=== PATIENT | female | born 1935 | race Caucasian/White ===

== ENCOUNTER → 2017-11-29 08:22 | Outpatient (CLI) | payer MEDICARE, SELFPAY ==
--- NOTE | 2017-11-29 | DI.MG.S_ITS ---
UNILATERAL LEFT DIGITAL SCREENING MAMMOGRAM 3D/2D WITH CAD POST MASTECTOMY: 11/29/2017 CLINICAL: Routine screening. Personal history of right breast cancer. Family history of breast cancer. Comparison is made to exams dated: 11/18/2016 mammogram, 07/18/2014 mammogram, and 04/12/2013 mammogram - [facility]. There are scattered fibroglandular elements in the left breast. Current study was also evaluated with a Computer Aided Detection (CAD) system. No significant masses, calcifications, or other findings are seen in the breast. There has been no significant interval change. IMPRESSION: NEGATIVE There is no mammographic evidence of malignancy. A 1 year screening mammogram is recommended. This exam was interpreted at Station ID: [id number]. NOTE: For mammograms, a report in lay terms will be sent to the patient. Approximately 15% of breast malignancies will not be visualized mammographically. In the management of a palpable breast mass, a negative mammogram must not discourage biopsy of a clinically suspicious lesion. Electronically Signed By: Gatito mckeon/eileen:12/01/2017 09:52:21 letter sent: Normal Exam ACR BI-RADS Category 1: Negative [id number]
== END ==
PROVIDERS: Family Provider Family Medicine; PCP Family Medicine; Visit Provider Family Medicine
DX: Z12.31 Encounter for screening mammogram for malignant neoplasm of breast (principal); Z85.3 Personal history of malignant neoplasm of breast; Z80.3 Family history of malignant neoplasm of breast
CPT/HCPCS: 77063; 77065

== ENCOUNTER → 2018-02-18 14:54 | Outpatient (CLI) | payer MEDICARE, SELFPAY | PROVIDERS: Family Provider Family Medicine; PCP Family Medicine; Visit Provider Family Medicine | DX: M85.851 Other specified disorders of bone density and structure, right thigh (principal); Z78.0 Asymptomatic menopausal state; Z85.3 Personal history of malignant neoplasm of breast; Z87.891 Personal history of nicotine dependence | CPT/HCPCS: 77080 ==

== ENCOUNTER 2018-05-27 18:20 | Inpatient (IN) | payer MEDICARE, SELFPAY ==
[2018-05-27 18:27] VITALS: BP 86/45; PULSE 65; RESP 18; TEMP 36.4; O2SAT 98; BMI 21.9
--- NOTE | 2018-05-27 18:31 | DI.CT.S_ITS ---
PROCEDURE: CT ABDOMEN PELVIS W CON INDICATIONS: trauma with lower back pain TECHNIQUE: After the administration of intravenous contrast, 5 mm thick sections acquired from the diaphragm to the symphysis. 5 mm coronal and sagittal reformats were acquired. For radiation dose reduction, the following was used: automated exposure control, adjustment of mA and/or kV according to patient size. COMPARISON: , CR, CHEST 2 VIEW, 06/26/2013, 21:25. , CT, THORAX WITH CONTRAST, 06/23/2013, 10:12. FINDINGS: Image quality: Excellent. ABDOMEN: Lung bases: Lung bases are clear. Heart size is normal. Solid organs: Liver is normal in size and enhancement. A low-density cystic lesion is present within hepatic segment VII which likely represents a simple hepatic cyst but is incompletely characterized. Gallbladder is surgically absent. Biliary system is mildly dilated likely secondary to cholecystectomy and patient age. Pancreas enhances normally. Spleen is normal in size and enhancement. No adrenal nodules. Kidneys demonstrate normal size and enhancement, without hydronephrosis. Peritoneum and bowel: Bowel loops demonstrate normal wall thickness and caliber. No free fluid or air. Nodes and vessels: No retroperitoneal or mesenteric adenopathy by size criteria. Aorta and inferior vena cava are normal in size. There are scattered atheromatous calcifications throughout the aorta and iliac arteries bilaterally. Miscellaneous: No ventral hernias. PELVIS: Genitourinary: Bladder wall thickness is normal. Miscellaneous: No inguinal hernias or adenopathy. Bones: A severe wedge compression deformity is present at L1. This was likely present on the plain film dated 06/26/13. There is an acute appearing minimally displaced comminuted fracture at the superior L2 endplate which involves the anterior column. There is likely a small paraspinous hematoma at this level. fracture of the anterior superior L2 endplate. IMPRESSION: 1. Findings suspicious for acute comminuted minimally displaced superior L2 endplate anterior column compression fracture. 2. No other acute intra-abdominal findings. These findings were discussed with Kristy Powers at 7:48 PM on 05/27/18. Dictated by: Melissa Barrera M.D. on 05/27/2018 at 19:39 Approved by: Melissa Barrera M.D. on 05/27/2018 at 19:49
--- NOTE | 2018-05-27 18:31 | DI.CT.S_ITS ---
PROCEDURE: CT HEAD/BRAIN WO CON INDICATIONS: Fall. TECHNIQUE: Noncontrast 4.5 mm thick angled axial sections acquired from the foramen magnum to the vertex, with coronal and sagittal reformats. For radiation dose reduction, the following was used: automated exposure control, adjustment of mA and/or kV according to patient size. COMPARISON: None. FINDINGS: Image quality: Excellent. CSF spaces: Basal cisterns are patent. No extra-axial fluid collections. The ventricles are symmetric in size and shape. There is an incidentally noted septum pellucidum. Brain: No intracranial masses. A punctate high-density focus is present within the right basal ganglia (series 2, image 12). No other findings suspicious for intracranial hemorrhage. There is cerebral volume loss for age, with resultant ventricular and sulcal prominence. There are periventricular and deep white matter chronic small vessel ischemic changes. There is intracranial internal carotid artery atherosclerosis. Skull and face: Calvarium and visualized facial bones appear intact, without suspicious lesions. Sinuses: Visualized sinuses and mastoids are clear. IMPRESSION: 1. Punctate high-density focus within the right basal ganglia which likely represents calcification. However, no prior studies are available. If there is clinical suspicion for intraparenchymal hemorrhage, a followup [address] could be used to ensure stability of this finding. No other acute intracranial findings. 2. Findings likely associated with chronic microvascular ischemic changes. Dictated by: Melissa Barrera M.D. on 05/27/2018 at 19:37 Approved by: Melissa Barrera M.D. on 05/27/2018 at 19:39
--- NOTE | 2018-05-27 18:31 | DI.CT.S_ITS ---
PROCEDURE: CT CERVICAL SPINE WO CON INDICATIONS: Fall TECHNIQUE: Noncontrast 3 mm thick sections acquired from the skull base to the T4 level. Sagittal and coronal reformats were then constructed. For radiation dose reduction, the following was used: automated exposure control, adjustment of mA and/or kV according to patient size. COMPARISON: [facility], CT, THORAX WITH CONTRAST, 06/23/2013, 10:12. FINDINGS: Image quality: Excellent. Bones: No acute fracture dislocation. There is loss of the expected cervical lordosis and mild kyphosis centered at C6-7. Severe degenerative changes are present throughout the visualized portions of the cervicothoracic spine including intervertebral disc space narrowing, endplate sclerosis, and osteophytosis. Endplate depression is noted at multiple levels. Soft tissues: Prevertebral soft tissues are normal in thickness. No paravertebral hematomas. No apical pneumothoraces. IMPRESSION: 1. Severe degenerative change and multilevel endplate compression deformities. Overall, these have a sclerotic chronic appearance; however no comparison is available to truly determine the acuity of these findings. If there is high clinical suspicion for occult endplate compression deformity, noncontrast MRI of the cervical spine is recommended to evaluate for marrow edema. 2. No other findings to suggest acute cervical spine injury. Dictated by: Melissa Barrera M.D. on 05/27/2018 at 19:32 Approved by: Melissa Barrera M.D. on 05/27/2018 at 19:36
--- NOTE | 2018-05-27 18:34 | ED_ITS ---
HPI - Trauma General Chief Complaint: Trauma Stated Complaint: Fall Time Seen by Provider: 05/27/18 18:23 Source: patient and EMS Mode of arrival: EMS Limitations: no limitations History of Present Illness HPI narrative: Otherwise healthy 83-year-old female not on anticoagulation here after she fell approximately 5 ft off of a stepladder. She was trying to get her CT out of the attic. She states she just lost her balance and fell. She thinks she landed on her right side but is unsure. Was unable to ambulate afterwards secondary to pain. She states she did not hit her head. No loss of consciousness. She arrived in a cervical collar and not on a backboard. Complains of sternum pain and sacrum pain. Related Data Allergies Allergy/AdvReac Type Severity Reaction Status Date / Time No Known Drug Allergies Allergy Verified 05/27/18 19:03 Review of Systems Constitutional Reports body ache(s), Denies fever(s), Denies frequent falls and Denies headache (s) Eyes Denies blurry vision and Denies diplopia ENT Ears, Nose, Mouth, and Throat: Denies dental pain, Denies vertigo, Denies dizziness, Denies headache(s), Denies neck pain, Denies nose pain and Denies disequilibrium Cardiovascular Reports chest pain (Lower sternum), Denies syncope, Denies palpitations and Denies dyspnea Respiratory Denies chest congestion, Denies pain on inspiration and Denies dyspnea Gastrointestinal Gastrointestinal: Denies abdominal pain, Denies constipation, Reports nausea and Denies vomiting Genitourinary Denies flank pain Musculoskeletal Reports back pain (Lower back), Denies myalgias, Denies deformity, Denies arthralgias and Denies neck pain Integumentary/Breasts Denies lesions and Denies rash Neurologic Denies abnormal speech, Denies confusion, Denies vertigo, Denies dizziness, Denies syncope, Denies frequent falls, Denies headache(s) and Denies disequilibrium Psychiatric Denies confusion Endocrine Denies palpitations Hematologic/Lymphatic Denies easy bleeding and Denies easy bruising PFSH Family History Sister Cancer Father Cancer Social History Smoking Status: Never smoker Exam Initial Vital Signs Initial Vital Signs: Vital Signs Temperature 97.6 F 05/27/18 18:27 Pulse Rate 65 05/27/18 18:27 Respiratory Rate 18 05/27/18 18:27 Blood Pressure 86/45 L 05/27/18 18:27 Pulse Oximetry 98 05/27/18 18:27 Const General: cooperative, healthy appearing, comfortable, well developed, well groomed and No acute distress Orientation: alert and oriented x3 Limitations: mental status not altered [facility] Head: normal to inspection, normocephalic, atraumatic, No abrasion, No hematoma and No laceration Ears: hearing grossly normal bilaterally Nose: external nose normal Face and sinus: normal facial exam Mouth: oral mucosae normal Eyes Pupils: PERRL EOM: EOM intact bilaterally Neck Other: In cervical collar no tenderness under the collar Chest Chest: normal inspection of the chest Other: Tenderness to palpation lower sternum without crepitus Resp Effort & Inspection: normal respiratory effort Auscultation: clear to auscultation bilaterally Cardio Rate: regular rate Rhythm: regular rhythm Pulses: radial pulses present GI Inspection: non-distended Palpation: soft, No firm and No tender Back/Spine/Pelvis Cervical Spine: collar present, No cervical spinal tenderness and No step off deformity Thoracic/Lumbar Spine: No paraspinal tenderness, No thoraco-lumbar spasm, No thoracic spinal tenderness and No lumbar spinal tenderness Sacroiliac Joints: nontender Sacrum: tenderness Coccyx: tenderness Skin Lesions: no lesions Rashes: no rashes Neuro General: alert, awake and oriented x3 Cognition: normal cognition Speech: speech normal Motor: muscle tone normal throughout Sensory Exam: no sensory deficits noted Extrem General: normal to inspection, capillary refill normal and normal exam except as noted Psych Appearance: grossly normal and well kempt Scores GCS [place] coma scale eye opening: Spontaneous [place] coma scale verbal response: Orientated [place] coma scale motor response: Obey commands [place] coma scale total score: 15 Course Orders Ordered: ED Orders 05/27/18 18:31 CT abdomen pelvis w con Stat CT cervical spine wo con Stat CT head/brain wo con Stat 05/27/18 18:32 XR chest 1V Stat EKG-12 Lead Stat 05/27/18 20:11 Basic Metabolic Panel Stat Complete Blood Count AUTO DIFF Stat Troponin I Stat 05/27/18 22:11 CT head/brain wo con Stat 05/28/18 01:47 Consult to Physical Therapy Evaluate & Treat 05/28/18 01:48 Consult to Physician Routine Hydromorphone HCl (Dilaudid) 0.5 mg IV Q4HR PRN PRN Reason: Pain, Mild (1-3) Sodium Chloride (Normal Saline 0.9%) 1,000 mls @ 125 mls/hr IV CONT MARIS Last Admin: 05/27/18 18:38 Dose: 125 mls/hr Ondansetron HCl (Zofran) 4 mg IV Q4HR PRN PRN Reason: Nausea And Vomiting Discontinued Medications Hydrocodone Bitart/Acetaminophen ([place] 5/325) 1 tab PO NOW ONE Stop: 05/27/18 20:18 Last Admin: 05/27/18 20:21 Dose: 1 tab Hydromorphone HCl (Dilaudid) 0.5 mg IV NOW ONE Stop: 05/28/18 00:49 Last Admin: 05/28/18 00:55 Dose: 0.5 mg Ketorolac Tromethamine (Toradol) 30 mg IV NOW ONE Stop: 05/27/18 21:45 Last Admin: 05/27/18 21:47 Dose: 30 mg Morphine Sulfate (Morphine) 2 mg IV NOW ONE Stop: 05/27/18 21:33 Last Admin: 05/27/18 21:47 Dose: Ondansetron HCl (Zofran) 4 mg IV NOW ONE Stop: 05/27/18 18:31 Last Admin: 05/27/18 18:38 Dose: 4 mg Vital Signs - 8 hr 05/27/18 18:27 05/27/18 20:05 05/27/18 23:59 Temperature 97.6 F Pulse Rate 65 76 68 Respiratory Rate 18 19 Blood Pressure 86/45 L Blood Pressure [Right Arm] 101/53 L 85/49 L Pulse Oximetry 98 96 05/28/18 00:21 05/28/18 00:40 Temperature Pulse Rate 72 66 Respiratory Rate 18 Blood Pressure Blood Pressure [Right Arm] 116/63 115/69 Pulse Oximetry MDM - Trauma Lab Data Result diagrams: 05/27/18 20:11 05/27/18 20:11 Lab Results 05/27/18 05/27/18 Range/Units 20:11 20:11 WBC 22.1 H (4.5-11.0) X10^3/uL RBC 3.63 L (4.0-5.2) X10^6/uL Hgb 11.4 L (12.0-16.0) g/dL Hct 34.3 L (36-46) % MCV 94.4 (80-100) fL MCH 31.3 (26-34) PG MCHC 33.2 (30-36) % RDW 12.6 (11.6-14.8) % Plt Count 241 (150-400) X10^3/uL Neut % (Auto) 87.6 H (50-75) % Lymph % (Auto) 7.7 L (25-40) % [place] % (Auto) 4.3 (3-14) % Eos % (Auto) 0.2 L (2-4) % Baso % (Auto) 0.2 (0-2) % Neut # (Auto) 94346 H (2154-9173) /uL Sodium 135 L (137-145) mmol/L Potassium 3.8 (3.4-5.1) mmol/L Chloride 100 (98-107) mmol/L Carbon Dioxide 24 (22-32) mmol/L BUN 15 (7-17) mg/dL Creatinine 0.70 (0.52-1.04) mg/dL Estimated GFR > 60.0 (>60) mL/min BUN/Creatinine Ratio 21.4 (6-22) Glucose 99 (80-110) mg/dL Calcium 9.1 (8.4-10.2) mg/dL Troponin I < 0.012 (0.01-0.034) ng/mL Imaging Data Chest x-ray: Radiologist's impression: PROCEDURE: XR CHEST 1V INDICATIONS: Sternum pain after fall TECHNIQUE: One view of the chest was acquired. COMPARISON: [facility], CT, CT CERVICAL SPINE WO CON, 05/27/2018, 18:30. 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 Lungs and pleura: No pleural effusions or pneumothorax. Lungs are clear. Mediastinum: Mediastinal contours appear normal. Heart size is normal. Bones and chest wall: No suspicious bony lesions. Overlying soft tissues appear unremarkable. IMPRESSION: No acute cardiopulmonary findings. Dictated by: Melissa Barrera M.D. on 05/27/2018 at 19:37 Approved by: Melissa Barrera M.D. on 05/27/2018 at 19:37 CT scan - head: Radiologist's impression: PROCEDURE: CT HEAD/BRAIN WO CON INDICATIONS: Fall. TECHNIQUE: Noncontrast 4.5 mm thick angled axial sections acquired from the foramen magnum to the vertex, with coronal and sagittal reformats. For radiation dose reduction, the following was used: automated exposure control, adjustment of mA and/or kV according to patient size. COMPARISON: None. FINDINGS: Image quality: Excellent. CSF spaces: Basal cisterns are patent. No extra-axial fluid collections. The ventricles are symmetric in size and shape. There is an incidentally noted septum pellucidum. Brain: No intracranial masses. A punctate high-density focus is present within the right basal ganglia (series 2, image 12). No other findings suspicious for intracranial hemorrhage. There is cerebral volume loss for age, with resultant ventricular and sulcal prominence. There are periventricular and deep white matter chronic small vessel ischemic changes. There is intracranial internal carotid artery atherosclerosis. Skull and face: Calvarium and visualized facial bones appear intact, without suspicious lesions. Sinuses: Visualized sinuses and mastoids are clear. IMPRESSION: 1. Punctate high-density focus within the right basal ganglia which likely represents calcification. However, no prior studies are available. If there is clinical suspicion for intraparenchymal hemorrhage, a followup [address] could be used to ensure stability of this finding. No other acute intracranial findings. 2. Findings likely associated with chronic microvascular ischemic changes. Dictated by: Melissa Barrera M.D. on 05/27/2018 at 19:37 CT cervical spine: Radiologist's impression: OCEDURE: CT CERVICAL SPINE WO CON INDICATIONS: Fall TECHNIQUE: Noncontrast 3 mm thick sections acquired from the skull base to the T4 level. Sagittal and coronal reformats were then constructed. For radiation dose reduction, the following was used: automated exposure control, adjustment of mA and/or kV according to patient size. COMPARISON: [facility], CT, THORAX WITH CONTRAST, 06/23/2013, 10:12. FINDINGS: Image quality: Excellent. Bones: No acute fracture dislocation. There is loss of the expected cervical lordosis and mild kyphosis centered at C6-7. Severe degenerative changes are present throughout the visualized portions of the cervicothoracic spine including intervertebral disc space narrowing, endplate sclerosis, and osteophytosis. Endplate depression is noted at multiple levels. Soft tissues: Prevertebral soft tissues are normal in thickness. No paravertebral hematomas. No apical pneumothoraces. IMPRESSION: 1. Severe degenerative change and multilevel endplate compression deformities. Overall, these have a sclerotic chronic appearance; however no comparison is available to truly determine the acuity of these findings. If there is high clinical suspicion for occult endplate compression deformity, noncontrast MRI of the cervical spine is recommended to evaluate for marrow edema. 2. No other findings to suggest acute cervical spine injury. Dictated by: Melissa Barrera M.D. on 05/27/2018 at 19:32 CT scan - abdomen: Radiologist's impression: [address] [address] [address] Scan Report Signed Patient: Roro Jacobson MMR#: [id number] : 5Acct:[id number] Age/Sex: 83 / FDate of Service: 05/27/18 Loc: ED Accession Number: [id number] Procedure: CT abdomen pelvis w con Ordering Provider: Max Key D.O. PROCEDURE: CT ABDOMEN PELVIS W CON INDICATIONS: trauma with lower back pain TECHNIQUE: After the administration of intravenous contrast, 5 mm thick sections acquired from the diaphragm to the symphysis. 5 mm coronal and sagittal reformats were acquired. For radiation dose reduction, the following was used: automated exposure control, adjustment of mA and/or kV according to patient size. COMPARISON: [facility], CR, CHEST 2 VIEW, 06/26/2013, 21:25. [facility], CT, THORAX WITH CONTRAST, 06/23/2013, 10:12. FINDINGS: Image quality: Excellent. ABDOMEN: Lung bases: Lung bases are clear. Heart size is normal. Solid organs: Liver is normal in size and enhancement. A low-density cystic lesion is present within hepatic segment VII which likely represents a simple hepatic cyst but is incompletely characterized. Gallbladder is surgically absent. Biliary system is mildly dilated likely secondary to cholecystectomy and patient age. Pancreas enhances normally. Spleen is normal in size and enhancement. No adrenal nodules. Kidneys demonstrate normal size and enhancement, without hydronephrosis. Peritoneum and bowel: Bowel loops demonstrate normal wall thickness and caliber. No free fluid or air. Nodes and vessels: No retroperitoneal or mesenteric adenopathy by size criteria. Aorta and inferior vena cava are normal in size. There are scattered atheromatous calcifications throughout the aorta and iliac arteries bilaterally. Miscellaneous: No ventral hernias. PELVIS: Genitourinary: Bladder wall thickness is normal. Miscellaneous: No inguinal hernias or adenopathy. Bones: A severe wedge compression deformity is present at L1. This was likely present on the plain film dated 06/26/13. There is an acute appearing minimally displaced comminuted fracture at the superior L2 endplate which involves the anterior column. There is likely a small paraspinous hematoma at this level. fracture of the anterior superior L2 endplate. IMPRESSION: 1. Findings suspicious for acute comminuted minimally displaced superior L2 endplate anterior column compression fracture. 2. No other acute intra-abdominal findings. Repeat head CT: Radiologist's impression: Stable appearing punctate increased attenuation in the right basal ganglia without surrounding edema or likely represents a punctate calcification or Silva's a bal. No acute intracranial hemorrhage is identified. ECG Data Attestation: I personally reviewed and interpreted this ECG as follows: Prior ECG tracings: not available for review Interpretation: Sinus rhythm Ventricular rate is 74 Normal axis Normal QRS Normal QTC No ST T wave changes MDM Narrative Medical decision making narrative: Patient's CT scan of the head initially showed a calcification versus bleed. Repeat head CT was unremarkable. This does appear to be a calcification. C-spine was cleared after negative CT scan. Chest x-ray was negative. Troponin was negative. EKG was unremarkable. No signs of sternal fracture. Patient does have an old known L1 compression fracture. The L2 compression fracture does appear to be new. I discussed the case with Dr. Marquez with Orthopedic surgery who states that this is a stable fracture and does not need surgery. The patient would probably benefit from a TLSO brace. Patient was initially hypotensive with systolic in the 80s/90s. She has no signs of bleeding on any of her workup here in the ER. This did improve. We attempted to ambulate the patient however this was unsuccessful secondary to her feeling ?dizzy? and also pain in her back. The oral [place] pill and Toradol was unsuccessful controlling her pain. Patient was given 0.5 mg of Dilaudid which she states did improve her pain somewhat however she was still unable to stand. I discussed the case with Dr. Zavala who is the patient 's primary care doctor. Will admit the patient for further evaluation and treatment. Patient was notified of the admission. She expressed understanding and agreement. Discharge Plan Departure Patient Disposition: Admitted as Observation Clinical Impression: Compression fracture of L2 lumbar vertebra
[2018-05-27] MEDS: ONDANSETRON 4 MG/2 ML INJ IV (18:38)
[2018-05-27] MEDS: SODIUM CHLORIDE 0.9% 1,000 ML 125 ML IV (18:38)
--- NOTE | 2018-05-27 19:24 | RT ---
Patient in DI for several scans before EKG could be performed.
[2018-05-27 20:05] VITALS: BP 101/53; PULSE 76
[2018-05-27 20:18] LABS: Add Manual Diff / Slide Review NO; Basophils Percent Auto 0.2 % (0-2); Eosinophils Percent Auto 0.2 % (2-4); Hematocrit 34.3 % (36-46); Hemoglobin 11.4 g/dL (12.0-16.0); Lymphocytes Percent Auto 7.7 % (25-40); Mean Corpuscular HGB Conc 33.2 % (30-36); Mean Corpuscular Hemoglobin 31.3 PG (26-34); Mean Corpuscular Volume 94.4 fL (80-100); Monocytes Percent Auto 4.3 % (3-14); Neutrophils Absolute Auto 19400 /uL (3000-5900); Neutrophils Percent Auto 87.6 % (50-75); Platelet Count 241 X10^3/uL (150-400); Red Blood Cell Count 3.63 X10^6/uL (4.0-5.2); Red Cell Distribution Width 12.6 % (11.6-14.8); White Blood Cell Count 22.1 X10^3/uL (4.5-11.0)
[2018-05-27] MEDS: HYDROCODONE/ACET 5/325 TABLET 1 TAB PO (20:21)
[2018-05-27 20:30] LABS: BUN Creatinine Ratio 21.4 (6-22); Blood Urea Nitrogen 15 mg/dL (7-17); Calcium 9.1 mg/dL (8.4-10.2); Carbon Dioxide 24 mmol/L (22-32); Chloride 100 mmol/L (98-107); Estimated Glomerular Filt Rate > 60.0 mL/min (>60); Glucose 99 mg/dL (80-110); HEMOLYSIS < 15 (0-50); Potassium 3.8 mmol/L (3.4-5.1); Sodium 135 mmol/L (137-145)
[2018-05-27 20:44] LABS: Troponin I < 0.012 ng/mL (0.01-0.034)
[2018-05-27] MEDS: KETOROLAC 60 MG/2 ML VIAL 30 MG IV (21:47)
--- NOTE | 2018-05-27 22:11 | DI.CT.S_ITS ---
PROCEDURE: CT HEAD/BRAIN WO CON INDICATIONS: Repeat head CT per rads recommendation. Fall. TECHNIQUE: Noncontrast 4.5 mm thick angled axial sections acquired from the foramen magnum to the vertex, with coronal and sagittal reformats. For radiation dose reduction, the following was used: automated exposure control, adjustment of mA and/or kV according to patient size. COMPARISON: [facility], CT, CT HEAD/BRAIN WO CON, 05/27/2018, 18:40. FINDINGS: Image quality: Excellent. CSF spaces: Basal cisterns are patent. No extra-axial fluid collections. The ventricles are symmetric in size and shape. Incidental note made of septum cavum pellucidum et vergae. Brain: No intracranial bleeds or masses. Incidental note made of punctate physiologic calcification in the right globus pallidus. There is cerebral volume loss for age, with resultant ventricular and sulcal prominence. There are periventricular and deep white matter chronic small vessel ischemic changes. There is intracranial internal carotid artery atherosclerosis. Skull and face: Calvarium and visualized facial bones appear intact, without suspicious lesions. Sinuses: Visualized sinuses and mastoids are clear. IMPRESSION: No acute intracranial disease process. No intracranial hemorrhage. Dictated by: Anh Chavez MD, PhD on 05/28/2018 at 7:44 Approved by: Anh Chavez MD, PhD on 05/28/2018 at 7:48
[2018-05-27 23:59] VITALS: BP 85/49; PULSE 68; RESP 19; O2SAT 96
--- NOTE | 2018-05-27 23:59 | PC.NURSE ---
I dangled her at bedside,she became lightgheaded she said.I placed her at a [address]She is alert and joking with staff and taking oral liquids now.
[2018-05-28] VITALS (11 sets, daily range): BP systolic 80–122; BP diastolic 42–69; PULSE 66–109; RESP 14–20; TEMP 36.8–37.6; O2SAT 89–97; BMI 21.9
[2018-05-28] MEDS: HYDROMORPHONE 1 MG INJ 0.5 MG IV ×3 (00:55→22:04)
--- NOTE | 2018-05-28 04:09 | PC.NURSE ---
Admission: Pt up to the floor @0245 by Vangie crane, transferred to floor bed by slider board. IV fluids restarted, PO fluids given to pt, educated pt on room, call light, white board, pain scale, TV channels and bed functions. Pt reporting tolerating pain at this time and requested a snack. Upper [place] yogurt was given as pt denied nausea. Pt resting comfortably at this time.
[2018-05-28 08:33] LABS: Add Manual Diff / Slide Review NO; Basophils Percent Auto 0.5 % (0-2); Eosinophils Percent Auto 0.7 % (2-4); Hematocrit 31.8 % (36-46); Hemoglobin 10.9 g/dL (12.0-16.0); Lymphocytes Percent Auto 11.2 % (25-40); Mean Corpuscular HGB Conc 34.2 % (30-36); Mean Corpuscular Hemoglobin 32.3 PG (26-34); Mean Corpuscular Volume 94.5 fL (80-100); Monocytes Percent Auto 3.4 % (3-14); Neutrophils Absolute Auto 8700 /uL (3000-5900); Neutrophils Percent Auto 84.2 % (50-75); Platelet Count 186 X10^3/uL (150-400); Red Blood Cell Count 3.37 X10^6/uL (4.0-5.2); Red Cell Distribution Width 12.3 % (11.6-14.8); White Blood Cell Count 10.3 X10^3/uL (4.5-11.0)
[2018-05-28 08:41] LABS: BUN Creatinine Ratio 21.4 (6-22); Blood Urea Nitrogen 15 mg/dL (7-17); Calcium 8.3 mg/dL (8.4-10.2); Carbon Dioxide 27 mmol/L (22-32); Chloride 101 mmol/L (98-107); Estimated Glomerular Filt Rate > 60.0 mL/min (>60); Glucose 114 mg/dL (80-110); HEMOLYSIS < 15 (0-50); Potassium 3.8 mmol/L (3.4-5.1); Sodium 133 mmol/L (137-145)
[2018-05-28] MEDS: SODIUM CHLORIDE 0.9% 1,000 ML 125 ML IV (10:28)
[2018-05-28] MEDS: CITALOPRAM 20 MG TABLET PO (10:28)
--- NOTE | 2018-05-28 10:45 | PT.IIE ---
Surgical History (Last Reviewed 03/25/18 @ 14:24 by Jeremie De Leon MD) History of cholecystectomy (Acute) Status post mastectomy (Acute) Medical History (Last Reviewed 03/25/18 @ 14:24 by Jeremie De Leon MD) Breast cancer in female (Acute) Depression (Acute) Physical Therapy Inpatient Evaluation/Re-Eval M1 PT/OT-IP Prior Functional Status Start: 05/28/18 11:16 Freq: NEEDED Status: Active Protocol: Document 05/28/18 10:45 AB (Rec: 05/28/18 11:33 AB [email or web address]) Medical Review Prior Functional Status Medical History Reviewed Yes Communication able to make needs known Mobility and Gait stated that she is independent with all mobilities and ambulation without AD Social History Household Members spouse family Living Arrangements House Number of Floors (Floors) Two Floors Number of Stairs To Enter/Railing? pt stays on main level; pt has no steps to enter Home Environment Standard Height Toilet High Toilet Walk in Shower Home Equipment Front Wheel Walker Straight Cane Raised Toilet Seat w/Armrests Shower Seat with Backrest Hand Held Shower Grab Bars In Shower Employment Status Retired Additional Social History Comment pt lives with spouse and sister; stated that her sister will be able to assist her at home M2 PT-IP Current Condition Start: 05/28/18 11:16 Freq: NEEDED Status: Active Protocol: Document 05/28/18 10:45 AB (Rec: 05/28/18 11:33 AB [email or web address]) Physical Therapy Current Condition Current Condition Evaluation Date 05/28/18 Treatment Diagnosis L2 compression fx; difficulty in walking Onset Date 05/28/18 Precautions Lumbar Precautions Log Roll No Twisting Limit Bending Lifting Restriction of 10 lbs Other Precautions BP M3 PT-IP Subjective Start: 05/28/18 11:16 Freq: NEEDED Status: Active Protocol: Document 05/28/18 10:45 AB (Rec: 05/28/18 11:33 AB [email or web address]) Subjective Physical Therapy Visit Type Type Initial Evaluation Visit Start Time 10:45 Visit Stop Time 11:11 Total Visit Minutes 26 Number of HEALTH AND WELLNESS COORDINATOR Visits 0 Physical Therapy Visit Comments Patient Comments pt agreeable to do PT Therapy Pain Assessment Pain When Pain Assessed At Rest Pain Present Pain Present Pain Reported Location Lower Back Intensity 3 Scale Used increases to 6/10 with mobility Pain Behaviors Guarding Pain Management Techniques Re-positioning Timing of Activity with Medications M4 PT-IP Mobility and Gait Start: 05/28/18 11:16 Freq: NEEDED Status: Active Protocol: Document 05/28/18 10:45 AB (Rec: 05/28/18 11:33 AB [email or web address]) PT-Bed Mobility Assessment Rolling Type of Rolling Log Rolling Level of Assist Standby Assistance Supine to Sit Supine to Sit Standby Assistance Sit to Supine Sit to Supine Standby Assistance Scooting Scooting to Edge of Bed Standby Assistance PT-Transfer Assessment Comments Mobility Comments BP in supine 121/54; pt sat on EOB and c/o lightheadedness and nausea. tolerated ~ 10 sec of sitting and stated that she has to lie back down. unable to obtain BP in sitting due to pt's request to go back in bed. BP in supine after sittin/52. pt wanting to use the toilet and tries to sit up again and completed supine to sit SBA with cues. pt tolerated ~ 10 sec of sitting again and c/o nausea and pain and stated that she needs to lay down. BP in supine after 2nd sitting : 96/49. BP after ~ 2 min of restin/60. Nurse aware of BP. unable to sit pt with TLSO brace due to pt unable to tolerate much activity this morning. will f/u in afternoon. PT-Balance Assessment Sitting Balance and Reactions Static Sitting Balance Ability Good Dynamic Sitting Balance Ability Fair M5 PT-IP Objective Assessments Start: 05/28/18 11:16 Freq: NEEDED Status: Active Protocol: Document 05/28/18 10:45 AB (Rec: 05/28/18 11:33 AB [email or web address]) Orientation Orientation/Cognition Level of Alertness Alert Orientation Name Age Birthday Month Date Year Day of Week Place Situation Safety Awareness Understands Safety Issues Gross Range of Motion Lower Extremity ROM Assessment Within Functional Limits Strength Lower Extremity Strength Assessment Within Functional Limits Sensation Assessment Sensation Gross Sensation WNL M6 PT-IP Treatment Start: 05/28/18 11:16 Freq: NEEDED Status: Active Protocol: Document 05/28/18 10:45 AB (Rec: 05/28/18 11:33 AB [email or web address]) Physical Therapy Treatment Education Education Provided Safety Equipment Issued Equipment Type and Company received order for TLSO brace. attempted to fit pt with brace but not completed due to pt's decrease activity tolerance. will f/u next tx session Other Treatments Other Treatment Performed educated on log roll bed mobility M7 PT-IP Assessment and Plan Start: 05/28/18 11:16 Freq: NEEDED Status: Active Protocol: Document 05/28/18 10:45 AB (Rec: 05/28/18 11:33 AB [email or web address]) PT Summary Assessment and Plan Potential Rehabilitation Potential Fair Status of Condition at Evaluation Evolving Summary Impairments Pain Strength Bed Mobility Transfers Gait Activity Tolerance Assessment Summary pt requiring SBA with bed mobility but unable to assess transfer and ambulation due to pt's decrease in BP and unable to tolerate much activity this morning. needs further assessment to determin d/c plans. will also fit pt with TLSO brace as ordered. Goals Bed Mobility Goal Independent Transfer Goal Standby Assistance Front Wheeled Walker Gait Goal Standby Assistance Front Wheel Walker Gait Distance 100 Other Goals STG: to improve bed mobility, transfers to SBA and ambulation using FWW SBA ~ 75 ft LTG: to improve ambulation using least restrictive device ~ 100 ft SBA Days to Meet Goals 5 Frequency of Treatment Frequency Of Treatment Twice a Day Treatment Plan Physical Therapy Treatment Plan Bed Mobility Training Transfer Training Gait Training Therapeutic Exercise Balance Retraining Post Op Education Discharge Planning Hot or Cold Pack Neuromuscular Re-ed Coordination Retraining Manual Therapy Recommendations To Nursing Amount of Assist Needed PT/OT Assist Only Discharge Recommendations Other Discharge Recommendations needs further assessment
[2018-05-28] MEDS: ONDANSETRON 4 MG/2 ML INJ IV ×2 (11:02→22:17)
--- NOTE | 2018-05-28 12:27 | CM.DANOTE ---
DCP: Case received, EMR reviewed and met with patient. Introduced self and role. DCP template completed with information currently available. Patient is an 83 year old female who admitted to the care of the hospitalist team. PCP: Dr. Zavala. Payer: confirmed: Medicare/[employer]. Patient came to hospital via ambulance secondary to a fall from a step ladder. Patient carries diagnosis of L2 compression fracture. Sister, Daxa came in to visit patient. Patient had been sleeping most of the morning, and was able to assess. Sister Daxa lives with patient. and patient's , Freddy, as well. Patient stated that her is an invalid, stated that he has some memory issues. Patient has been independent at home. At this time, patient quite ill, vomiting. Depending on progression in hospital, and if inpatient, may need jail. This will also depend on when and how she does work with physical therapy. P: DCP to continue to follow closely as plan unfolds. Unclear if patient will be able to return home at this time without short stay at skilled facility. This will also depend on inpatient status.
--- NOTE | 2018-05-28 12:50 | PC.NURSE ---
Patient was unable to get up and get fitted with P.T. this morning related to feeling too sick, weak, dizzy and nauseated when sitting up. Patient medicated with zofran with good effect for awhile, then had episode of nausea with 100cc emesis once she attempted to sit up in bed and eat. Patient also requested pain medications, IV dilaudid, as ordered for pain at 3/10. Now patient resting in bed, sister at her bedside, wants to try and sleep. Will continue to monitor.
--- NOTE | 2018-05-28 13:35 | PT.IIE ---
Surgical History (Last Reviewed 03/25/18 @ 14:24 by Jeremie De Leon MD) History of cholecystectomy (Acute) Status post mastectomy (Acute) Medical History (Last Reviewed 03/25/18 @ 14:24 by Jeremie De Leon MD) Breast cancer in female (Acute) Depression (Acute) Physical Therapy Inpatient Evaluation/Re-Eval M1 PT/OT-IP Prior Functional Status Start: 05/28/18 11:16 Freq: NEEDED Status: Active Protocol: Document 05/28/18 10:45 AB (Rec: 05/28/18 11:33 AB [email or web address]) Medical Review Prior Functional Status Medical History Reviewed Yes Communication able to make needs known Mobility and Gait stated that she is independent with all mobilities and ambulation without AD Social History Household Members spouse family Living Arrangements House Number of Floors (Floors) Two Floors Number of Stairs To Enter/Railing? pt stays on main level; pt has no steps to enter Home Environment Standard Height Toilet High Toilet Walk in Shower Home Equipment Front Wheel Walker Straight Cane Raised Toilet Seat w/Armrests Shower Seat with Backrest Hand Held Shower Grab Bars In Shower Employment Status Retired Additional Social History Comment pt lives with spouse and sister; stated that her sister will be able to assist her at home M2 PT-IP Current Condition Start: 05/28/18 11:16 Freq: NEEDED Status: Active Protocol: Document 05/28/18 15:35 AB (Rec: 05/28/18 16:29 AB [id number]) Physical Therapy Current Condition Current Condition Evaluation Date 05/28/18 Treatment Diagnosis L2 compression fx; difficulty in walking Onset Date 05/28/18 Precautions Lumbar Precautions Log Roll No Twisting Limit Bending Lifting Restriction of 10 lbs Brace TLSO brace: nurse got a verbal order from pt's doctor that TLSO on when out of bed but can be when in bed. Other Precautions BP M3 PT-IP Subjective Start: 05/28/18 11:16 Freq: NEEDED Status: Active Protocol: Document 05/28/18 15:35 AB (Rec: 05/28/18 16:28 AB [id number]) Subjective Physical Therapy Visit Type Type Treatment Note Visit Start Time 15:35 Visit Stop Time 16:10 Total Visit Minutes 35 Number of SOFTBALL COACH Visits 0 Physical Therapy Visit Comments Patient Comments pt agreeable to do PT Therapy Pain Assessment Pain When Pain Assessed At Rest Pain Present Pain Present Pain Reported Location Lower Back Intensity 3 Scale Used Numeric (1 - 10) Chest Intensity 3 Scale Used sternal area; pt stated that she has hurt her sternum during the fall Pain Management Techniques Re-positioning Timing of Activity with Medications M4 PT-IP Mobility and Gait Start: 05/28/18 11:16 Freq: NEEDED Status: Active Protocol: Document 05/28/18 15:35 AB (Rec: 05/28/18 16:28 AB [id number]) PT-Bed Mobility Assessment Supine to Sit Supine to Sit Standby Assistance 1 Person Assistance Sit to Supine Sit to Supine Minimal Assistance 1 Person Assistance Scooting Scooting to Edge of Bed Standby Assistance PT-Transfer Assessment Sit to and From Stand Sit to and from Stand Maximum Assistance 1 Person Assistance Equipment Transfer Assistive Device Gait Belt Front Wheeled Walker Orthotic/Prosthetic Devices or Brace: No Comments Mobility Comments BP in supine: 101/54 pt completed bed mobility supint to sit SBA and cues. pt able to sit on EOB CGA. BP: 102/59 . fitted TLSO brace on pt and pt stated that her back feels better already. pt completed sit to stand max A and max cues and pt tolerated ~ 10 sec of standing and then stated that she has to sit down due to c/o dizziness. pt sat back down but after few seconds stated that she has to lay back down. required min A to elevate LE up in bed during sit to supine. positioned pt in bed. BP in supine: 96/63. pt requested to leave TLSO on her in bed. Gait Assessment Comments Gait Comments unable at this time M5 PT-IP Objective Assessments Start: 05/28/18 11:16 Freq: NEEDED Status: Active Protocol: Document 05/28/18 10:45 AB (Rec: 05/28/18 11:33 AB [email or web address]) Orientation Orientation/Cognition Level of Alertness Alert Orientation Name Age Birthday Month Date Year Day of Week Place Situation Safety Awareness Understands Safety Issues Gross Range of Motion Lower Extremity ROM Assessment Within Functional Limits Strength Lower Extremity Strength Assessment Within Functional Limits Sensation Assessment Sensation Gross Sensation WNL M6 PT-IP Treatment Start: 05/28/18 11:16 Freq: NEEDED Status: Active Protocol: Document 05/28/18 15:35 AB (Rec: 05/28/18 16:28 AB [id number]) Physical Therapy Treatment Education Education Provided Precautions Safety Equipment Issued Equipment Type and Company TLSO brace from [facility] [employer]. M7 PT-IP Assessment and Plan Start: 05/28/18 11:16 Freq: NEEDED Status: Active Protocol: Document 05/28/18 15:35 AB (Rec: 05/28/18 16:28 AB [id number]) PT Summary Assessment and Plan Potential Rehabilitation Potential Fair Summary Impairments Pain ROM Strength Balance Coordination Sensation Tone Cognition Bed Mobility Transfers Gait Activity Tolerance Progress Towards Goals Slow Progress due to Medical Issues Slow Progress due to Activity Tolerance Assessment Summary pt continues not to tolerate much activity this afternoon but able to stand up requiring max A and cues. d/c plan depending on progress and assistance available at home. will continue to assess. Goals Bed Mobility Goal Independent Transfer Goal Standby Assistance Front Wheeled Walker Gait Goal Standby Assistance Front Wheel Walker Gait Distance 100 Other Goals STG: to improve bed mobility, transfers to SBA and ambulation using FWW SBA ~ 75 ft LTG: to improve ambulation using least restrictive device ~ 100 ft SBA Days to Meet Goals 5 Frequency of Treatment Frequency Of Treatment Twice a Day Treatment Plan Physical Therapy Treatment Plan Bed Mobility Training Transfer Training Gait Training Therapeutic Exercise Balance Retraining Post Op Education Discharge Planning Hot or Cold Pack Neuromuscular Re-ed Coordination Retraining Manual Therapy Recommendations To Nursing Amount of Assist Needed PT/OT Assist Only Discharge Recommendations Other Discharge Recommendations needs further assessment
--- NOTE | 2018-05-28 13:40 | PC.NURSE ---
Message left with Dr. Zavala's office for her to call back this RN for update on patient. Patient laying in bed, states she is feeling better after IV pain medications administered, trying to sleep. Bed alarm on for safety, call light within reach.
[2018-05-28] MEDS: SODIUM CHLORIDE 0.9% 1,000 ML 1000 ML IV (14:08)
[2018-05-28 14:47] LABS: Amylase 61 U/L (30-110)
[2018-05-28 14:48] LABS: Alanine Aminotransferase 40 IU/L (9-52); Albumin 3.3 g/dL (3.5-5.0); Albumin Globulin Ratio 1.3 (1.0-2.8); Alkaline Phosphatase 64 U/L (38-126); Aspartate Aminotransferase 60 IU/L (14-36); Bilirubin Total 0.7 mg/dL (0.2-1.3); Bilirubin Unconjugated 0.6 mg/dL (0.0-1.1); Globulin 2.5 g/dL (1.7-4.1); HEMOLYSIS < 15 (0-50); Total Protein 5.8 g/dL (6.3-8.2)
--- NOTE | 2018-05-28 17:20 | P.HP_ITS ---
History of Present Illness Date Patient Seen: 05/28/18 Time Patient Seen: 08:19 Chief complaint: Fall Narrative: This pleasant 83-year-old female well known to me presents to the emergency room via ambulance due to fall with complaints of sternal pain and low back pain and sacral pain. She was monitored in the ER and given Dilaudid for pain but was unable to mobilize due to L1 compression fracture and was admitted to the hospital for further treatment and monitoring. Her workup in the ER consisted of a CT scan of the head which was repeated because there was a concern for possible bleed and repeat CT scan 4 hr later was entirely normal showing only small vessel ischemic changes. She had a CT scan of her cervical spine that did not show acute abnormalities and she had a CT scan of her abdomen and pelvis that showed evidence of an acute mildly displaced L1 compression fracture. This was discussed with the orthopedist on-call doctor Armani. He recommended hospitalization for pain control and recommended she be fitted in an appropriate lumbar brace, MAGI . The patient has continued to have difficulty with getting up due to severe pain as well as feeling lightheaded and weak. She had episode of vomiting. Since this happened at approximately noon she was given Zofran and is currently being given a L of IV fluids because a suspected that she is dehydrated. She is feeling a little bit better. She was able to keep yogurt and 7 up down. She has not had any further vomiting. She has a brace in place and feels that it is comfortable because it is holding her together . Past medical history: 1. Depression 2. Distant history of breast cancer in 1971 3. osteopenia medications: Citalopram 20 mg daily calcium vitamin-D allergies: No known drug allergies past surgical history: 1. 1971 right mastectomy 2. cholecystectomy family history: 1. Sister with hypothyroidism 2. father of bladder cancer, smoker 3. 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 Her sister also lives with her and she has caregiver for her as well. Patient's sons both live in and [facility] and she is involved in her grandchildren's lives. They are supportive. Review of systems: 2 weeks ago patient had episode of vomiting and fever and chills which resolved spontaneously. She has had no further symptoms. She did not have any diarrhea. Last bowel movement was yesterday. No change in bowel movements. No abdominal pain. No nausea or vomiting until she fell. She denies any other pain other than the sternum and the sacrum. She denies any headache or visual changes. She denies any urine symptoms. She denies any worsening depression or anxiety. Patient History Family & Social History Social History: household members spouse,family Prior Living Arrangements House Safety & Behavioral: Feels Safe in Current Yes Environment Been Physically Hurt or No Threatened By a Person Suicidal Ideation Description None Tobacco & Substance use: Smoking Status Never smoker alcohol intake frequency 0-2 drinks per day Substance Use Type does not use Meds Home Medications Medication Instructions Recorded Confirmed Type No Known Home Medications 05/28/18 05/28/18 History Allergies Allergy/AdvReac Type Severity Reaction Status Date / Time No Known Drug Allergies Allergy Verified 05/27/18 19:03 Exam Vital Signs (past 8 hours): - 05/28/18 11:46 05/28/18 16:28 Temperature 98.6 F 99.2 F Pulse Rate 90 88 Respiratory Rate 14 16 Blood Pressure 95/52 L 111/61 Pulse Oximetry 93 89 L Oxygen Delivery Method Room Air Oxygen Flow Rate 0 Narrative Exam Narrative: Alert and oriented x3, able to answer questions and give history but does not really open her eyes except for briefly HEENT: Pupils equal round reactive to light. Oropharynx shows mucous membranes are moist and pink without lesions neck: Supple without adenopathy or thyromegaly chest: Clear to auscultation without wheezes rhonchi or crackles though difficulty auscultating due to brace being in place cor: Regular rate and rhythm with distant S1 and S2 and no murmur rubs or gallops abdomen: Positive bowel sounds, soft, nontender, extremities: No edema, pulses intact neurologic exam limited by pain and in bed but no focal findings. Bilateral upper and lower extremities show no focal findings with normal strength and movement primarily the lower extremities. Skin exam previous infection is hematoma has healed up on a left lower extremity Objective Labs Result Diagrams: 05/28/18 08:17 05/28/18 08:17 Labs: Laboratory Results - last 24 hr 05/27/18 05/27/18 05/28/18 20:11 20:11 08:17 WBC 22.1 H 10.3 D RBC 3.63 L 3.37 L Hgb 11.4 L 10.9 L Hct 34.3 L 31.8 L MCV 94.4 94.5 MCH 31.3 32.3 MCHC 33.2 34.2 RDW 12.6 12.3 Plt Count 241 186 Neut % (Auto) 87.6 H 84.2 H Lymph % (Auto) 7.7 L 11.2 L [place] % (Auto) 4.3 3.4 Eos % (Auto) 0.2 L 0.7 L Baso % (Auto) 0.2 0.5 Neut # (Auto) 47883 H 8700 H Sodium 135 L Potassium 3.8 Chloride 100 Carbon Dioxide 24 BUN 15 Creatinine 0.70 Estimated GFR > 60.0 BUN/Creatinine Ratio 21.4 Glucose 99 Calcium 9.1 Total Bilirubin Conjugated Bilirubin Unconjugated Bilirubin AST ALT Alkaline Phosphatase Troponin I < 0.012 Total Protein Albumin Globulin Albumin/Globulin Ratio Amylase 05/28/18 05/28/18 05/28/18 08:17 08:17 08:17 WBC RBC Hgb Hct MCV MCH MCHC RDW Plt Count Neut % (Auto) Lymph % (Auto) [place] % (Auto) Eos % (Auto) Baso % (Auto) Neut # (Auto) Sodium 133 L Potassium 3.8 Chloride 101 Carbon Dioxide 27 BUN 15 Creatinine 0.70 Estimated GFR > 60.0 BUN/Creatinine Ratio 21.4 Glucose 114 H Calcium 8.3 L Total Bilirubin 0.7 Conjugated Bilirubin 0.0 Unconjugated Bilirubin 0.6 AST 60 H ALT 40 Alkaline Phosphatase 64 Troponin I Total Protein 5.8 L Albumin 3.3 L Globulin 2.5 Albumin/Globulin Ratio 1.3 Amylase 61 Assessment & Plan Plan: Assessment/Plan Narrative: 83-year-old female's status post fall from 5 ft while trying to get her cat out of the attic and she became unbalanced on the latter. She sustained an L1 compression fracture. She is having difficulty with mobility and pain and will likely require to over midnight stays to get her pain under control and increase her mobility. We will continue with Dilaudid for pain control. If her nausea and vomiting persists we may need to change this. Will continue with Brace. Will continue with Physical therapy. Assessment 2. Nausea and vomiting of unclear etiology without evidence of pancreatitis and surgically absent gallbladder. Suspect most likely etiology is secondary to pain but must consider possibility of Dilaudid contributing. Plan: Reviewed CT scan of the abdomen and pelvis. Will place on a PPI. Will recheck labs in a.m.. Will switch pain medications if persists. Will replenish fluids as she is dehydrated. will continue Zofran as needed Assessment 3. Dehydration plan: IV fluids assessment 4. Leukocytosis improved with a.m. labs. Suspect related to stress of fall and injury. Plan: Urine done to rule out infection. Will continue to monitor. Assessment 5. Depression plan: Continue outpatient medications. No acute issues. Assessment 6. GI prophylaxis plan: Protonix IV assessment 7. DVT prophylaxis plan: Continue Lovenox assessment 8. Hyponatremia mild suspect related injury. Plan: Will continue to follow. code status is full code Quality VTE Deep Vein Thrombosis/Pulmonary Embolism Present on Admission: No
[2018-05-28] MEDS: PANTOPRAZOLE 40 MG VIAL IV (18:28)
--- NOTE | 2018-05-28 19:50 | PC.NURSE ---
Addendum entered by Renée Chaves R.N. 05/28/18 21:59: Patient has not voided all shift and reports she does not feel the need to void, even after getting 1L fluid bolus. Bladder scan showed approx. 200 ml in bladder, labs do not show kidney failure per Dr. Eli. Per RT, patient has fine crackles in bases of lungs but is otherwise clear, does not appear to be fluid overloaded. BLE not observed to have edema. Patient still appears sleepy and desats down to 90% on 4L NC when moved in bed. patient states pain is 6/10, is now getting IV pain meds as ordered. Per Dr. Eli, ordered lasix PRN to give if sats drop lower, and ordered PRN bolus of 250 ml NS to give if BP gets lower. Dr Eli states to keep patient on O2 for now and titrate as needed. Patient attempted to void on bedpan; per PT report, patient is PT/OT transfer only for now. Patient has not been successful to void on bedpan. Will attempt again when appropriate. Original Note: Paged out for Dr. Eli business education instructor; patient is overly sleepy and has a difficult time keeping her eyes open and verbally her responses are slow to this RN's questions. ENVIRONMENTAL COMPLIANCE OFFICER reported patient's O2 is high 60's low 70's, so this RN placed patient on 4 L O2 via NC and elevated HOB to a comfortable level and so patient could breathe deeper. Repositioned and took off brace to allow for chest expansion; per orders, patient can have brace off while in bed. Call light in reach, will continue to monitor and report as needed.
[2018-05-28] MEDS: SODIUM CHLORIDE 0.9% 1,000 ML 42 ML IV (20:09)
[2018-05-29] VITALS (15 sets, daily range): BP systolic 96–124; BP diastolic 53–71; PULSE 81–93; RESP 15–20; TEMP 36.4–36.7; O2SAT 92–100
[2018-05-29 01:37] LABS: RBC Urine None Seen (0-5/HPF)
[2018-05-29 01:38] LABS: Appearance Urine UA CLEAR; Bilirubin Urine UA NEGATIVE (NEGATIVE); Glucose Urine UA NEGATIVE (Normal); Ketones Urine UA TRACE (NEGATIVE); Leukocyte Esterase Urine UA 1+ (NEGATIVE); Nitrite Urine UA NEGATIVE (Negative); Occult Blood Urine UA TRACE-INTACT (Negative); Protein Urine UA TRACE (Negative); Urobilinogen Urine UA 0.2 E.U./dL (0.2)
[2018-05-29 01:41] LABS: Color Urine UA Dark Yellow
[2018-05-29 01:45] LABS: Bacteria Urine Few (2-10); Mucus Urine 1+ (Negative); Squamous Epithelial Cell Urine 0-1 /HPF; WBC Urine 10-30/HPF (0-5/HPF)
[2018-05-29 01:46] LABS: Culture Indicated Urine Specimen Cultured; Hyaline Casts Urine 0-1/LPF
[2018-05-29 01:47] LABS: Amorphous Sediment Urine 1+
[2018-05-29] MEDS: HYDROMORPHONE 1 MG INJ 0.5 MG IV ×2 (05:38→11:47)
--- NOTE | 2018-05-29 05:51 | PC.NURSE ---
Shift: Pt was somnolent for carbide die maker but arousable to name and touch and is able to help turn herself in bed. Pt was able to maintain O2 sat greater than 93 on 4L NC. Due to somnolence have not attempted to titrate O2 but will attempt now that patient is more awake. Pt was able to void on bedpan and urine was sent for U/A and culture which is pending. Pt attempting to use bedpan at the time of this note.
[2018-05-29 05:59] LABS: Add Manual Diff / Slide Review NO; Basophils Percent Auto 0.3 % (0-2); Eosinophils Percent Auto 0.2 % (2-4); Mean Corpuscular HGB Conc 34.4 % (30-36); Mean Corpuscular Hemoglobin 32.6 PG (26-34); Mean Corpuscular Volume 94.9 fL (80-100); Monocytes Percent Auto 4.7 % (3-14); Neutrophils Absolute Auto 11400 /uL (3000-5900); Neutrophils Percent Auto 86.8 % (50-75); Platelet Count 140 X10^3/uL (150-400); Red Blood Cell Count 3.06 X10^6/uL (4.0-5.2); Red Cell Distribution Width 12.5 % (11.6-14.8); White Blood Cell Count 13.2 X10^3/uL (4.5-11.0)
[2018-05-29 06:14] LABS: BUN Creatinine Ratio 18.3 (6-22); Blood Urea Nitrogen 11 mg/dL (7-17); Carbon Dioxide 22 mmol/L (22-32); Chloride 102 mmol/L (98-107); Estimated Glomerular Filt Rate > 60.0 mL/min (>60); Glucose 110 mg/dL (80-110); HEMOLYSIS < 15 (0-50); Potassium 3.8 mmol/L (3.4-5.1); Sodium 131 mmol/L (137-145)
--- NOTE | 2018-05-29 08:59 | PM.PN.1 ---
Subjective Date Patient Seen: 05/29/18 Time Patient Seen: 08:59 Interval history: Feels pretty rotten. Complaining of pain in the sternum area as well as low back. Next difficult to move especially to stand. Has had a hard time urinating feeling a bit nauseous, and generally frustrated by the events. 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 Reviewed current status. Exam Vital Signs (past 8 hours): - 05/29/18 01:24 05/29/18 01:37 05/29/18 05:59 Temperature 98.0 F 97.9 F Pulse Rate 81 83 Respiratory Rate 19 18 Blood Pressure 113/62 124/61 Pulse Oximetry 97 100 97 05/29/18 08:15 Temperature 97.7 F Pulse Rate 86 Respiratory Rate 20 Blood Pressure 109/62 Pulse Oximetry 93 Oxygen Delivery Method Nasal Cannula Oxygen Flow Rate 4 Narrative Exam Narrative: Awake and alert appropriate, mild distress. HEENT unremarkable neck is benign chest is clear heart regular without murmur, somewhat tender over the sternum extremities benign neurologically benign Objective Labs Result Diagrams: 05/29/18 05:40 05/29/18 05:40 Labs: Laboratory Results - last 24 hr 05/28/18 05/28/18 05/29/18 08:17 08:17 01:20 WBC RBC Hgb Hct MCV MCH MCHC RDW Plt Count Neut % (Auto) Lymph % (Auto) [place] % (Auto) Eos % (Auto) Baso % (Auto) Neut # (Auto) Sodium Potassium Chloride Carbon Dioxide BUN Creatinine Estimated GFR BUN/Creatinine Ratio Glucose Calcium Total Bilirubin 0.7 Conjugated Bilirubin 0.0 Unconjugated Bilirubin 0.6 AST 60 H ALT 40 Alkaline Phosphatase 64 Total Protein 5.8 L Albumin 3.3 L Globulin 2.5 Albumin/Globulin Ratio 1.3 Amylase 61 Urine Color Dark yellow Urine Appearance Clear Urine pH 6.0 Ur Specific [place] 1.020 Urine Protein Trace H Urine Glucose (UA) Negative Urine Ketones Trace H Urine Occult Blood Trace-intact Urine Nitrate Negative Urine Bilirubin Negative Urine Urobilinogen 0.2 Ur Leukocyte Esterase 1+ H Urine RBC None seen Urine WBC 10-30/hpf H Ur Squamous Epith Cells 0-1 /hpf Amorphous Sediment 1+ Urine Bacteria Few (2-10) H Hyaline Casts 0-1/lpf Urine Mucus 1+ H Ur Culture Indicated? Specimen cultured Micro UA Comment Not Reportable 05/29/18 05/29/18 05:40 05:40 WBC 13.2 H RBC 3.06 L Hgb 10.0 L Hct 29.0 L MCV 94.9 MCH 32.6 MCHC 34.4 RDW 12.5 Plt Count 140 L Neut % (Auto) 86.8 H Lymph % (Auto) 8.0 L [place] % (Auto) 4.7 Eos % (Auto) 0.2 L Baso % (Auto) 0.3 Neut # (Auto) 39725 H Sodium 131 L Potassium 3.8 Chloride 102 Carbon Dioxide 22 BUN 11 Creatinine 0.60 Estimated GFR > 60.0 BUN/Creatinine Ratio 18.3 Glucose 110 Calcium 8.0 L Total Bilirubin Conjugated Bilirubin Unconjugated Bilirubin AST ALT Alkaline Phosphatase Total Protein Albumin Globulin Albumin/Globulin Ratio Amylase Urine Color Urine Appearance Urine pH Ur Specific [place] Urine Protein Urine Glucose (UA) Urine Ketones Urine Occult Blood Urine Nitrate Urine Bilirubin Urine Urobilinogen Ur Leukocyte Esterase Urine RBC Urine WBC Ur Squamous Epith Cells Amorphous Sediment Urine Bacteria Hyaline Casts Urine Mucus Ur Culture Indicated? Micro UA Comment Assessment & Plan (1) Compression fracture of L2 lumbar vertebra: Problem details: still moderate pain and disability. Will start calcitonin to see if that can expedite improvement in pain continue same otherwise. Qualifiers: Encounter type: initial encounter Fracture healing: Fracture type: closed Qualified Code(s): S32.020A - Wedge compression fracture of second lumbar vertebra, initial encounter for closed fracture Current visit: Yes Status: Acute (2) Sternum pain: Problem details: More bruising issue after a fall contributing to disability continue same for now. Current visit: Yes Status: Acute (3) Urinary tract infection: Problem details: Based on initial findings of UA, cultures pending. Will start antibiotics. Current visit: Yes Status: Acute (4) Depression, major, recurrent, moderate: Problem details: Longstanding chronic remains on usual medications. Current visit: Yes Status: Chronic (5) Osteopenia after menopause: Problem details: Based on prior DEXA, certainly contributed to items above. Current visit: Yes Status: Chronic (6) Anemia, chronic disease: Problem details: actually maybe more of acute, perhaps more related to dilution with recent IV hydration. Current visit: Yes Status: Acute (7) Hyponatremia: Problem details: Has been stable no evident or concerning underlying cause is Evident. Current visit: Yes Status: Acute Plan: Assessment/Plan Narrative: Will start oral antibiotics for the UTI, calcitonin to help with the compression fracture pain follow labs. Discussed PT with the patient today she is not quite ready for that so will consider that as possible. Likely to continue to require hospitalization for at least another 1-2 days. Quality VTE Deep Vein Thrombosis/Pulmonary Embolism Present on Admission: No
[2018-05-29] MEDS: CITALOPRAM 20 MG TABLET PO (09:18)
[2018-05-29] MEDS: PANTOPRAZOLE 40 MG VIAL IV (09:22)
[2018-05-29] MEDS: ENOXAPARIN 40 MG/0.4 ML SYRINGE SUBCUT (09:22)
[2018-05-29] MEDS: HYDROMORPHONE 2 MG TABLET PO ×3 (10:20→21:04)
[2018-05-29] MEDS: TRIMETH/SULFA 160/800 (DS) TABLET 1 TAB PO ×2 (10:21→21:04)
--- NOTE | 2018-05-29 14:00 | PT.IPTN ---
Current Diagnoses Anemia in other chronic diseases classified elsewhere (05/28/18) Hypo-osmolality and hyponatremia (05/28/18) Major depressive disorder, recurrent, moderate (05/28/18) Age-related osteoporosis without current pathological fracture (05/28/18) Urinary tract infection, site not specified (05/28/18) Other chest pain (05/28/18) Wedge compression fracture of second lumbar vertebra, initial encounter for closed fracture (05/28/18) Physical Therapy Treatment Note M2 PT-IP Current Condition Start: 05/28/18 11:16 Freq: NEEDED Status: Active Protocol: Document 05/28/18 15:35 AB (Rec: 05/28/18 16:29 AB [id number]) Physical Therapy Current Condition Current Condition Evaluation Date 05/28/18 Treatment Diagnosis L2 compression fx; difficulty in walking Onset Date 05/28/18 Precautions Lumbar Precautions Log Roll No Twisting Limit Bending Lifting Restriction of 10 lbs Brace TLSO brace: nurse got a verbal order from pt's doctor that TLSO on when out of bed but can be when in bed. Other Precautions BP M3 PT-IP Subjective Start: 05/28/18 11:16 Freq: NEEDED Status: Active Protocol: Document 05/29/18 13:59 LJ (Rec: 05/29/18 13:59 LJ [email or web address]) Subjective Physical Therapy Visit Type Type Patient Refusal Notes Pt reports pain is too high and she is too weak to participate in therapy at this time. M4 PT-IP Mobility and Gait Start: 05/28/18 11:16 Freq: NEEDED Status: Active Protocol: Document 05/28/18 15:35 AB (Rec: 05/28/18 16:28 AB [id number]) PT-Bed Mobility Assessment Supine to Sit Supine to Sit Standby Assistance 1 Person Assistance Sit to Supine Sit to Supine Minimal Assistance 1 Person Assistance Scooting Scooting to Edge of Bed Standby Assistance PT-Transfer Assessment Sit to and From Stand Sit to and from Stand Maximum Assistance 1 Person Assistance Equipment Transfer Assistive Device Gait Belt Front Wheeled Walker Orthotic/Prosthetic Devices or Brace: No Comments Mobility Comments BP in supine: 101/54 pt completed bed mobility supint to sit SBA and cues. pt able to sit on EOB CGA. BP: 102/59 . fitted TLSO brace on pt and pt stated that her back feels better already. pt completed sit to stand max A and max cues and pt tolerated ~ 10 sec of standing and then stated that she has to sit down due to c/o dizziness. pt sat back down but after few seconds stated that she has to lay back down. required min A to elevate LE up in bed during sit to supine. positioned pt in bed. BP in supine: 96/63. pt requested to leave TLSO on her in bed. Gait Assessment Comments Gait Comments unable at this time M5 PT-IP Objective Assessments Start: 05/28/18 11:16 Freq: NEEDED Status: Active Protocol: Document 05/28/18 10:45 AB (Rec: 05/28/18 11:33 AB [id number]) Orientation Orientation/Cognition Level of Alertness Alert Orientation Name Age Birthday Month Date Year Day of Week Place Situation Safety Awareness Understands Safety Issues Gross Range of Motion Lower Extremity ROM Assessment Within Functional Limits Strength Lower Extremity Strength Assessment Within Functional Limits Sensation Assessment Sensation Gross Sensation WNL M6 PT-IP Treatment Start: 05/28/18 11:16 Freq: NEEDED Status: Active Protocol: Document 05/28/18 15:35 AB (Rec: 05/28/18 16:28 AB [id number]) Physical Therapy Treatment Education Education Provided Precautions Safety Equipment Issued Equipment Type and Company TLSO brace from [employer]. M7 PT-IP Assessment and Plan Start: 05/28/18 11:16 Freq: NEEDED Status: Active Protocol: Document 05/28/18 15:35 AB (Rec: 05/28/18 16:28 AB [id number]) PT Summary Assessment and Plan Potential Rehabilitation Potential Fair Summary Impairments Pain ROM Strength Balance Coordination Sensation Tone Cognition Bed Mobility Transfers Gait Activity Tolerance Progress Towards Goals Slow Progress due to Medical Issues Slow Progress due to Activity Tolerance Assessment Summary pt continues not to tolerate much activity this afternoon but able to stand up requiring max A and cues. d/c plan depending on progress and assistance available at home. will continue to assess. Goals Bed Mobility Goal Independent Transfer Goal Standby Assistance Front Wheeled Walker Gait Goal Standby Assistance Front Wheel Walker Gait Distance 100 Other Goals STG: to improve bed mobility, transfers to SBA and ambulation using FWW SBA ~ 75 ft LTG: to improve ambulation using least restrictive device ~ 100 ft SBA Days to Meet Goals 5 Frequency of Treatment Frequency Of Treatment Twice a Day Treatment Plan Physical Therapy Treatment Plan Bed Mobility Training Transfer Training Gait Training Therapeutic Exercise Balance Retraining Post Op Education Discharge Planning Hot or Cold Pack Neuromuscular Re-ed Coordination Retraining Manual Therapy Recommendations To Nursing Amount of Assist Needed PT/OT Assist Only Discharge Recommendations PT Discharge Recommendations Home with 24/ Assist Home Health SNF Rehab Other Discharge Recommendations needs further assessment but may require SNF
--- NOTE | 2018-05-29 15:11 | OT.IP.TRT ---
Current Diagnoses Anemia in other chronic diseases classified elsewhere (05/28/18) Hypo-osmolality and hyponatremia (05/28/18) Major depressive disorder, recurrent, moderate (05/28/18) Age-related osteoporosis without current pathological fracture (05/28/18) Urinary tract infection, site not specified (05/28/18) Other chest pain (05/28/18) Wedge compression fracture of second lumbar vertebra, initial encounter for closed fracture (05/28/18) Occupational Therapy Treatment Note M3 OT- IP Subjective and Pain Start: 05/29/18 15:09 Freq: Status: Active Protocol: Document 05/29/18 15:09 [facility] (Rec: 05/29/18 15:11 [facility] [email or web address]) OT- Subjective Occupational Therapy Visit Type Type Patient Refusal Notes Pt not feeling well, still having pain in her back, and not wanting to get up for OT eval at this time. Therefore, to attempt OT eval again tomorrow.
--- NOTE | 2018-05-29 15:30 | PC.NURSE ---
Day Shift- Pt A&OX4, arousable with verbal stimulation. Weaned from 4L NC to 2L NC this AM, see flowsheet. AE clear and diminished to bases this AM. with coarseness to RLL. In afternoon, pt O2 sat 84% on 2L NC, deep breathing and coughing encouraged. O2 increased to 3L NC, Sat increased to 87%. Humidifier placed on O2. Also increased to 4L NC and after instructing pt to use incentive spirometer, O2 sat increased to 93% on 4L. Pt repositioned in bed frequently from side to side using Ruth bed and supported with pillows. Pt OOB with PT/OT only. Pt voided 550mls this AM on bedpan. Upon reassessment at 1430, pt denied urge to void.
--- NOTE | 2018-05-29 17:09 | PT.IPTN ---
Current Diagnoses Anemia in other chronic diseases classified elsewhere (05/29/18) Hypo-osmolality and hyponatremia (05/29/18) Major depressive disorder, recurrent, moderate (05/29/18) Age-related osteoporosis without current pathological fracture (05/29/18) Urinary tract infection, site not specified (05/29/18) Other chest pain (05/29/18) Wedge compression fracture of second lumbar vertebra, initial encounter for closed fracture (05/29/18) Physical Therapy Treatment Note M2 PT-IP Current Condition Start: 05/28/18 11:16 Freq: NEEDED Status: Active Protocol: Document 05/28/18 15:35 AB (Rec: 05/28/18 16:29 AB [id number]) Physical Therapy Current Condition Current Condition Evaluation Date 05/28/18 Treatment Diagnosis L2 compression fx; difficulty in walking Onset Date 05/28/18 Precautions Lumbar Precautions Log Roll No Twisting Limit Bending Lifting Restriction of 10 lbs Brace TLSO brace: nurse got a verbal order from pt's doctor that TLSO on when out of bed but can be when in bed. Other Precautions BP M3 PT-IP Subjective Start: 05/28/18 11:16 Freq: NEEDED Status: Active Protocol: Document 05/29/18 16:02 LJ (Rec: 05/29/18 16:58 LJ [email or web address]) Subjective Physical Therapy Visit Type Type Treatment Note Visit Start Time 16:02 Visit Stop Time 16:25 Total Visit Minutes 23 Physical Therapy Visit Comments Patient Comments Pt agrees to attempt therapy. States pain has decreased since the morning Patient Goals go home with assist x 1/day from outside caregiving source and occasional housekeeping. Therapy Pain Assessment Pain When Pain Assessed At Rest Pain Present Pain Present Pain Reported M4 PT-IP Mobility and Gait Start: 05/28/18 11:16 Freq: NEEDED Status: Active Protocol: Document 05/29/18 16:58 LJ (Rec: 05/29/18 17:08 LJ [email or web address]) PT-Bed Mobility Assessment Rolling Type of Rolling Log Rolling Level of Assist Minimal Assistance Moderate Assistance 1 Person Assistance Supine to Sit Supine to Sit Minimal Assistance Moderate Assistance 1 Person Assistance Bedrails Sit to Supine Sit to Supine Minimal Assistance Moderate Assistance 1 Person Assistance Bedrails Scooting Scooting to Edge of Bed Minimal Assistance PT-Transfer Assessment Comments Mobility Comments Pt requires min-mod assist using bedrails and therapist assist for bed mobility d/t fatigue, weakness, and pain. Mobility causes O2 sat to decrease to 85 with several minutes required to return to over 90. Pt woozy at edge of bed after sitting less than 2 min with therapist CGA. Gait Assessment Comments Gait Comments unable M5 PT-IP Objective Assessments Start: 05/28/18 11:16 Freq: NEEDED Status: Active Protocol: Document 05/28/18 10:45 AB (Rec: 05/28/18 11:33 AB [id number]) Orientation Orientation/Cognition Level of Alertness Alert Orientation Name Age Birthday Month Date Year Day of Week Place Situation Safety Awareness Understands Safety Issues Gross Range of Motion Lower Extremity ROM Assessment Within Functional Limits Strength Lower Extremity Strength Assessment Within Functional Limits Sensation Assessment Sensation Gross Sensation WNL M6 PT-IP Treatment Start: 05/28/18 11:16 Freq: NEEDED Status: Active Protocol: Document 05/29/18 16:02 TAPAN (Rec: 05/29/18 16:58 LJ [email or web address]) Physical Therapy Treatment Exercises Exercises Ankle Pumps Gluteal Sets Heel Slides Education Education Provided Safety Other Treatments Other Treatment Performed Log roll and supine<>sit on side of bed. Scooting to head of bed. All mobility required Mod assist using bed rails and therapist assist. M7 PT-IP Assessment and Plan Start: 05/28/18 11:16 Freq: NEEDED Status: Active Protocol: Document 05/29/18 16:02 TAPAN (Rec: 05/29/18 16:58 LJ [email or web address]) PT Summary Assessment and Plan Summary Impairments Pain ROM Strength Balance Coordination Sensation Tone Bed Mobility Transfers Gait Activity Tolerance Progress Towards Goals Slow Progress due to Medical Issues Slow Progress due to Activity Tolerance Assessment Summary Pt requires Mod assist of bed rails, cueing, and therapist assist to logroll and supine<> sit on side of bed. O2 sat drops to 84 with slight activity sitting on side of bed for less than 2 min. O2 sat anayeli to 94 after 2 min of diaphragmatic breathing in reclined position. Pt reports feeling woozy and dizzy and unable to maintain balance at side of bed. Goals Bed Mobility Goal Independent Transfer Goal Standby Assistance Front Wheeled Walker Gait Goal Standby Assistance Front Wheel Walker Gait Distance 100 Other Goals STG: to improve bed mobility, transfers to SBA and ambulation using FWW SBA ~ 75 ft LTG: to improve ambulation using least restrictive device ~ 100 ft SBA Days to Meet Goals 5 Frequency of Treatment Frequency Of Treatment Twice a Day Treatment Plan Physical Therapy Treatment Plan Bed Mobility Training Transfer Training Gait Training Therapeutic Exercise Balance Retraining Post Op Education Discharge Planning Hot or Cold Pack Neuromuscular Re-ed Coordination Retraining Manual Therapy Discharge Recommendations Other Discharge Recommendations Pt would benefit from SNF or / home health care
[2018-05-29] MEDS: SODIUM CHLORIDE 0.9% 1,000 ML 42 ML IV (21:04)
[2018-05-30] VITALS (21 sets, daily range): BP systolic 77–130; BP diastolic 44–66; PULSE 65–87; RESP 16–24; TEMP 36.3–36.9; O2SAT 85–98
--- NOTE | 2018-05-30 02:52 | PC.NURSE ---
Addendum entered by Miranda Elder R.N. 05/30/18 05:54: Had pain medication at 0434 for complaint of 4/10 back pain and states pain is much better now at 1/10. Xray here to do portable chest xray. O2 sat on 3L remains at 93%. BP 116/60 Original Note: Patient has been asleep but now awakened for assessment. Is oriented except to day of month. Breath sounds with inspiratory crackles bilateral lower lobes. O2 at 4L/min per NC with sat of 95% while asleep so titrated down to 3L and will continue to monitor with continuous pulse oximeter. Is noted to mouth breathe. HRR. Denies nausea. BT present and abdomen is soft. Noted abrasion on right side of abdomen; patient states from injection she received yesterday. Has not yet voided this shift but denies any dysuria and has been using bedpan to void previously. Needing assistance to reposition as has generalized weakness and seems to be fatigued. Denies any current pain stating just uncomfortable which was relieved with repositioning. Fall risk score is high and bed alarm is activated.
[2018-05-30] MEDS: HYDROMORPHONE 2 MG TABLET PO ×4 (04:34→23:26)
--- NOTE | 2018-05-30 05:00 | DI.RAD.S_ITS ---
PROCEDURE: XR CHEST 1V INDICATIONS: oxygen saturation down to 89% , crackles heard in lungs TECHNIQUE: One view of the chest was acquired. COMPARISON: [facility], CT, CT ABDOMEN PELVIS W CON, 05/27/2018, 18:40. [facility], CR, CHEST 1 VIEW, 06/21/2013, 9:04. [facility], CR, CHEST 1 VIEW, 07/26/2014, 0:23. [facility], CR, XR CHEST 1V, 05/27/2018, 18:39. FINDINGS: Surgical changes and devices: Surgical clips in the right axilla . Right mastectomy. Lungs and pleura: Bilateral interstitial infiltrates. Suspect trace bilateral effusions. No pneumothorax. Mediastinum: Mediastinal contours appear normal. Heart size is normal. Bones and chest wall: No suspicious bony lesions. Overlying soft tissues appear unremarkable. IMPRESSION: Bilateral interstitial infiltrates may be secondary to pulmonary edema or bilateral pneumonia. Dictated by: Obed Greer M.D. on 05/30/2018 at 7:57 Approved by: Obed Greer M.D. on 05/30/2018 at 8:03
[2018-05-30 06:21] LABS: Add Manual Diff / Slide Review NO; Basophils Percent Auto 0.8 % (0-2); Eosinophils Percent Auto 0.9 % (2-4); Hematocrit 26.9 % (36-46); Hemoglobin 9.3 g/dL (12.0-16.0); Lymphocytes Percent Auto 8.3 % (25-40); Mean Corpuscular HGB Conc 34.6 % (30-36); Mean Corpuscular Hemoglobin 32.5 PG (26-34); Monocytes Percent Auto 7.4 % (3-14); Neutrophils Absolute Auto 8000 /uL (3000-5900); Neutrophils Percent Auto 82.6 % (50-75); Platelet Count 116 X10^3/uL (150-400); Red Blood Cell Count 2.86 X10^6/uL (4.0-5.2); Red Cell Distribution Width 12.4 % (11.6-14.8); White Blood Cell Count 9.7 X10^3/uL (4.5-11.0)
[2018-05-30 06:34] LABS: Blood Urea Nitrogen 7 mg/dL (7-17); Calcium 7.8 mg/dL (8.4-10.2); Carbon Dioxide 24 mmol/L (22-32); Chloride 99 mmol/L (98-107); Estimated Glomerular Filt Rate > 60.0 mL/min (>60); Glucose 107 mg/dL (80-110); HEMOLYSIS < 15 (0-50); Potassium 3.7 mmol/L (3.4-5.1); Sodium 128 mmol/L (137-145)
[2018-05-30] MEDS: CALCITONIN,SALMON, NASAL SPRAY 1 SPRAYS NASAL (09:06)
[2018-05-30] MEDS: PANTOPRAZOLE 40 MG VIAL IV (09:06)
[2018-05-30] MEDS: CITALOPRAM 20 MG TABLET PO (09:07)
[2018-05-30] MEDS: TRIMETH/SULFA 160/800 (DS) TABLET 1 TAB PO (09:07)
[2018-05-30] MEDS: ENOXAPARIN 40 MG/0.4 ML SYRINGE SUBCUT (09:09)
--- NOTE | 2018-05-30 10:08 | P.PN_ITS ---
Subjective Date Patient Seen: 05/30/18 Time Patient Seen: 10:02 Interval history: Still in fair pain, hurts to move.. Did not feel like she got much rest last night. Has had an urge to void without much out. Upon review it we notice some persistent hypoxia since admission without clear cause , as chest x-ray was negative on admission. And no clear evidence of CHF. But there has been some hydration/diuresis along the way. Exam Vital Signs (past 8 hours): - 05/30/18 05:50 05/30/18 06:10 05/30/18 07:20 Temperature 98.3 F 97.9 F Pulse Rate 80 87 Respiratory Rate 18 16 Blood Pressure 116/60 96/50 L Pulse Oximetry 93 93 92 05/30/18 07:40 05/30/18 07:49 05/30/18 09:03 Temperature Pulse Rate Respiratory Rate Blood Pressure Pulse Oximetry 93 85 L 95 Oxygen Delivery Method Nasal Cannula Oxygen Flow Rate 3 Narrative Exam Narrative: Sitting up in bed, somewhat ill-appearing in mild distress. HEENT unremarkable neck benign without JVD, chest may have a few crackles at the bases heart regular without murmur abdomen extremities benign still some sternal tenderness and mid back tenderness. Objective Labs Result Diagrams: 05/30/18 06:12 05/30/18 06:12 Labs: Laboratory Results - last 24 hr 05/30/18 05/30/18 05/30/18 06:12 06:12 06:21 WBC 9.7 RBC 2.86 L Hgb 9.3 L Hct 26.9 L MCV 94.0 MCH 32.5 MCHC 34.6 RDW 12.4 Plt Count 116 L Neut % (Auto) 82.6 H Lymph % (Auto) 8.3 L [place] % (Auto) 7.4 Eos % (Auto) 0.9 L Baso % (Auto) 0.8 Neut # (Auto) 8000 H Sodium 128 L Potassium 3.7 Chloride 99 Carbon Dioxide 24 BUN 7 Creatinine 0.50 L Estimated GFR > 60.0 BUN/Creatinine Ratio 14.0 Glucose 107 Calcium 7.8 L B-Natriuretic Peptide 333.0 H Assessment & Plan (1) Compression fracture of L2 lumbar vertebra: Problem details: still moderate pain and disability. Have started calcitonin, no clear benefit of. Still some benefit from narcotic. Qualifiers: Encounter type: initial encounter Fracture healing: Fracture type: closed Qualified Code(s): S32.020A - Wedge compression fracture of second lumbar vertebra, initial encounter for closed fracture Current visit: Yes Status: Acute (2) Sternum pain: Problem details: More bruising issue after a fall contributing to disability continue same for now. Current visit: Yes Status: Acute (3) Urinary tract infection: Problem details: Culture suggests mixed ramandeep. Will stop antibiotic. Current visit: Yes Status: Acute (4) Pneumonia, community acquired: Problem details: New finding but likely present at admission as white blood count was elevated, although chest x-ray was negative she was also clearly volume depleted which could give us a false negative. Has remained hypoxic, and no clear evidence of other causes. Will start to antibiotics IV and follow Current visit: Yes Status: Acute (5) Acute respiratory failure: Problem details: Likely due to last item, however there could also be a component of splinting or caution due to fracture pain, continues to require O2 supplementation. Current visit: Yes Status: Acute (6) Pathological fracture due to age-related osteoporosis: Problem details: I believe she has a previously diagnosed osteoporosis which would contribute to the 1st item. Current visit: Yes Status: Acute (7) Hyponatremia: Problem details: Persists, may be a component of SIADH from the pneumonia. Will continue to follow. Current visit: Yes Status: Acute (8) Anemia, chronic disease: Problem details: Somewhat worse with time presumably due to dilution, no evidence of blood loss or other underlying cause. Current visit: Yes Status: Acute Plan: Assessment/Plan Narrative: Will add to a IV antibiotics, stop the oral antibiotic, continue to follow labs and other medications. Quality VTE Deep Vein Thrombosis/Pulmonary Embolism Present on Admission: No
[2018-05-30] MEDS: CEFTRIAXONE 1 GM/50 ML FROZ.PIGGY IV ×2 (10:27→21:30)
[2018-05-30] MEDS: AZITHROMYCIN 500 MG in DEXTROSE 5% IN WATER 250 ML IV (11:13)
--- NOTE | 2018-05-30 11:20 | PT.IPTN ---
Current Diagnoses Anemia in other chronic diseases classified elsewhere (05/29/18) Hypo-osmolality and hyponatremia (05/29/18) Major depressive disorder, recurrent, moderate (05/29/18) Pneumonia, unspecified organism (05/29/18) Acute respiratory failure, unspecified whether with hypoxia or hypercapnia (05/29/18) Age-related osteoporosis with current pathological fracture, unspecified site, initial encounter for fracture (05/29/18) Age-related osteoporosis without current pathological fracture (05/29/18) Urinary tract infection, site not specified (05/29/18) Other chest pain (05/29/18) Wedge compression fracture of second lumbar vertebra, initial encounter for closed fracture (05/29/18) Physical Therapy Treatment Note M2 PT-IP Current Condition Start: 05/28/18 11:16 Freq: NEEDED Status: Active Protocol: Document 05/28/18 15:35 AB (Rec: 05/28/18 16:29 AB [id number]) Physical Therapy Current Condition Current Condition Evaluation Date 05/28/18 Treatment Diagnosis L2 compression fx; difficulty in walking Onset Date 05/28/18 Precautions Lumbar Precautions Log Roll No Twisting Limit Bending Lifting Restriction of 10 lbs Brace TLSO brace: nurse got a verbal order from pt's doctor that TLSO on when out of bed but can be when in bed. Other Precautions BP M3 PT-IP Subjective Start: 05/28/18 11:16 Freq: NEEDED Status: Active Protocol: Document 05/30/18 11:20 GGD (Rec: 05/30/18 12:32 GGD [id number]) Subjective Physical Therapy Visit Type Type Treatment Note Visit Start Time 10:55 Visit Stop Time 11:20 Total Visit Minutes 25 Number of CAMPAIGN ASSISTANT Visits 2 Physical Therapy Visit Comments Patient Comments Pt states she willing to work with therapy. Therapy Pain Assessment Pain When Pain Assessed At Rest Pain Present Pain Present Pain Reported M4 PT-IP Mobility and Gait Start: 05/28/18 11:16 Freq: NEEDED Status: Active Protocol: Document 05/30/18 11:20 GGD (Rec: 05/30/18 12:32 GGD [id number]) PT-Bed Mobility Assessment Rolling Type of Rolling Log Rolling Level of Assist Minimal Assistance Moderate Assistance 1 Person Assistance Supine to Sit Supine to Sit Moderate Assistance 1 Person Assistance Bedrails Scooting Scooting to Edge of Bed Minimal Assistance PT-Transfer Assessment Sit to and From Stand Sit to and from Stand Minimal Assistance 1 Person Assistance Use of Upper Extremities Equipment Transfer Assistive Device Gait Belt Front Wheeled Walker Orthotic/Prosthetic Devices or Brace: Yes Transfers Transfer Destination Chair Transfer Technique Stand Step Pivot Transfer Ability Level of Assist Minimal Assistance 1 Person Assistance Use of Upper Extremities Comments Mobility Comments Pt had decrease in BP to 85/47 after activity. O2 93-99 at 3 L. M5 PT-IP Objective Assessments Start: 05/28/18 11:16 Freq: NEEDED Status: Active Protocol: Document 05/28/18 10:45 AB (Rec: 05/28/18 11:33 AB [id number]) Orientation Orientation/Cognition Level of Alertness Alert Orientation Name Age Birthday Month Date Year Day of Week Place Situation Safety Awareness Understands Safety Issues Gross Range of Motion Lower Extremity ROM Assessment Within Functional Limits Strength Lower Extremity Strength Assessment Within Functional Limits Sensation Assessment Sensation Gross Sensation WNL M6 PT-IP Treatment Start: 05/28/18 11:16 Freq: NEEDED Status: Active Protocol: Document 05/30/18 11:20 GGD (Rec: 05/30/18 12:32 GGD [id number]) Physical Therapy Treatment Education Education Provided Precautions Safety M7 PT-IP Assessment and Plan Start: 05/28/18 11:16 Freq: NEEDED Status: Active Protocol: Document 05/30/18 11:20 GGD (Rec: 05/30/18 12:32 GGD [id number]) PT Summary Assessment and Plan Summary Assessment Summary Pt progressing slowly. She needs assist with all mobility . She was able to transfer with FWW. She would benefit from SNF due to level assist for mobility. Frequency of Treatment Frequency Of Treatment Twice a Day Treatment Plan Physical Therapy Treatment Plan Bed Mobility Training Transfer Training Gait Training Therapeutic Exercise Balance Retraining Post Op Education Discharge Planning Hot or Cold Pack Neuromuscular Re-ed Coordination Retraining Manual Therapy Recommendations To Nursing Amount of Assist Needed 2 Person Assist Discharge Recommendations PT Discharge Recommendations Home with Assistance SNF Rehab Other Discharge Recommendations Pt woult like to D/C home to son's house.
[2018-05-30] MEDS: SODIUM CHLORIDE 0.9% 250 ML 1000 ML IV (12:27)
--- NOTE | 2018-05-30 12:44 | OT.IP.EVAL ---
Current Diagnoses Anemia in other chronic diseases classified elsewhere (05/29/18) Hypo-osmolality and hyponatremia (05/29/18) Major depressive disorder, recurrent, moderate (05/29/18) Pneumonia, unspecified organism (05/29/18) Acute respiratory failure, unspecified whether with hypoxia or hypercapnia (05/29/18) Age-related osteoporosis with current pathological fracture, unspecified site, initial encounter for fracture (05/29/18) Age-related osteoporosis without current pathological fracture (05/29/18) Urinary tract infection, site not specified (05/29/18) Other chest pain (05/29/18) Wedge compression fracture of second lumbar vertebra, initial encounter for closed fracture (05/29/18) Past Medical History (Last Reviewed 03/25/18 @ 14:24 by Jeremie De Leon MD) Breast cancer in female (Acute) Depression (Acute) Surgical History (Last Reviewed 03/25/18 @ 14:24 by Jeremie De Leon MD) History of cholecystectomy (Acute) Status post mastectomy (Acute) Occupational Therapy Inpatient Evaluation/Re-Eval M1 PT/OT-IP Prior Functional Status Start: 05/28/18 11:16 Freq: NEEDED Status: Active Protocol: Document 05/28/18 10:45 AB (Rec: 05/28/18 11:33 AB [email or web address]) Medical Review Prior Functional Status Medical History Reviewed Yes Communication able to make needs known Mobility and Gait stated that she is independent with all mobilities and ambulation without AD Social History Household Members spouse family Living Arrangements House Number of Floors (Floors) Two Floors Number of Stairs To Enter/Railing? pt stays on main level; pt has no steps to enter Home Environment Standard Height Toilet High Toilet Walk in Shower Home Equipment Front Wheel Walker Straight Cane Raised Toilet Seat w/Armrests Shower Seat with Backrest Hand Held Shower Grab Bars In Shower Employment Status Retired Additional Social History Comment pt lives with spouse and sister; stated that her sister will be able to assist her at home M1 PT/OT-IP Prior Functional Status Start: 05/29/18 15:09 Freq: NEEDED Status: Active Protocol: Document 05/30/18 12:19 CCC (Rec: 05/30/18 12:41 CCC [id number]) Medical Review Prior Functional Status Medical History Reviewed Yes Diet/Fluid Consistency Regular Thin Liquids Communication able to make needs known Mobility and Gait stated that she is independent with all mobilities and ambulation without AD Activities of Daily Living and IADL's Completely independent. Social History Household Members spouse family Living Arrangements House Number of Floors (Floors) Two Floors Number of Stairs To Enter/Railing? pt stays on main level; pt has no steps to enter Home Environment Standard Height Toilet High Toilet Walk in Shower Home Equipment Front Wheel Walker Straight Cane Raised Toilet Seat w/Armrests Shower Seat with Backrest Hand Held Shower Grab Bars In Shower Employment Status Retired Additional Social History Comment pt lives with spouse and sister; stated that her sister will be able to assist her at home M2 OT-IP Current Condition Start: 05/29/18 15:09 Freq: Status: Active Protocol: Document 05/30/18 12:19 [facility] (Rec: 05/30/18 12:41 [facility] [email or web address]) Occupational Therapy Current Condition Current Condition Evaluation Date 05/30/18 Treatment Diagnosis L2 compression fx Diagnosis Onset Date 05/28/18 Post Operative Precautions Lumbar Precautions Log Roll No Twisting Limit Bending Lifting Restriction of 10 lbs Other Precautions BP, to wear TLSO when out of bed M3 OT- IP Subjective and Pain Start: 05/29/18 15:09 Freq: Status: Active Protocol: Document 05/30/18 12:19 [facility] (Rec: 05/30/18 12:41 [facility] [email or web address]) OT- Subjective Occupational Therapy Visit Type Type Initial Evaluation Visit Start Time 11:42 Visit Stop Time 11:52 Total Visit Minutes 10 Notes Pt just finished with PNEUMATIC PRESS HAND and able to sit up for 25 minutes and wanting to get back to bed . Occupational Therapy Visit Comments Patient Comments Pt wanting to get back to bed. OT Pain Assessment Pain When Pain Assessed At Rest Pain Present Pain Present Pain Reported M6 OT- IP Functional Cognition Start: 05/29/18 15:09 Freq: Status: Active Protocol: Document 05/30/18 12:19 [facility] (Rec: 05/30/18 12:41 [facility] [email or web address]) Cognitive Factors Limiting Selfcare Function Cognitive Ability Level of Alertness Alert Patient Orientation Name Place Situation Attention Span Ability Capable of Focused Attention Capable of Sustained Attention Ability to Follow Commands Able to Follow Multi-Step Commands Memory Description No Deficits Noted Cognitive Comments Cognitive Assessment Comments Pt able to follow commands and cooperative. OT- Vision and Hearing OT- Hearing Assessment OT- Hearing Assessment WFL M7 OT- IP Mobility and Balance Start: 05/29/18 15:09 Freq: Status: Active Protocol: Document 05/30/18 12:19 [facility] (Rec: 05/30/18 12:41 [facility] [email or web address]) OT- Bed Mobility Assessment Sit to Supine Sit to Supine Assist Maximum Assistance OT-Transfer Assessment Sit to and From Stand Sit to and from Stand Maximum Assistance 1 Person Assistance Transfers Transfer Ability Moderate Assistance 1 Person Assistance Technique Transfer Destination Bed Transfer Technique Stand Step Pivot Devices Transfer Assistive Devices Gait Belt Front Wheeled Walker Comments Mobility Comments Pt MAX A to stand and MODA for transfer with FWW to guide FWW and assist for balance. MAX A to help get trunk and BLE back into the bed, 2nd person for safety and to help manage IV pole. Pt wanting to keep TLSO on in bed due to comfort. Pt's BP 91/41. OT- Balance Assessment Sitting Balance and Reactions Static Sitting Balance Ability Good Dynamic Sitting Balance Ability Fair Standing Balance and Reactions Static Standing Balance Ability Poor Dynamic Standing Balance Ability Poor M9 OT- IP Assessment and Plan Start: 05/29/18 15:09 Freq: Status: Active Protocol: Document 05/30/18 12:19 [facility] (Rec: 05/30/18 12:41 [facility] [email or web address]) OT Summary Assessment and Plan Potential Rehabilitation Potential Good Analytic Complexity at Evaluation Moderate Summary OT Impairments Pain Balance Functional Mobility Grooming Dressing Toileting Bathing Toilet Transfers Shower Transfers Progress Towards Goals Slow Progress due to Pain Slow Progress due to Medical Issues Slow Progress due to Activity Tolerance Assessment Summary Pt MOD complexity and main barrier is pain, only able to tolerate transfer and sitting up to recliner for 25 minutes today, and needing extensive assist for all Adl and functional mobility needs. Pt would benefit from skilled rehab prior to going home as prior pt was independent with all needs. Goals Grooming Goal Standby Assistance Dressing Goal Minimal Assistance Toileting Goal Standby Assistance Bathing Goal Minimal Assistance Toilet Transfer Goal Standby Assistance Shower Transfer Goal Contact Guard Assistance Patient/Caregiver Education Goal Caregiver Independent Assisting Patient Days to Meet Goals 7 Frequency of Treatment Frequency Of Treatment Once a Day Treatment Plan OT Treatment Plan ADL Training Functional Mobility Patient/Family Education Discharge Planning Other Treatment Recommendations and Next Standing at the sink for Treatment Focus grooming and dressing with AED . Discharge Recommendations OT Discharge Recommendations SNF Rehab
[2018-05-30] MEDS: ONDANSETRON 4 MG/2 ML INJ IV (13:23)
--- NOTE | 2018-05-30 13:25 | PC.NURSE ---
Addendum entered by Daria Mcpherson R.N. 05/30/18 13:45: Update given to Dr. Palacios at 1340 regarding pt's movement OOB and decrease in BP with prn bolus given. New order to change IVF to 80mls/hr. Original Note: Day Shift-Pt OOB at 1115 with PT to recliner chair at bedside. TLSO brace on at that time. Pt had increased pain 6/10 from 3/10 to lower back area. Pt stated feeling weak and nauseated around 1135. OT requested to get pt back to bed, using gait belt and walker. Once back to bed at 1145, real estate underwriter monitoring BP and HR. See flowsheet for vital signs. At 1222, BP 77/49 and pulse 74. NS 250ml bolus prn given per SEP . BP at 1250 post bolus infusion was 96/53 pulse 75. Enc po fluids throughout shift. Pt is drinking water and tea. For lunch pt had a few spoonfuls of soup and 2 bites of hard boiled egg, became nauseated. Zofran IV prn given at 1325.
--- NOTE | 2018-05-30 13:50 | PT.IPTN ---
Current Diagnoses Anemia in other chronic diseases classified elsewhere (05/29/18) Hypo-osmolality and hyponatremia (05/29/18) Major depressive disorder, recurrent, moderate (05/29/18) Pneumonia, unspecified organism (05/29/18) Acute respiratory failure, unspecified whether with hypoxia or hypercapnia (05/29/18) Age-related osteoporosis with current pathological fracture, unspecified site, initial encounter for fracture (05/29/18) Age-related osteoporosis without current pathological fracture (05/29/18) Urinary tract infection, site not specified (05/29/18) Other chest pain (05/29/18) Wedge compression fracture of second lumbar vertebra, initial encounter for closed fracture (05/29/18) Physical Therapy Treatment Note M2 PT-IP Current Condition Start: 05/28/18 11:16 Freq: NEEDED Status: Active Protocol: Document 05/28/18 15:35 AB (Rec: 05/28/18 16:29 AB [id number]) Physical Therapy Current Condition Current Condition Evaluation Date 05/28/18 Treatment Diagnosis L2 compression fx; difficulty in walking Onset Date 05/28/18 Precautions Lumbar Precautions Log Roll No Twisting Limit Bending Lifting Restriction of 10 lbs Brace TLSO brace: nurse got a verbal order from pt's doctor that TLSO on when out of bed but can be when in bed. Other Precautions BP M3 PT-IP Subjective Start: 05/28/18 11:16 Freq: NEEDED Status: Active Protocol: Document 05/30/18 13:45 GGD (Rec: 05/30/18 15:35 GGD [id number]) Subjective Physical Therapy Visit Type Notes Hold per RN due to low BP. will see in AM. Frequency Of Treatment Twice a Day Treatment Plan Physical Therapy Treatment Plan Bed Mobility Training Transfer Training Gait Training Therapeutic Exercise Balance Retraining Post Op Education Discharge Planning Hot or Cold Pack Neuromuscular Re-ed Coordination Retraining Manual Therapy Recommendations To Nursing Amount of Assist Needed 2 Person Assist Discharge Recommendations PT Discharge Recommendations Home with Assistance SNF Rehab Other Discharge Recommendations Pt would like to D/C home to son's house.
--- NOTE | 2018-05-30 16:00 | CM.DPC ---
Addendum entered by Alida Hirsch LPN 05/31/18 16:18: Clinical is now faxed to [facility]'s office fax as planned. Note that the full dx and tx plan are still in process. Dr. Palacios's note of today is included in this fax. Original Note: DCP: continued: Case received, EMR reviewed. Plan for home with and sister's care noted. Discussed case this afternoon with OT Lesia. She is recommending snf stay for rehab/recovery before returning home to care and said that pt was open to same. Pt has been fitted with TLSO. Met now with pt in followup to this. She is found lying in bed, eyes closed but able to carry on conversation. She looks very uncomfortable and admits to same. Adequate pain management is clearly a plan in process. Nursing is aware. Pt says she does agree with a short snf stay, has never done this herself but when presented with the SNF choice list she identified [facility] as where she wished to go. (she and her live in [place].). Agreed to put referral in and then to followup with her tomorrow..(done: [facility] accepts and can accept pt 06/01 or >, whenever pt is stable for transition to snf level of care.) Will fax clinical to her tomorrow.. Of Note: Pt admitted under OBS status on 05/28. Admission status was changed to INPT on 05/29/confirmed with UR team.
[2018-05-30] MEDS: SODIUM CHLORIDE 0.9% 1,000 ML 80 ML IV (18:58)
--- NOTE | 2018-05-30 23:57 | PC.NURSE ---
Addendum entered by Miranda Elder R.N. 05/31/18 05:08: Noted patient to be restless and making sighing sounds. When questions admitted pain in sternum/back is 3/10 so medicated with po Dilaudid. Patient had already repositioned self onto right side. O2 sat also noted to be down to 88% so titrated up to 4L/min with sat flucuating 90-92%. Original Note: Addendum entered by Miranda Elder R.N. 05/31/18 02:53: Patient complaining of 5/10 sternal/back pain but too early to repeat po Dilaudid so medicated with IV Dilaudid and assisted to reposition. Original Note: Patient is alert and oriented but with generalized weakness/fatigue. Complains of 3/10 sternal and back pain and was medicated with Dilaudid and repositioned onto left side. Breath sounds more diminished and with scattered inspiratory crackles. On oxygen at 2L/min with sat of 93%. Desats with activity but denies feeling SOB. HRR. Denies nausea. BT present and abdomen is soft. Voiding per bedpan and denies any dysuria. Assisted to reposition q2h as generally not turning herself due to weakness/pain. Fall risk score is high and bed alarm is activated.
[2018-05-31] VITALS (13 sets, daily range): BP systolic 79–131; BP diastolic 50–72; PULSE 75–84; RESP 16–28; TEMP 36.3–36.7; O2SAT 85–99
[2018-05-31] MEDS: HYDROMORPHONE 1 MG INJ 0.5 MG IV ×2 (02:49→21:32)
[2018-05-31] MEDS: HYDROMORPHONE 2 MG TABLET PO ×4 (05:01→19:45)
[2018-05-31 06:35] LABS: Add Manual Diff / Slide Review NO; Eosinophils Percent Auto 1.9 % (2-4); Hematocrit 26.5 % (36-46); Hemoglobin 9.1 g/dL (12.0-16.0); Lymphocytes Percent Auto 12.1 % (25-40); Mean Corpuscular HGB Conc 34.5 % (30-36); Mean Corpuscular Hemoglobin 32.3 PG (26-34); Mean Corpuscular Volume 93.5 fL (80-100); Monocytes Percent Auto 10.5 % (3-14); Neutrophils Absolute Auto 6100 /uL (3000-5900); Neutrophils Percent Auto 74.5 % (50-75); Platelet Count 139 X10^3/uL (150-400); Red Blood Cell Count 2.83 X10^6/uL (4.0-5.2); Red Cell Distribution Width 12.2 % (11.6-14.8); White Blood Cell Count 8.2 X10^3/uL (4.5-11.0)
[2018-05-31 06:39] LABS: BUN Creatinine Ratio 8.3 (6-22); Blood Urea Nitrogen 5 mg/dL (7-17); Calcium 7.8 mg/dL (8.4-10.2); Carbon Dioxide 26 mmol/L (22-32); Chloride 100 mmol/L (98-107); Estimated Glomerular Filt Rate > 60.0 mL/min (>60); Glucose 106 mg/dL (80-110); HEMOLYSIS < 15 (0-50); Potassium 3.7 mmol/L (3.4-5.1); Sodium 133 mmol/L (137-145)
[2018-05-31] MEDS: SODIUM CHLORIDE 0.9% 1,000 ML 80 ML IV ×2 (07:01→21:20)
[2018-05-31] MEDS: CITALOPRAM 20 MG TABLET PO (09:18)
[2018-05-31] MEDS: PANTOPRAZOLE 40 MG VIAL IV (09:18)
[2018-05-31] MEDS: ENOXAPARIN 40 MG/0.4 ML SYRINGE SUBCUT (09:18)
[2018-05-31] MEDS: CALCITONIN,SALMON, NASAL SPRAY 1 SPRAYS NASAL (09:21)
[2018-05-31] MEDS: CEFTRIAXONE 1 GM/50 ML FROZ.PIGGY IV ×2 (09:24→21:21)
[2018-05-31] MEDS: AZITHROMYCIN 500 MG in DEXTROSE 5% IN WATER 250 ML IV (11:21)
[2018-05-31] MEDS: ONDANSETRON 4 MG/2 ML INJ IV (12:06)
--- NOTE | 2018-05-31 12:41 | PT.IPTN ---
Current Diagnoses Anemia in other chronic diseases classified elsewhere (05/29/18) Hypo-osmolality and hyponatremia (05/29/18) Major depressive disorder, recurrent, moderate (05/29/18) Pneumonia, unspecified organism (05/29/18) Acute respiratory failure, unspecified whether with hypoxia or hypercapnia (05/29/18) Age-related osteoporosis with current pathological fracture, unspecified site, initial encounter for fracture (05/29/18) Age-related osteoporosis without current pathological fracture (05/29/18) Urinary tract infection, site not specified (05/29/18) Other chest pain (05/29/18) Wedge compression fracture of second lumbar vertebra, initial encounter for closed fracture (05/29/18) Physical Therapy Treatment Note M2 PT-IP Current Condition Start: 05/28/18 11:16 Freq: NEEDED Status: Active Protocol: Document 05/28/18 15:35 AB (Rec: 05/28/18 16:29 AB [id number]) Physical Therapy Current Condition Current Condition Evaluation Date 05/28/18 Treatment Diagnosis L2 compression fx; difficulty in walking Onset Date 05/28/18 Precautions Lumbar Precautions Log Roll No Twisting Limit Bending Lifting Restriction of 10 lbs Brace TLSO brace: nurse got a verbal order from pt's doctor that TLSO on when out of bed but can be when in bed. Other Precautions BP M3 PT-IP Subjective Start: 05/28/18 11:16 Freq: NEEDED Status: Active Protocol: Document 05/31/18 10:45 [facility] (Rec: 05/31/18 12:40 [facility] [id number]) Subjective Physical Therapy Visit Type Type Treatment Note Visit Start Time 10:45 Visit Stop Time 11:17 Total Visit Minutes 32 Number of SYSTEMS DEVELOPMENT MANAGER Visits 3 Physical Therapy Visit Comments Patient Comments Pt willing to get OOB. Therapy Pain Assessment Pain When Pain Assessed At Rest Pain Present Pain Present Pain Reported Location Lower Back Intensity 2 Scale Used Numeric (1 - 10) Pain Management Techniques Modification of Treatment Re-positioning Timing of Activity with Medications M4 PT-IP Mobility and Gait Start: 05/28/18 11:16 Freq: NEEDED Status: Active Protocol: Document 05/31/18 10:45 [facility] (Rec: 05/31/18 12:40 [facility] [id number]) PT-Bed Mobility Assessment Rolling Type of Rolling Log Rolling Level of Assist Minimal Assistance Moderate Assistance 1 Person Assistance Supine to Sit Supine to Sit Moderate Assistance 1 Person Assistance Bedrails Scooting Scooting to Edge of Bed Minimal Assistance PT-Transfer Assessment Sit to and From Stand Sit to and from Stand Minimal Assistance 1 Person Assistance Use of Upper Extremities Equipment Transfer Assistive Device Gait Belt Front Wheeled Walker Orthotic/Prosthetic Devices or Brace: Yes Transfers Transfer Destination Chair Bedside Commode Transfer Ability Level of Assist Minimal Assistance 1 Person Assistance Use of Upper Extremities Comments Mobility Comments Pt supine BP 123/69, O2 decreased to 87% on 3L with quick recovery with PLB. BP sitting EOB 123/57. BP after transfer to BSC 79/52 and 98/ 66 after transfer to chair. O2 ranged from 100% to 72% with quick recovery with PLB. Gait Assessment Comments Gait Comments unable M5 PT-IP Objective Assessments Start: 05/28/18 11:16 Freq: NEEDED Status: Active Protocol: Document 05/28/18 10:45 AB (Rec: 05/28/18 11:33 AB [id number]) Orientation Orientation/Cognition Level of Alertness Alert Orientation Name Age Birthday Month Date Year Day of Week Place Situation Safety Awareness Understands Safety Issues Gross Range of Motion Lower Extremity ROM Assessment Within Functional Limits Strength Lower Extremity Strength Assessment Within Functional Limits Sensation Assessment Sensation Gross Sensation WNL M6 PT-IP Treatment Start: 05/28/18 11:16 Freq: NEEDED Status: Active Protocol: Document 05/31/18 10:45 [facility] (Rec: 05/31/18 12:40 [facility] [id number]) Physical Therapy Treatment Education Education Provided Precautions Safety M7 PT-IP Assessment and Plan Start: 05/28/18 11:16 Freq: NEEDED Status: Active Protocol: Document 05/31/18 10:45 [facility] (Rec: 05/31/18 12:40 [facility] [id number]) PT Summary Assessment and Plan Summary Assessment Summary Pt progressing slowly. Pt needs Min-Mod A with all mobility with decrease in O2 sats with exertion (see mobility comments). She would benefit from SNF due to level assist for mobility. Goals Bed Mobility Goal Independent Transfer Goal Standby Assistance Front Wheeled Walker Gait Goal Standby Assistance Front Wheel Walker Gait Distance 100 Other Goals STG: to improve bed mobility, transfers to SBA and ambulation using FWW SBA ~ 75 ft LTG: to improve ambulation using least restrictive device ~ 100 ft SBA Days to Meet Goals 5 Frequency of Treatment Frequency Of Treatment Twice a Day Treatment Plan Physical Therapy Treatment Plan Bed Mobility Training Transfer Training Gait Training Therapeutic Exercise Balance Retraining Post Op Education Discharge Planning Hot or Cold Pack Neuromuscular Re-ed Coordination Retraining Manual Therapy Recommendations To Nursing Amount of Assist Needed 1 Person Assist Discharge Recommendations PT Discharge Recommendations Home with Assistance SNF Rehab Other Discharge Recommendations SNF rehab vs home with assist
--- NOTE | 2018-05-31 12:48 | P.PN_ITS ---
Subjective Date Patient Seen: 05/31/18 Time Patient Seen: 12:38 Interval history: Some better some not so good. The back pain seems to be maybe a bit better as his the sternal pain but only a bed any movement causes more pain breathing deeply causes pain in the sternum. Some short of breath. It discussing status she mentions that she has felt a bit fatigued over the last few months but no particular changes otherwise. Asking specifically has she noted any changes with stool as far as black or blood, denies and keeps up with a diet though low in meat has good range of vegetables other foods. Exam Vital Signs (past 8 hours): - 05/31/18 05:00 05/31/18 07:30 05/31/18 07:35 Temperature 98.1 F 97.8 F Pulse Rate 84 81 Respiratory Rate 28 H 16 Blood Pressure 108/56 L 126/64 Blood Pressure [Orthostatic Lying] Blood Pressure [Orthostatic Sitting] Pulse Oximetry 92 96 85 L 05/31/18 07:36 05/31/18 11:15 05/31/18 11:20 Temperature Pulse Rate Respiratory Rate Blood Pressure Blood Pressure [Orthostatic Lying] 123/69 Blood Pressure [Orthostatic Sitting] 123/57 L 79/52 L Pulse Oximetry 93 05/31/18 11:25 Temperature Pulse Rate Respiratory Rate Blood Pressure Blood Pressure [Orthostatic Lying] Blood Pressure [Orthostatic Sitting] 98/66 Pulse Oximetry Oxygen Delivery Method Nasal Cannula Oxygen Flow Rate 4 Narrative Exam Narrative: Lying quietly in bed in some evident distress. Provides a cooling calm interaction. HEENT unremarkable neck benign without jugular venous distention or bruit chest shows crackles in the bases heart regular without murmur moderate sternal tenderness abdomen soft nontender nondistended normoactive bowel tones extremities benign neurologically benign Objective Labs Result Diagrams: 05/31/18 06:07 05/31/18 06:07 Labs: Laboratory Results - last 24 hr 05/31/18 05/31/18 06:07 06:07 WBC 8.2 RBC 2.83 L Hgb 9.1 L Hct 26.5 L MCV 93.5 MCH 32.3 MCHC 34.5 RDW 12.2 Plt Count 139 L Neut % (Auto) 74.5 Lymph % (Auto) 12.1 L [place] % (Auto) 10.5 Eos % (Auto) 1.9 L Baso % (Auto) 1.0 Neut # (Auto) 6100 H Sodium 133 L Potassium 3.7 Chloride 100 Carbon Dioxide 26 BUN 5 L Creatinine 0.60 Estimated GFR > 60.0 BUN/Creatinine Ratio 8.3 Glucose 106 Calcium 7.8 L B-Natriuretic Peptide 314.0 H Assessment & Plan (1) Pathological fracture due to age-related osteoporosis: Problem details: Of the vertebra. Continued pain over have somewhat better now on calcitonin spray. Current visit: Yes Status: Acute (2) Sternum pain: Problem details: More bruising issue after a fall contributing to disability continue same for now. Current visit: Yes Status: Acute (3) Pneumonia, community acquired: Problem details: On antibiotics still with fair O2 demand. Will recheck chest x-ray in the morning also request RT evaluate. Current visit: Yes Status: Acute (4) Acute respiratory failure: Problem details: Likely due to last item, still suspect a component of splinting or caution due to fracture pain, continues to require O2 supplementation of fair quantity. Current visit: Yes Status: Acute (5) Anemia, chronic disease: Problem details: Continues to drop slowly without clear cause but with her history of fatigue I wonder if she has had a worsening problem here for a while. Urine done on admission showed no blood will check guaiac and nutritional studies. No transfusion required at this point. Continue to monitor. Current visit: Yes Status: Acute (6) Urinary tract infection: Problem details: With a positive UA but negative culture not currently on definitive antibiotics. Current visit: Yes Status: Acute (7) Hypotension: Problem details: This is variable and no clear cause. Response to IV fluids but afraid of over hydrating. Wonder if perhaps sepsis though other factors remain stable. Continue to monitor Current visit: Yes Status: Acute Plan: Assessment/Plan Narrative: RT consult, follow labs and x-ray, PT OT as tolerated Quality VTE Deep Vein Thrombosis/Pulmonary Embolism Present on Admission: No
--- NOTE | 2018-05-31 14:38 | PC.NURSE ---
Pain/decreased activity tolerance: Patient having pain this shift relieved with rest and dilaudid. Patient unable to tolerate much activity this shift. Tolerated 15 minutes in chair. Patient becoming orthostatic this shift while getting up to bed side commode. Dr. Palacios at bedside to assess this shift. Patient refusing PT this afternoon stating that she is to tired. No acute distress at this time. Will continue to monitor.
--- NOTE | 2018-05-31 15:55 | PT.IPTN ---
Current Diagnoses Anemia in other chronic diseases classified elsewhere (05/29/18) Hypo-osmolality and hyponatremia (05/29/18) Major depressive disorder, recurrent, moderate (05/29/18) Hypotension, unspecified (05/29/18) Pneumonia, unspecified organism (05/29/18) Acute respiratory failure, unspecified whether with hypoxia or hypercapnia (05/29/18) Age-related osteoporosis with current pathological fracture, unspecified site, initial encounter for fracture (05/29/18) Age-related osteoporosis without current pathological fracture (05/29/18) Urinary tract infection, site not specified (05/29/18) Other chest pain (05/29/18) Wedge compression fracture of second lumbar vertebra, initial encounter for closed fracture (05/29/18) Physical Therapy Treatment Note M2 PT-IP Current Condition Start: 05/28/18 11:16 Freq: NEEDED Status: Active Protocol: Document 05/28/18 15:35 AB (Rec: 05/28/18 16:29 AB [id number]) Physical Therapy Current Condition Current Condition Evaluation Date 05/28/18 Treatment Diagnosis L2 compression fx; difficulty in walking Onset Date 05/28/18 Precautions Lumbar Precautions Log Roll No Twisting Limit Bending Lifting Restriction of 10 lbs Brace TLSO brace: nurse got a verbal order from pt's doctor that TLSO on when out of bed but can be when in bed. Other Precautions BP M3 PT-IP Subjective Start: 05/28/18 11:16 Freq: NEEDED Status: Active Protocol: Document 05/31/18 15:54 CLB (Rec: 05/31/18 15:55 CLB [id number]) Subjective Physical Therapy Visit Type Type Patient Refusal Notes Pt refused stating she was too tired.
[2018-05-31] MEDS: BISACODYL 10 MG SUPP PR (21:39)
[2018-06-01] VITALS (7 sets, daily range): BP systolic 126–135; BP diastolic 56–85; PULSE 76–82; RESP 16–20; TEMP 36.1–36.9; O2SAT 86–98
[2018-06-01] MEDS: ONDANSETRON 4 MG/2 ML INJ IV ×2 (01:04→05:44)
[2018-06-01] MEDS: HYDROMORPHONE 2 MG TABLET PO ×3 (05:43→20:03)
--- NOTE | 2018-06-01 05:46 | PC.NURSE ---
Shift: Pt initially on 4L humidified O2 at start of shift, attempted to titrate down but was unable to maintain sats above 88% on 3L. Pt breathes through mouth at times. Pt also c/o nausea on shift that this RN medicated with Zofran twice per SEP. Pt c/o severe headache that she rated a 4/10 on the pain scale and requested pain medication for. Pt found to be intermittently moaning in bed with hand on face.
[2018-06-01 06:21] LABS: Add Manual Diff / Slide Review NO; Basophils Percent Auto 0.8 % (0-2); Eosinophils Percent Auto 2.6 % (2-4); Hematocrit 27.4 % (36-46); Hemoglobin 9.2 g/dL (12.0-16.0); Lymphocytes Percent Auto 16.3 % (25-40); Mean Corpuscular HGB Conc 33.5 % (30-36); Mean Corpuscular Hemoglobin 31.8 PG (26-34); Mean Corpuscular Volume 94.8 fL (80-100); Monocytes Percent Auto 12.7 % (3-14); Neutrophils Absolute Auto 5400 /uL (3000-5900); Neutrophils Percent Auto 67.6 % (50-75); Platelet Count 173 X10^3/uL (150-400); Red Blood Cell Count 2.89 X10^6/uL (4.0-5.2); Red Cell Distribution Width 12.1 % (11.6-14.8); White Blood Cell Count 7.9 X10^3/uL (4.5-11.0)
[2018-06-01 06:26] LABS: Blood Urea Nitrogen 4 mg/dL (7-17); Calcium 8.1 mg/dL (8.4-10.2); Carbon Dioxide 29 mmol/L (22-32); Estimated Glomerular Filt Rate > 60.0 mL/min (>60); Glucose 112 mg/dL (80-110); HEMOLYSIS < 15 (0-50)
[2018-06-01 06:34] LABS: Chloride 98 mmol/L (98-107); Potassium 3.9 mmol/L (3.4-5.1); Sodium 133 mmol/L (137-145)
[2018-06-01 06:38] LABS: HEMOLYSIS < 15 (0-50); Iron 27 ug/dL (37-170)
[2018-06-01 06:50] LABS: Percent Iron Saturation 13 % (15-50); Total Iron Binding Capacity 205 ug/dL (265-497); Transferrin 148 mg/dL (206-381)
--- NOTE | 2018-06-01 07:00 | DI.RAD.S_ITS ---
PROCEDURE: XR CHEST 1V INDICATIONS: Follow-up pneumonia TECHNIQUE: One view of the chest was acquired. COMPARISON: [facility], , CHEST 2 VIEW, 06/26/2013, 21:25. [facility], CR, XR CHEST 1V, 05/27/2018, 18:39. [facility], CR, XR CHEST 1V, 05/30/2018, 5:34. FINDINGS: Surgical changes and devices: Right axillary surgical clips. Lungs and pleura: Interval increase in diffuse, widespread bilateral interstitial and airspace opacities, most notably involving the mid right lung and right lung base. Bilateral pleural effusions, right greater than left, increased on the right. No pneumothorax. Mediastinum: Mediastinal contours appear normal. Heart size is enlarged. Bones and chest wall: No suspicious bony lesions. Overlying soft tissues appear unremarkable. IMPRESSION: 1. Increasing pulmonary edema and/or diffuse bilateral pneumonia. 2. Bibasilar pleural effusions, right side greater than left. Dictated by: Alec Gallardo [facility] Interpreted: Collin Lomeli MD on 06/01/2018 at 7:59 Approved by: Collin Lomeli M.D. on 06/01/2018 at 9:52
[2018-06-01 07:31] LABS: Folate 15.4 ng/mL (2.76-20.0); Vitamin B12 928 pg/mL (239-931)
--- NOTE | 2018-06-01 08:23 | PT.IPTN ---
Current Diagnoses Anemia in other chronic diseases classified elsewhere (05/29/18) Hypo-osmolality and hyponatremia (05/29/18) Major depressive disorder, recurrent, moderate (05/29/18) Hypotension, unspecified (05/29/18) Pneumonia, unspecified organism (05/29/18) Acute respiratory failure, unspecified whether with hypoxia or hypercapnia (05/29/18) Age-related osteoporosis with current pathological fracture, unspecified site, initial encounter for fracture (05/29/18) Age-related osteoporosis without current pathological fracture (05/29/18) Urinary tract infection, site not specified (05/29/18) Other chest pain (05/29/18) Wedge compression fracture of second lumbar vertebra, initial encounter for closed fracture (05/29/18) Physical Therapy Treatment Note Patient Comments Pt reports she didn't sleep well at all last night and is not feeling well enough to participate in therapy this morning.
[2018-06-01] MEDS: CITALOPRAM 20 MG TABLET PO (09:23)
[2018-06-01] MEDS: ENOXAPARIN 40 MG/0.4 ML SYRINGE SUBCUT (09:23)
[2018-06-01] MEDS: PANTOPRAZOLE 40 MG VIAL IV (09:24)
[2018-06-01] MEDS: CALCITONIN,SALMON, NASAL SPRAY 1 SPRAYS NASAL (09:25)
[2018-06-01] MEDS: CEFTRIAXONE 1 GM/50 ML FROZ.PIGGY IV ×2 (09:35→21:04)
[2018-06-01] MEDS: SODIUM CHLORIDE 0.9% 1,000 ML 80 ML IV (09:37)
[2018-06-01] MEDS: AZITHROMYCIN 500 MG in DEXTROSE 5% IN WATER 250 ML 175 ML IV (10:36)
[2018-06-01] MEDS: FUROSEMIDE 20 MG/2 ML VIAL IV (11:07)
--- NOTE | 2018-06-01 14:10 | OT.IP.TRT ---
Current Diagnoses Anemia in other chronic diseases classified elsewhere (05/29/18) Hypo-osmolality and hyponatremia (05/29/18) Major depressive disorder, recurrent, moderate (05/29/18) Hypotension, unspecified (05/29/18) Pneumonia, unspecified organism (05/29/18) Acute respiratory failure, unspecified whether with hypoxia or hypercapnia (05/29/18) Age-related osteoporosis with current pathological fracture, unspecified site, initial encounter for fracture (05/29/18) Age-related osteoporosis without current pathological fracture (05/29/18) Urinary tract infection, site not specified (05/29/18) Other chest pain (05/29/18) Wedge compression fracture of second lumbar vertebra, initial encounter for closed fracture (05/29/18) Occupational Therapy Treatment Note M2 OT-IP Current Condition Start: 05/29/18 15:09 Freq: Status: Active Protocol: Document 05/30/18 12:19 [facility] (Rec: 05/30/18 12:41 [facility] [id number]) Occupational Therapy Current Condition Current Condition Evaluation Date 05/30/18 Treatment Diagnosis L2 compression fx Diagnosis Onset Date 05/28/18 Post Operative Precautions Lumbar Precautions Log Roll No Twisting Limit Bending Lifting Restriction of 10 lbs Other Precautions BP, to wear TLSO when out of bed M3 OT- IP Subjective and Pain Start: 05/29/18 15:09 Freq: Status: Active Protocol: Document 06/01/18 14:08 [facility] (Rec: 06/01/18 14:10 [facility] [id number]) OT- Subjective Occupational Therapy Visit Type Type Patient Refusal Notes Pt states just finished using the bed duron and not wanting to get up for therapy for OT today, but promised to get up tomorrow.
--- NOTE | 2018-06-01 14:54 | CM.DPC ---
DCP Cont: Patient is still having increased cervical/back pain. Confirmed with Nai at [facility] that they still have a bed available for her. Patient lives at home with who has dementia, and sister lives with her also. Patient understands that penitentiary would be temporary, in order for her to received the physical therapy that she needs. P: DCP to continue to follow closely. Should go to [facility] for rehab, when she is medically stable. Becky Valencia RN/Renderer
--- NOTE | 2018-06-01 15:53 | PT.IPTN ---
Current Diagnoses Anemia in other chronic diseases classified elsewhere (05/29/18) Hypo-osmolality and hyponatremia (05/29/18) Major depressive disorder, recurrent, moderate (05/29/18) Hypotension, unspecified (05/29/18) Pneumonia, unspecified organism (05/29/18) Acute respiratory failure, unspecified whether with hypoxia or hypercapnia (05/29/18) Age-related osteoporosis with current pathological fracture, unspecified site, initial encounter for fracture (05/29/18) Age-related osteoporosis without current pathological fracture (05/29/18) Urinary tract infection, site not specified (05/29/18) Other chest pain (05/29/18) Wedge compression fracture of second lumbar vertebra, initial encounter for closed fracture (05/29/18) Physical Therapy Treatment Note M2 PT-IP Current Condition Start: 05/28/18 11:16 Freq: NEEDED Status: Active Protocol: Document 05/28/18 15:35 AB (Rec: 05/28/18 16:29 AB [id number]) Physical Therapy Current Condition Current Condition Evaluation Date 05/28/18 Treatment Diagnosis L2 compression fx; difficulty in walking Onset Date 05/28/18 Precautions Lumbar Precautions Log Roll No Twisting Limit Bending Lifting Restriction of 10 lbs Brace TLSO brace: nurse got a verbal order from pt's doctor that TLSO on when out of bed but can be when in bed. Other Precautions BP M3 PT-IP Subjective Start: 05/28/18 11:16 Freq: NEEDED Status: Active Protocol: Document 06/01/18 15:52 LJ (Rec: 06/01/18 15:53 LJ [id number]) Subjective Physical Therapy Visit Type Type Patient Refusal Physical Therapy Visit Comments Patient Comments Pt too tired and too painful for therapy. States she can't even sit up d/t feeling like she's going to pass out M4 PT-IP Mobility and Gait Start: 05/28/18 11:16 Freq: NEEDED Status: Active Protocol: Document 05/31/18 10:45 CLB (Rec: 05/31/18 12:40 CLB [id number]) PT-Bed Mobility Assessment Rolling Type of Rolling Log Rolling Level of Assist Minimal Assistance Moderate Assistance 1 Person Assistance Supine to Sit Supine to Sit Moderate Assistance 1 Person Assistance Bedrails Scooting Scooting to Edge of Bed Minimal Assistance PT-Transfer Assessment Sit to and From Stand Sit to and from Stand Minimal Assistance 1 Person Assistance Use of Upper Extremities Equipment Transfer Assistive Device Gait Belt Front Wheeled Walker Orthotic/Prosthetic Devices or Brace: Yes Transfers Transfer Destination Chair Bedside Commode Transfer Ability Level of Assist Minimal Assistance 1 Person Assistance Use of Upper Extremities Comments Mobility Comments Pt supine BP 123/69, O2 decreased to 87% on 3L with quick recoverery with PLB. BP sitting EOB 123/57. BP after transfer to BSC 79/52 and 98/ 66 after transfer to chair. O2 ranged from 100% to 72% with quick recovery with PLB. Gait Assessment Comments Gait Comments unable M5 PT-IP Objective Assessments Start: 05/28/18 11:16 Freq: NEEDED Status: Active Protocol: Document 05/28/18 10:45 AB (Rec: 05/28/18 11:33 AB [id number]) Orientation Orientation/Cognition Level of Alertness Alert Orientation Name Age Birthday Month Date Year Day of Week Place Situation Safety Awareness Understands Safety Issues Gross Range of Motion Lower Extremity ROM Assessment Within Functional Limits Strength Lower Extremity Strength Assessment Within Functional Limits Sensation Assessment Sensation Gross Sensation WNL M6 PT-IP Treatment Start: 05/28/18 11:16 Freq: NEEDED Status: Active Protocol: Document 05/31/18 10:45 CLB (Rec: 05/31/18 12:40 CLB [id number]) Physical Therapy Treatment Education Education Provided Precautions Safety M7 PT-IP Assessment and Plan Start: 05/28/18 11:16 Freq: NEEDED Status: Active Protocol: Document 05/31/18 10:45 CLB (Rec: 05/31/18 12:40 CLB [id number]) PT Summary Assessment and Plan Summary Assessment Summary Pt progressing slowly. Pt needs Min-Mod A with all mobility with decrease in O2 sats with exersion (see mobility comments). She would benefit from SNF due to level assist for mobility. Goals Bed Mobility Goal Independent Transfer Goal Standby Assistance Front Wheeled Walker Gait Goal Standby Assistance Front Wheel Walker Gait Distance 100 Other Goals STG: to improve bed mobility, transfers to SBA and ambulation using FWW SBA ~ 75 ft LTG: to improve ambulation using least restrictive device ~ 100 ft SBA Days to Meet Goals 5 Frequency of Treatment Frequency Of Treatment Twice a Day Treatment Plan Physical Therapy Treatment Plan Bed Mobility Training Transfer Training Gait Training Therapeutic Exercise Balance Retraining Post Op Education Discharge Planning Hot or Cold Pack Neuromuscular Re-ed Coordination Retraining Manual Therapy Recommendations To Nursing Amount of Assist Needed 1 Person Assist Discharge Recommendations PT Discharge Recommendations Home with Assistance SNF Rehab Other Discharge Recommendations SNF rehab vs home with assist
--- NOTE | 2018-06-01 16:18 | PC.NURSE ---
Addendum entered by Kristy Kong R.N. 06/01/18 21:27: Med at 1999 for discomfort w/good relief. Relatively uneventful evening. Condition remains essentially unchanged. Call light w/in reach, bed alarm on for pt safety. Continue w/plan of care. Original Note: Pt awake,requesting med for discomfort. Med w/ Dilaudid at this time. Lungs clear/diminished at bases. SpO2 97% on 3L. IS to 1000 HLRFA intact/patent. Call light w/in reach, bed alarm on for pt safety.
--- NOTE | 2018-06-01 18:16 | P.PN_ITS ---
Subjective Date Patient Seen: 06/01/18 Time Patient Seen: 07:45 Interval history: Patient seems a little foggy and feels tired her this morning. Still some discomfort and has some loss of appetite with pain meds. Vital signs look stable oxygen saturations still requiring some oxygen supplementation. Patient's IV fluids have been running and her chest x-ray from this morning suggests that if she has a little fluid overloaded. All a remigio IV and give her low dose of Lasix and see if that helps her improve her energy levels. Will continue current antibiotics and Miacalcin nasal spray. If not seeming to get more approve mint tomorrow or if things worsen in any way with respect to her back or neuro function would get Ortho consult question about kyphoplasty. This point hopefully we will need that Social history patient got family involved which went to take her home when she is ready to go home with them so she will have good support. They have good healthcare insight and asked very appropriate questions which I enter an answer. Past medical history patient patient has history of recurrent urinary tract infections Patient has history of osteopenia and now has several fractures Patient has history of depression stable on meds Patient has history of anemia of chronic disease aggravated by her acute injury and counts are stable. Exam Vital Signs (past 8 hours): - 06/01/18 11:00 06/01/18 15:30 Temperature 97 F L 97.5 F L Pulse Rate 76 78 Respiratory Rate 18 19 Blood Pressure 126/56 L 135/70 Pulse Oximetry 98 95 Oxygen Delivery Method Nasal Cannula Oxygen Flow Rate 3 Narrative Exam Narrative: Patient alert and more oriented and more energetic this evening. This morning was a little sleepy and groggy I think from breast from pain meds overnight PERRLA EOMs intact Swallows clear speech is clear Neck without mass Lungs with decreased breath sounds some slight crackling CV is shows regular rate and rhythm no murmur Abdomen nontender Patient lying quite immobile with the respect to her low back pain. Sensory and motor are intact and symmetrical Objective Labs Result Diagrams: 06/01/18 05:50 06/01/18 05:50 Labs: Laboratory Results - last 24 hr 06/01/18 06/01/18 06/01/18 05:50 05:50 05:50 WBC 7.9 RBC 2.89 L Hgb 9.2 L Hct 27.4 L MCV 94.8 MCH 31.8 MCHC 33.5 RDW 12.1 Plt Count 173 Neut % (Auto) 67.6 Lymph % (Auto) 16.3 L [place] % (Auto) 12.7 Eos % (Auto) 2.6 Baso % (Auto) 0.8 Neut # (Auto) 5400 Sodium 133 L Potassium 3.9 Chloride 98 Carbon Dioxide 29 BUN 4 L Creatinine 0.50 L Estimated GFR > 60.0 BUN/Creatinine Ratio 8.0 Glucose 112 H Calcium 8.1 L Iron 27 L TIBC 205 L % Saturation 13 L Transferrin 148 L Vitamin B12 928 Folate 15.4 Assessment & Plan Plan: Assessment/Plan Narrative: Assessment 1. L2 compression fracture. Patient continues to have significant pain. Only on her 2nd day of my calcitonin nasal spray. If not improved by tomorrow will get consult with Ortho question possible kyphoplasty Assessment 2. Pneumonia think patient has mild component of pneumonia superimposed over her weakness and sedation from her fall and pain meds. Will continue with her IV antibiotics. Assessment 3. Think patient was a little bit fluid overloaded. I have cut back on her IV fluids and given her some diuretic and she is requiring less oxygen today. Assessment 4. Anemia says the anemia chronic disease but probably also some from her recent fall and trauma. Assessment 5. Osteopenia with now has recurrence of some fractures probably needs to be re-evaluated when patient is stable Quality VTE Deep Vein Thrombosis/Pulmonary Embolism Present on Admission: No
[2018-06-02] VITALS (12 sets, daily range): BP systolic 116–134; BP diastolic 53–74; PULSE 70–82; RESP 16–22; TEMP 36.4–36.7; O2SAT 86–98; BMI 23.1
[2018-06-02] MEDS: HYDROMORPHONE 2 MG TABLET PO ×4 (03:45→23:38)
[2018-06-02 07:24] LABS: Add Manual Diff / Slide Review NO; Eosinophils Percent Auto 2.8 % (2-4); Hematocrit 28.7 % (36-46); Hemoglobin 9.7 g/dL (12.0-16.0); Lymphocytes Percent Auto 15.1 % (25-40); Mean Corpuscular HGB Conc 33.8 % (30-36); Mean Corpuscular Hemoglobin 31.9 PG (26-34); Mean Corpuscular Volume 94.4 fL (80-100); Monocytes Percent Auto 12.9 % (3-14); Neutrophils Absolute Auto 5400 /uL (3000-5900); Neutrophils Percent Auto 68.2 % (50-75); Platelet Count 204 X10^3/uL (150-400); Red Blood Cell Count 3.04 X10^6/uL (4.0-5.2); Red Cell Distribution Width 12.2 % (11.6-14.8); White Blood Cell Count 7.9 X10^3/uL (4.5-11.0)
[2018-06-02 07:41] LABS: Alanine Aminotransferase 54 IU/L (9-52); Alkaline Phosphatase 144 U/L (38-126); Aspartate Aminotransferase 42 IU/L (14-36); Bilirubin Total 0.6 mg/dL (0.2-1.3); Blood Urea Nitrogen 5 mg/dL (7-17); Calcium 8.1 mg/dL (8.4-10.2); Carbon Dioxide 33 mmol/L (22-32); Chloride 96 mmol/L (98-107); Estimated Glomerular Filt Rate > 60.0 mL/min (>60); Globulin 2.9 g/dL (1.7-4.1); Glucose 98 mg/dL (80-110); HEMOLYSIS < 15 (0-50); Potassium 3.6 mmol/L (3.4-5.1); Sodium 137 mmol/L (137-145); Total Protein 5.9 g/dL (6.3-8.2)
--- NOTE | 2018-06-02 08:45 | PM.PN.1 ---
Subjective Date Patient Seen: 06/02/18 Time Patient Seen: 08:46 Interval history: Found with an emesis basin under chin. Not very well appearing. Says the pain is still maybe 3-4 but perhaps time has felt a little nauseous today does not feel so short of breath but there is still pain with the breathing. Sounds like she was not really willing to get up and move yesterday very much but feels more and courage to do so today. Exam Vital Signs (past 8 hours): - 06/02/18 00:50 06/02/18 03:45 06/02/18 06:05 Temperature 97.7 F Pulse Rate 72 Respiratory Rate 19 Blood Pressure 134/74 Pulse Oximetry 96 94 94 06/02/18 08:11 06/02/18 08:12 Temperature Pulse Rate Respiratory Rate Blood Pressure Pulse Oximetry 94 94 Oxygen Delivery Method Room Air Oxygen Flow Rate 3 Narrative Exam Narrative: Ill appearing but awake and alert appropriate. HEENT benign neck without jugular venous distention chest shows crackles bilaterally heart regular without murmur abdomen soft nontender extremities without edema pulses intact. Neurologically nonfocal. Objective Labs Result Diagrams: 06/02/18 06:48 06/02/18 06:48 Labs: Laboratory Results - last 24 hr 06/02/18 06/02/18 06:48 06:48 WBC 7.9 RBC 3.04 L Hgb 9.7 L Hct 28.7 L MCV 94.4 MCH 31.9 MCHC 33.8 RDW 12.2 Plt Count 204 Neut % (Auto) 68.2 Lymph % (Auto) 15.1 L [place] % (Auto) 12.9 Eos % (Auto) 2.8 Baso % (Auto) 1.0 Neut # (Auto) 5400 Sodium 137 Potassium 3.6 Chloride 96 L Carbon Dioxide 33 H BUN 5 L Creatinine 0.50 L Estimated GFR > 60.0 BUN/Creatinine Ratio 10.0 Glucose 98 Calcium 8.1 L Total Bilirubin 0.6 AST 42 H ALT 54 H Alkaline Phosphatase 144 H D B-Natriuretic Peptide 314.0 H Total Protein 5.9 L Albumin 3.0 L Globulin 2.9 Albumin/Globulin Ratio 1.0 Assessment & Plan (1) Compression fracture of L2 lumbar vertebra: Problem details: still moderate pain and disability. Continuing calcitonin and Dilaudid with still fair impact. Will try lidocaine patch. Qualifiers: Encounter type: initial encounter Fracture healing: Fracture type: closed Qualified Code(s): S32.020A - Wedge compression fracture of second lumbar vertebra, initial encounter for closed fracture Current visit: Yes Status: Acute (2) Sternum pain: Problem details: Continues to impact breathing Current visit: Yes Status: Acute (3) Pneumonia, community acquired: Problem details: On antibiotics still with fair O2 demand. Chest x-ray suggest somewhat worsening findings perhaps more related to CHF and now with evidence of bilateral pleural effusion. Not clear if infection or failure related. Current visit: Yes Status: Acute (4) Acute respiratory failure: Problem details: Likely due to last item and now some evidence of congestive heart failure, along with ongoing splinting related to pain. Current visit: Yes Status: Acute (5) Hypotension: Problem details: This is variable and no clear cause. Response to IV fluids but afraid of over hydrating. Wonder if perhaps sepsis though other factors remain stable. Continue to monitor Current visit: Yes Status: Acute (6) Congestive heart failure of unknown etiology: Problem details: New evidence based on recent chest x-ray and the suspected. No history of heart disease. Did respond to diuresis somewhat yesterday Current visit: Yes Status: Acute (7) Pleural effusion associated with pulmonary infection: Problem details: New finding not clear if failure or pneumonia related. Current visit: Yes Status: Acute Plan: Assessment/Plan Narrative: Will try lidocaine patch for pain switched to oral antibiotics continue light diuresis, follow labs. Encourage activities today will also ask respiratory therapy to be involved. Quality VTE Deep Vein Thrombosis/Pulmonary Embolism Present on Admission: No
[2018-06-02] MEDS: ONDANSETRON 4 MG/2 ML INJ IV (09:01)
[2018-06-02] MEDS: CALCITONIN,SALMON, NASAL SPRAY 1 SPRAYS NASAL (09:25)
[2018-06-02] MEDS: cefUROXime 250 MG TABLET 500 MG PO ×2 (09:25→20:34)
[2018-06-02] MEDS: ENOXAPARIN 40 MG/0.4 ML SYRINGE SUBCUT (09:26)
[2018-06-02] MEDS: CITALOPRAM 20 MG TABLET PO (09:26)
[2018-06-02] MEDS: LIDOCAINE PATCH 1 EACH ADH..PATCH TOP (09:27)
[2018-06-02] MEDS: FUROSEMIDE 20 MG TABLET PO (09:27)
[2018-06-02] MEDS: POLYETHYLENE GLYCOL 3350 17 GM POWD.PACK PO (09:28)
--- NOTE | 2018-06-02 10:40 | CM.DPC ---
DCP Cont: Patient continues to be nauseas today, pain approximately 3-4. Dr. Palacios had seen patient today. He is ordering respiratory therapy to see patient. Plan is for patient to go to [facility] when stable. [facility] is aware, and have a bed available. P: DCP to follow closely. Plan is for [facility] when medically stable. Becky Valencia RN/Barrel Dedenting Machine Operator
--- NOTE | 2018-06-02 10:52 | PC.NURSE ---
Roro initially stated she did not want to turn or move. She wanted bedpan to void. With encouragement, and pre-medication with oral Dilaudid, Roro was then assisted up to BSC and to chair. She has MAGI brace on while up OOB. Lungs have bibasilar crackles 2/3 up. RT was able to assess and she is using IS to 500 mL. O2 sat 92-95%. VSS. Afebrile. Lido patch applied to sternum. Though she has little to no appetite, as well as occasional waves of nausea, she did take in a protein shake after Zofran administered. Started on new Lasix dose per Dr. Palacios.
--- NOTE | 2018-06-02 10:59 | PC.NURSE ---
Agree with student nurse assessment charting.
--- NOTE | 2018-06-02 12:04 | OT.IP.TRT ---
Current Diagnoses Anemia in other chronic diseases classified elsewhere (05/29/18) Hypo-osmolality and hyponatremia (05/29/18) Major depressive disorder, recurrent, moderate (05/29/18) Heart failure, unspecified (05/29/18) Hypotension, unspecified (05/29/18) Pneumonia, unspecified organism (05/29/18) Pleural effusion in other conditions classified elsewhere (05/29/18) Acute respiratory failure, unspecified whether with hypoxia or hypercapnia (05/29/18) Age-related osteoporosis with current pathological fracture, unspecified site, initial encounter for fracture (05/29/18) Age-related osteoporosis without current pathological fracture (05/29/18) Urinary tract infection, site not specified (05/29/18) Other chest pain (05/29/18) Wedge compression fracture of second lumbar vertebra, initial encounter for closed fracture (05/29/18) Occupational Therapy Treatment Note M2 OT-IP Current Condition Start: 05/29/18 15:09 Freq: Status: Active Protocol: Document 05/30/18 12:19 [facility] (Rec: 05/30/18 12:41 [facility] [id number]) Occupational Therapy Current Condition Current Condition Evaluation Date 05/30/18 Treatment Diagnosis L2 compression fx Diagnosis Onset Date 05/28/18 Post Operative Precautions Lumbar Precautions Log Roll No Twisting Limit Bending Lifting Restriction of 10 lbs Other Precautions BP, to wear TLSO when out of bed M3 OT- IP Subjective and Pain Start: 05/29/18 15:09 Freq: Status: Active Protocol: Document 06/02/18 11:53 [facility] (Rec: 06/02/18 12:03 [facility] [id number]) OT- Subjective Occupational Therapy Visit Type Type Treatment Note Visit Start Time 11:20 Visit Stop Time 11:50 Total Visit Minutes 30 Occupational Therapy Visit Comments Patient Comments Pt after encouragement agreeable to get up to the sink to do grooming needs. OT Pain Assessment Pain When Pain Assessed At Rest Pain Present Pain Present Denied Pain M4 OT- IP ADL's Start: 05/29/18 15:09 Freq: Status: Active Protocol: Document 06/02/18 11:53 [facility] (Rec: 06/02/18 12:03 [facility] [id number]) OT ADL-Grooming General Evaluation Grooming Ability Standby Assistance Minimal Assistance Areas Needing Assistance Retrieving/Set-up of Grooming Items Comments OT Grooming Comments Pt able to stand by sink with FWW to do grooming needs. Pt needing assist to wash right hand due to O2 monitor on left hand. OT ADL-Oral Care General Eval Oral Care Ability Independent OT ADL-Toileting General Evaluation Toileting Ability Standby Assistance Devices Toileting Assistive Devices Commode Comments OT Toileting Comments Pt able to do own pericare needs with set-up. M6 OT- IP Functional Cognition Start: 05/29/18 15:09 Freq: Status: Active Protocol: Document 06/02/18 11:53 [facility] (Rec: 06/02/18 12:03 [facility] [id number]) Cognitive Factors Limiting Selfcare Function Cognitive Ability Level of Alertness Alert Patient Orientation Name Place Situation Attention Span Ability Capable of Focused Attention Capable of Sustained Attention Ability to Follow Commands Able to Follow Multi-Step Commands Safety Awareness Decreased Recall of Precautions Underestimates Need for Assistance Problem Solving Ability Needs Assist to Identify Solutions Cognitive Comments Cognitive Assessment Comments VC to keep FWW in front of her at all times. VC to be sure to back up all the way to the BSC before sitting. VC to pull gown away from her before sitting to the commode. M7 OT- IP Mobility and Balance Start: 05/29/18 15:09 Freq: Status: Active Protocol: Document 06/02/18 11:53 [facility] (Rec: 06/02/18 12:03 [facility] [id number]) OT-Transfer Assessment Sit to and From Stand Sit to and from Stand Minimal Assistance Moderate Assistance Transfers Transfer Ability Standby Assistance Contact Guard Assistance Technique Transfer Destination Bedside Commode Chair Transfer Technique Stand Step Pivot Devices Transfer Assistive Devices Gait Belt Front Wheeled Walker Comments Mobility Comments Pt needing more assist to stand MODA from recliner to FWW, INA from BSC. Pt had lose of balance while trying to back up to the recliner. Pt complaining of sternal pain when use of BUE on armrest to push up to stand. OT- Balance Assessment Sitting Balance and Reactions Static Sitting Balance Ability Normal Dynamic Sitting Balance Ability Normal Standing Balance and Reactions Static Standing Balance Ability Fair Dynamic Standing Balance Ability Poor M9 OT- IP Assessment and Plan Start: 05/29/18 15:09 Freq: Status: Active Protocol: Document 06/02/18 11:53 [facility] (Rec: 06/02/18 12:03 [facility] [id number]) OT Summary Assessment and Plan Potential Rehabilitation Potential Good Analytic Complexity at Evaluation Moderate Summary OT Impairments Pain Balance Functional Mobility Grooming Dressing Toileting Bathing Toilet Transfers Shower Transfers Goals Grooming Goal Standby Assistance Dressing Goal Minimal Assistance Toileting Goal Standby Assistance Bathing Goal Minimal Assistance Toilet Transfer Goal Standby Assistance Shower Transfer Goal Contact Guard Assistance Patient/Caregiver Education Goal Caregiver Independent Assisting Patient Days to Meet Goals 5 Frequency of Treatment Frequency Of Treatment Once a Day Treatment Plan OT Treatment Plan ADL Training Functional Mobility Patient/Family Education Discharge Planning Other Treatment Recommendations and Next Practice AED for LB dressing. Treatment Focus Discharge Recommendations OT Discharge Recommendations SNF Rehab
--- NOTE | 2018-06-02 12:10 | PT.IPTN ---
Current Diagnoses Anemia in other chronic diseases classified elsewhere (05/29/18) Hypo-osmolality and hyponatremia (05/29/18) Major depressive disorder, recurrent, moderate (05/29/18) Heart failure, unspecified (05/29/18) Hypotension, unspecified (05/29/18) Pneumonia, unspecified organism (05/29/18) Pleural effusion in other conditions classified elsewhere (05/29/18) Acute respiratory failure, unspecified whether with hypoxia or hypercapnia (05/29/18) Age-related osteoporosis with current pathological fracture, unspecified site, initial encounter for fracture (05/29/18) Age-related osteoporosis without current pathological fracture (05/29/18) Urinary tract infection, site not specified (05/29/18) Other chest pain (05/29/18) Wedge compression fracture of second lumbar vertebra, initial encounter for closed fracture (05/29/18) Physical Therapy Treatment Note M2 PT-IP Current Condition Start: 05/28/18 11:16 Freq: NEEDED Status: Active Protocol: Document 05/28/18 15:35 AB (Rec: 05/28/18 16:29 AB [id number]) Physical Therapy Current Condition Current Condition Evaluation Date 05/28/18 Treatment Diagnosis L2 compression fx; difficulty in walking Onset Date 05/28/18 Precautions Lumbar Precautions Log Roll No Twisting Limit Bending Lifting Restriction of 10 lbs Brace TLSO brace: nurse got a verbal order from pt's doctor that TLSO on when out of bed but can be when in bed. Other Precautions BP M3 PT-IP Subjective Start: 05/28/18 11:16 Freq: NEEDED Status: Active Protocol: Document 06/02/18 10:00 [facility] (Rec: 06/02/18 12:10 [facility] [id number]) Subjective Physical Therapy Visit Type Type Treatment Note Visit Start Time 10:00 Visit Stop Time 10:15 Total Visit Minutes 15 Number of COMMERCIAL PHOTOGRAPHER Visits 4 Physical Therapy Visit Comments Patient Comments Pt up in chair and willing to ambulate this morning. Therapy Pain Assessment Pain When Pain Assessed During Mobility Pain Present Pain Present Pain Reported Location Lower Back Intensity 2 Scale Used Numeric (1 - 10) M4 PT-IP Mobility and Gait Start: 05/28/18 11:16 Freq: NEEDED Status: Active Protocol: Document 06/02/18 10:00 [facility] (Rec: 06/02/18 12:10 [facility] [id number]) PT-Transfer Assessment Sit to and From Stand Sit to and from Stand Minimal Assistance 1 Person Assistance Equipment Transfer Assistive Device Bed Rail Front Wheeled Walker Orthotic/Prosthetic Devices or Brace: Yes Transfers Transfer Destination Chair Transfer Technique Stand Step Pivot Transfer Ability Level of Assist Minimal Assistance 1 Person Assistance Comments Mobility Comments Pt with increased pain in sternum if she uses UE to stand. Gait Assessment Gait Gait Assistance Required: Contact Guard Assist 1 Person Assist Distance (Feet) 40 Able to Maintain Weight Bearing Status Yes During Gait Assistive Devices Assistive Device Gait Belt Front Wheeled Walker Orthotic/Prosthetic Devices or Brace: Yes Gait Deviations General Gait Pattern Decreased Stride Length Decreased Feet Clearance Flexed Trunk Narrow Based Gait Factors Limiting Gait Function Factors Limiting Gait Function Decreased Activity Tolerance Decreased Strength Pain Poor Balance Poor Safety Awareness Respiratory Distress Comments Gait Comments Pt able to ambulate in room needing CGA. M5 PT-IP Objective Assessments Start: 05/28/18 11:16 Freq: NEEDED Status: Active Protocol: Document 05/28/18 10:45 AB (Rec: 05/28/18 11:33 AB [id number]) Orientation Orientation/Cognition Level of Alertness Alert Orientation Name Age Birthday Month Date Year Day of Week Place Situation Safety Awareness Understands Safety Issues Gross Range of Motion Lower Extremity ROM Assessment Within Functional Limits Strength Lower Extremity Strength Assessment Within Functional Limits Sensation Assessment Sensation Gross Sensation WNL M6 PT-IP Treatment Start: 05/28/18 11:16 Freq: NEEDED Status: Active Protocol: Document 05/31/18 10:45 CLB (Rec: 05/31/18 12:40 CLB [id number]) Physical Therapy Treatment Education Education Provided Precautions Safety M7 PT-IP Assessment and Plan Start: 05/28/18 11:16 Freq: NEEDED Status: Active Protocol: Document 06/02/18 10:00 CLB (Rec: 06/02/18 12:10 CLB [id number]) PT Summary Assessment and Plan Summary Assessment Summary Pt able to ambulate in room ~ 40ft requiring CGA. Pt required Min A for sit-stand due to increased pain in sternum. Pt stated that pain in sternum was a 3/10 and 2/10 in back during ambulation. Pt would benefit from skilled rehab before returning home for strengthening and increased endurance. Goals Bed Mobility Goal Independent Transfer Goal Standby Assistance Front Wheeled Walker Gait Goal Standby Assistance Front Wheel Walker Gait Distance 100 Other Goals STG: to improve bed mobility, transfers to SBA and ambulation using FWW SBA ~ 75 ft LTG: to improve ambulation using least restrictive device ~ 100 ft SBA Days to Meet Goals 5 Frequency of Treatment Frequency Of Treatment Twice a Day Treatment Plan Physical Therapy Treatment Plan Bed Mobility Training Transfer Training Gait Training Therapeutic Exercise Balance Retraining Post Op Education Discharge Planning Hot or Cold Pack Neuromuscular Re-ed Coordination Retraining Manual Therapy Other Recommendations and Next Treatment advance gait and bed mobility Focus as able. Recommendations To Nursing Amount of Assist Needed 1 Person Assist Discharge Recommendations PT Discharge Recommendations SNF Rehab Other Discharge Recommendations SNF rehab vs home with assist
[2018-06-02] MEDS: AZITHROMYCIN 250 MG TABLET 500 MG PO (14:11)
--- NOTE | 2018-06-02 16:18 | PT.IPTN ---
Current Diagnoses Anemia in other chronic diseases classified elsewhere (05/29/18) Hypo-osmolality and hyponatremia (05/29/18) Major depressive disorder, recurrent, moderate (05/29/18) Heart failure, unspecified (05/29/18) Hypotension, unspecified (05/29/18) Pneumonia, unspecified organism (05/29/18) Pleural effusion in other conditions classified elsewhere (05/29/18) Acute respiratory failure, unspecified whether with hypoxia or hypercapnia (05/29/18) Age-related osteoporosis with current pathological fracture, unspecified site, initial encounter for fracture (05/29/18) Age-related osteoporosis without current pathological fracture (05/29/18) Urinary tract infection, site not specified (05/29/18) Other chest pain (05/29/18) Wedge compression fracture of second lumbar vertebra, initial encounter for closed fracture (05/29/18) Physical Therapy Treatment Note M2 PT-IP Current Condition Start: 05/28/18 11:16 Freq: NEEDED Status: Active Protocol: Document 05/28/18 15:35 AB (Rec: 05/28/18 16:29 AB [id number]) Physical Therapy Current Condition Current Condition Evaluation Date 05/28/18 Treatment Diagnosis L2 compression fx; difficulty in walking Onset Date 05/28/18 Precautions Lumbar Precautions Log Roll No Twisting Limit Bending Lifting Restriction of 10 lbs Brace TLSO brace: nurse got a verbal order from pt's doctor that TLSO on when out of bed but can be when in bed. Other Precautions BP M3 PT-IP Subjective Start: 05/28/18 11:16 Freq: NEEDED Status: Active Protocol: Document 06/02/18 14:40 CL[facility] (Rec: 06/02/18 16:18 CLB [id number]) Subjective Physical Therapy Visit Type Type Treatment Note Visit Start Time 14:40 Visit Stop Time 15:05 Total Visit Minutes 25 Number of LICENSED PESTICIDE APPLICATOR Visits 5 Physical Therapy Visit Comments Patient Comments Pt willing to get OOB to ambulate and use BR. Therapy Pain Assessment Pain When Pain Assessed During Mobility Pain Present Pain Present Pain Reported Location Medial Chest Intensity 3 Scale Used Numeric (1 - 10) Lower Back Intensity 2 Scale Used Numeric (1 - 10) M4 PT-IP Mobility and Gait Start: 05/28/18 11:16 Freq: NEEDED Status: Active Protocol: Document 06/02/18 14:40 CLB (Rec: 06/02/18 16:18 CLB [id number]) PT-Bed Mobility Assessment Rolling Type of Rolling Roll to Left Level of Assist Contact Guard Assistance 1 Person Assistance Supine to Sit Supine to Sit Contact Guard Assistance 1 Person Assistance Bedrails Sit to Supine Sit to Supine Minimal Assistance 1 Person Assistance Scooting Scooting to Edge of Bed Standby Assistance Scooting Up and Down in Bed Standby Assistance PT-Transfer Assessment Sit to and From Stand Sit to and from Stand Contact Guard Assistance 1 Person Assistance Equipment Transfer Assistive Device Gait Belt Front Wheeled Walker Orthotic/Prosthetic Devices or Brace: Yes Transfers Transfer Destination Chair Toilet Transfer Technique Stand Step Pivot Transfer Ability Level of Assist Minimal Assistance 1 Person Assistance Comments Mobility Comments Pt needs cues to use LE strength during sit-stand due to increased pain in sternum with use of UEs. Gait Assessment Gait Gait Assistance Required: Contact Guard Assist 1 Person Assist Distance (Feet) 40 Assistive Devices Assistive Device Gait Belt Front Wheeled Walker Orthotic/Prosthetic Devices or Brace: Yes Gait Deviations General Gait Pattern Decreased Stride Length Decreased Feet Clearance Flexed Trunk Narrow Based Gait Factors Limiting Gait Function Factors Limiting Gait Function Decreased Activity Tolerance Decreased Strength Pain Poor Balance Poor Safety Awareness Respiratory Distress Comments Gait Comments Pt able to ambulate in room needing CGA assist with lines and monitoring O2 through out session. M5 PT-IP Objective Assessments Start: 05/28/18 11:16 Freq: NEEDED Status: Active Protocol: Document 05/28/18 10:45 AB (Rec: 05/28/18 11:33 AB [id number]) Orientation Orientation/Cognition Level of Alertness Alert Orientation Name Age Birthday Month Date Year Day of Week Place Situation Safety Awareness Understands Safety Issues Gross Range of Motion Lower Extremity ROM Assessment Within Functional Limits Strength Lower Extremity Strength Assessment Within Functional Limits Sensation Assessment Sensation Gross Sensation WNL M6 PT-IP Treatment Start: 05/28/18 11:16 Freq: NEEDED Status: Active Protocol: Document 05/31/18 10:45 CLB (Rec: 05/31/18 12:40 CLB [id number]) Physical Therapy Treatment Education Education Provided Precautions Safety M7 PT-IP Assessment and Plan Start: 05/28/18 11:16 Freq: NEEDED Status: Active Protocol: Document 06/02/18 14:40 CLB (Rec: 06/02/18 16:18 CLB [id number]) PT Summary Assessment and Plan Summary Assessment Summary Pt is in good spirits today and was eager to get up and ambulate. Pt's O2 decreased with ambulation ranging from 84%-88% needing to perform PLB during ambulation and getting OOB. Pt stated she prefers to wear brace as it decreases pain even in bed. Goals Bed Mobility Goal Independent Transfer Goal Standby Assistance Front Wheeled Walker Gait Goal Standby Assistance Front Wheel Walker Gait Distance 100 Other Goals STG: to improve bed mobility, transfers to SBA and ambulation using FWW SBA ~ 75 ft LTG: to improve ambulation using least restrictive device ~ 100 ft SBA Days to Meet Goals 5 Frequency of Treatment Frequency Of Treatment Twice a Day Treatment Plan Physical Therapy Treatment Plan Bed Mobility Training Transfer Training Gait Training Therapeutic Exercise Balance Retraining Post Op Education Discharge Planning Hot or Cold Pack Neuromuscular Re-ed Coordination Retraining Manual Therapy Recommendations To Nursing Amount of Assist Needed 1 Person Assist Discharge Recommendations PT Discharge Recommendations SNF Rehab
[2018-06-02] MEDS: PANTOPRAZOLE 40 MG TABLET PO (20:34)
[2018-06-03] VITALS (7 sets, daily range): BP systolic 121–137; BP diastolic 57–78; PULSE 72–80; RESP 16–18; TEMP 36.5–37.1; O2SAT 94–100
--- NOTE | 2018-06-03 | DI.ECHO.S_ITS ---
[place] [facility]---------+ [facility] +---------+ : : [address] : : : : [id number] : : : : Phone: [phone]+ Echocardiogram Report + + :Name: FERNANDO EUCEDA Study Date: 06/03/2018 Height: 66 in : :[facility] Weight: 142 lb: : Gender: Female BSA: 1.7 m2 : :: 1935 Age: 83 yrs : :Reason For Study: PLEURAL EFFUSION : : Performed By: Rylee Howell : :Referring: LAUREN GANN : + + Interpretation Summary The left ventricle is normal in size, wall thickness, and systolic function without any focal wall motion abnormalities with the ejection fraction visually estimated to be 60-65%. Diastolic parameters suggest probable normal left ventricular diastolic function and normal filling pressures. The right ventricle is normal in size and function. There is moderate pulmonary hypertension with the right ventricular systolic pressure estimated to be at least 51 mmHg based on an estimated right atrial pressure of 15 mm Hg. The left atrium is mildly dilated while right atrial size is normal. There is mild mitral regurgitation and mild to moderate tricuspid regurgitation but no other significant valvular heart disease. There are probable moderate-sized bilateral pleural effusions noted. Procedure: A two-dimensional transthoracic echocardiogram with color flow and Doppler was performed. The study quality was technically adequate. Comparison is made with the echocardiogram of 06/23/2013. The heart rate ranged between 70-89 bpm during the study. Left Ventricle: The left ventricle is normal in size, wall thickness, and systolic function without any focal wall motion abnormalities. The ejection fraction is estimated to be 60-65%. Diastolic parameters suggest probable normal left ventricular diastolic function and normal filling pressures. Right Ventricle: The right ventricle is normal in size and function. Atria: The left atrium is mildly dilated. Right atrial size is normal. There is no Doppler evidence for an interatrial shunt. Mitral Valve: There is mild mitral annular calcification. The mitral valve leaflets appear borderline thickened, but open well. The mitral valve leaflets are slightly calcified. There is mild mitral regurgitation. Aortic Valve: The aortic valve is trileaflet. The aortic valve opens well. There is no aortic valve stenosis. No aortic regurgitation is present. Tricuspid Valve: The tricuspid valve is normal in structure and function. There is mild to moderate tricuspid regurgitation. There is moderate pulmonary hypertension. The right ventricular systolic pressure is estimated to be at least 51 mmHg based on an estimated right atrial pressure of 15 mm Hg. Pulmonic Valve: The pulmonic valve is normal in structure and function. There is a trace or physiologic amount of pulmonic regurgitation. There is no other significant valvular heart disease. Great Vessels: The aortic root is normal size. The ascending aorta is normal in size. The aortic arch is normal in size. The pulmonary artery is not well visualized, but is probably normal size. The IVC is dilated (diameter is greater than 2.1 cm) and it collapses less than 50% with a sniff. This suggests a high right atrial pressure of 15 mm Hg. Pericardium/ Pleura There is no pericardial effusion. There are moderate- sized bilateral pleural effusions noted. MMode/2D Measurements & Calculations LVIDd: 4.4 cm LVOT diam: 1.9 cm LVIDs: 2.3 cm Ao root diam: 3.0 cm FS: 46.9 % asc Aorta Diam: 2.9 cm IVSd: 0.85 cm Ao Arch Diam (Prox Trans): 2.0 cm LVPWd: 0.93 cm LV mora. diameter/BSA (cm/m^2): 2.5 LV sys. diameter/BSA (cm/m^2): 1.3 LA A2 area: 21.3 cm2 RA long axis: 5.0 cm LA A4 area: 19.7 cm2 RA area: 13.8 cm2 LA length (vol): 5.0 cm RA vol: 32.6 ml LA vol: 70.9 ml RA : 18.9 ml/m2 LA vol index: 41.0 ml/m2 IVC diam: 2.3 cm RVD1 (basal): 3.7 cm TAPSE: 2.0 cm Doppler Measurements & Calculations Ao V2 max: 158.3 cm/sec LVOT Max Maurice: 99.4 cm/sec Ao V2 mean: 105.5 cm/sec LV V1 max P.0 mmHg Ao max P.0 mmHg LV V1 VTI: 22.0 cm Ao mean P.0 mmHg DANNA(I,D): 2.0 cm2 Ao V2 VTI: 31.0 cm DANNA(V,D): 1.8 cm2 sev ratio: 0.71 DANNA indexed to BSA (cm^2/m^2): 1.1 MV E max maurice: 84.2 cm/sec TR max maurice: 298.2 cm/sec MV A max maurice: 67.3 cm/sec TR max P.6 mmHg MV E/A: 1.3 Med Peak E' Maurice: 10.2 cm/sec E/E' med: 8.2 Lat Peak E' Mauirce: 9.9 cm/sec E/E' lat: 8.5 E/e' average: 8.4 MV dec time: 0.21 sec Reading Physician:MARIA FERNANDA
--- NOTE | 2018-06-03 | DI.RAD.S_ITS ---
PROCEDURE: XR CHEST 2V INDICATIONS: hypoxemia TECHNIQUE: 2 views of the chest were acquired. COMPARISON: [facility], CR, XR CHEST 1V, 06/01/2018, 6:24. FINDINGS: Surgical changes and devices: Right axillary clips. Lungs and pleura: There is mild increasing appearance of retrocardiac and left basilar opacity. There is blunting of the right costophrenic angle and to a much lesser degree the right costophrenic angle. Right basilar opacity remains present although improved compared to prior exam. There's overall appearance of increased pulmonary vascularity. Mediastinum: Mediastinal contours are normal. Heart size is normal. Bones and chest wall: No suspicious bony abnormalities. Soft tissues appear unremarkable. IMPRESSION: Interval worsening of left basilar opacity with interval improvement on the right. Overall appearance remains most suggestive of edema with likely superimposed focal edema, pneumonia and/or atelectasis within the left base. Recommend continued interval followup to document resolution. Dictated by: Nai Echevarria M.D. on 06/03/2018 at 10:52 Approved by: Nai Echevarria M.D. on 06/03/2018 at 10:53
--- NOTE | 2018-06-03 06:01 | PC.NURSE ---
Pt is AxOx3, on 2L NC at 97% but when on room air she desats to 86%. Dilaudid 2mg PO given for back pain. Able to ambulate to bathroom well with one person assist and walker. Lungs have crackles throughout.
[2018-06-03 07:03] LABS: Add Manual Diff / Slide Review NO; Basophils Percent Auto 1.4 % (0-2); Eosinophils Percent Auto 3.9 % (2-4); Hematocrit 30.7 % (36-46); Hemoglobin 10.3 g/dL (12.0-16.0); Lymphocytes Percent Auto 27.2 % (25-40); Mean Corpuscular HGB Conc 33.4 % (30-36); Mean Corpuscular Hemoglobin 31.5 PG (26-34); Mean Corpuscular Volume 94.3 fL (80-100); Monocytes Percent Auto 14.7 % (3-14); Neutrophils Absolute Auto 4100 /uL (3000-5900); Neutrophils Percent Auto 52.8 % (50-75); Platelet Count 254 X10^3/uL (150-400); Red Blood Cell Count 3.26 X10^6/uL (4.0-5.2); Red Cell Distribution Width 12.5 % (11.6-14.8); White Blood Cell Count 7.7 X10^3/uL (4.5-11.0)
[2018-06-03 07:10] LABS: Alanine Aminotransferase 55 IU/L (9-52); Albumin 3.2 g/dL (3.5-5.0); Albumin Globulin Ratio 1.1 (1.0-2.8); Alkaline Phosphatase 155 U/L (38-126); Aspartate Aminotransferase 43 IU/L (14-36); Bilirubin Total 0.5 mg/dL (0.2-1.3); Blood Urea Nitrogen 9 mg/dL (7-17); Calcium 8.5 mg/dL (8.4-10.2); Carbon Dioxide 33 mmol/L (22-32); Chloride 99 mmol/L (98-107); Estimated Glomerular Filt Rate > 60.0 mL/min (>60); Globulin 2.9 g/dL (1.7-4.1); Glucose 95 mg/dL (80-110); HEMOLYSIS < 15 (0-50); Potassium 4.1 mmol/L (3.4-5.1); Sodium 139 mmol/L (137-145); Total Protein 6.1 g/dL (6.3-8.2)
[2018-06-03] MEDS: HYDROMORPHONE 2 MG TABLET PO ×4 (08:29→22:07)
--- NOTE | 2018-06-03 10:18 | OT.IP.TRT ---
Current Diagnoses Anemia in other chronic diseases classified elsewhere (05/29/18) Hypo-osmolality and hyponatremia (05/29/18) Major depressive disorder, recurrent, moderate (05/29/18) Heart failure, unspecified (05/29/18) Hypotension, unspecified (05/29/18) Pneumonia, unspecified organism (05/29/18) Pleural effusion in other conditions classified elsewhere (05/29/18) Acute respiratory failure, unspecified whether with hypoxia or hypercapnia (05/29/18) Age-related osteoporosis with current pathological fracture, unspecified site, initial encounter for fracture (05/29/18) Age-related osteoporosis without current pathological fracture (05/29/18) Urinary tract infection, site not specified (05/29/18) Other chest pain (05/29/18) Wedge compression fracture of second lumbar vertebra, initial encounter for closed fracture (05/29/18) Occupational Therapy Treatment Note M2 OT-IP Current Condition Start: 05/29/18 15:09 Freq: Status: Active Protocol: Document 05/30/18 12:19 [facility] (Rec: 05/30/18 12:41 [facility] [id number]) Occupational Therapy Current Condition Current Condition Evaluation Date 05/30/18 Treatment Diagnosis L2 compression fx Diagnosis Onset Date 05/28/18 Post Operative Precautions Lumbar Precautions Log Roll No Twisting Limit Bending Lifting Restriction of 10 lbs Other Precautions BP, to wear TLSO when out of bed M3 OT- IP Subjective and Pain Start: 05/29/18 15:09 Freq: Status: Active Protocol: Document 06/03/18 10:18 [facility] (Rec: 06/03/18 14:51 [facility] [id number]) OT- Subjective Occupational Therapy Visit Type Type Administrative Note Visit Start Time 10:18 Notes Attempted to see pt , but she was too fatigued and in too much pain to participate after trip down to [employer] this AM. Attempted later and pt was having echo. No charge.
[2018-06-03] MEDS: FUROSEMIDE 20 MG TABLET PO (10:53)
[2018-06-03] MEDS: LIDOCAINE PATCH 1 EACH ADH..PATCH TOP (10:53)
--- NOTE | 2018-06-03 11:04 | PC.NURSE ---
Addendum entered by Michelle Tabares R.N. 06/03/18 12:56: Pt continues with intermintent pain from DUKE and back. Down to DI for CT of chest, requests pain control when back to floor. Original Note: AM shift Pt is A/ox3, reports pain, medicated with PO dilaudid. Back improved somewhat, DUKE persistent. Will reassess after echo completed. Lungs remain with coarse crackles. [facility] into see Pt, echo and CXR to compare previous. Pt denies SOB but noted with desat while on RA and getting up from bed.
--- NOTE | 2018-06-03 11:29 | PT.IPTN ---
Current Diagnoses Anemia in other chronic diseases classified elsewhere (05/29/18) Hypo-osmolality and hyponatremia (05/29/18) Major depressive disorder, recurrent, moderate (05/29/18) Heart failure, unspecified (05/29/18) Hypotension, unspecified (05/29/18) Pneumonia, unspecified organism (05/29/18) Pleural effusion in other conditions classified elsewhere (05/29/18) Acute respiratory failure, unspecified whether with hypoxia or hypercapnia (05/29/18) Age-related osteoporosis with current pathological fracture, unspecified site, initial encounter for fracture (05/29/18) Age-related osteoporosis without current pathological fracture (05/29/18) Urinary tract infection, site not specified (05/29/18) Other chest pain (05/29/18) Wedge compression fracture of second lumbar vertebra, initial encounter for closed fracture (05/29/18) Physical Therapy Treatment Note M2 PT-IP Current Condition Start: 05/28/18 11:16 Freq: NEEDED Status: Active Protocol: Document 05/28/18 15:35 [facility] (Rec: 05/28/18 16:29 AB [id number]) Physical Therapy Current Condition Current Condition Evaluation Date 05/28/18 Treatment Diagnosis L2 compression fx; difficulty in walking Onset Date 05/28/18 Precautions Lumbar Precautions Log Roll No Twisting Limit Bending Lifting Restriction of 10 lbs Brace TLSO brace: nurse got a verbal order from pt's doctor that TLSO on when out of bed but can be when in bed. Other Precautions BP M3 PT-IP Subjective Start: 05/28/18 11:16 Freq: NEEDED Status: Active Protocol: Document 06/03/18 11:28 [facility] (Rec: 06/03/18 11:28 [facility] [id number]) Subjective Physical Therapy Visit Type Notes Pt having a echo and per RN having increase in pain. Will see in PM. Recommendations To Nursing Amount of Assist Needed 1 Person Assist Discharge Recommendations PT Discharge Recommendations SNF Rehab
--- NOTE | 2018-06-03 11:43 | DI.CT.S_ITS ---
PROCEDURE: CT CHEST W CON INDICATIONS: Hypoxia, unresolved, cause cardiac vs pulmonary TECHNIQUE: After the administration of intravenous contrast, 5 mm thick sections acquired from the pulmonary apices to the posterior costophrenic angles. 7 mm thick coronal and sagittal MIP reformats were acquired. For radiation dose reduction, the following was used: automated exposure control, adjustment of mA and/or kV according to patient size. COMPARISON: [facility], CT, CT ABDOMEN PELVIS W CON, 05/27/2018, 18:40. FINDINGS: Image quality: Excellent. Lungs and pleura: There are moderate sized low-density bilateral pleural effusions. These are new when compared with the prior study dated 05/27/18. Compressive atelectasis or consolidation is present in the dependent lung bases bilaterally. Interlobular septal thickening and groundglass opacities are present at the apices suggesting pulmonary edema. Mediastinum: Heart size is normal. No pericardial effusion. No mediastinal or hilar adenopathy by size criteria. Thoracic aorta and central pulmonary arteries are normal in size. No intraluminal filling defects are visualized within the central pulmonary arteries. Scattered atheromatous calcifications are present within the aortic arch. Esophagus is normal in caliber. No hiatal hernia. 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 No suspicious bony lesions. No vertebral body compression fractures. No axillary or supraclavicular adenopathy by size criteria. Thyroid gland is unremarkable. Abdomen: A low density cystic lesion is redemonstrated within the posterior aspect of hepatic segment VII. Visualized upper abdominal solid organs appear normal. Upper abdominal bowel loops are normal in caliber. IMPRESSION: 1. New moderate size bilateral low density pleural effusions. 2. New consolidation or compressive atelectasis at the bilateral lung bases. 3. Mild pulmonary edema. Dictated by: Melissa Barrera M.D. on 06/03/2018 at 13:24 Approved by: Melissa Barrera M.D. on 06/03/2018 at 13:29
[2018-06-03] MEDS: AZITHROMYCIN 250 MG TABLET 500 MG PO (13:16)
[2018-06-03] MEDS: CITALOPRAM 20 MG TABLET PO (13:17)
[2018-06-03] MEDS: cefUROXime 250 MG TABLET 500 MG PO ×2 (13:17→20:27)
[2018-06-03] MEDS: CALCITONIN,SALMON, NASAL SPRAY 1 SPRAYS NASAL (13:18)
[2018-06-03] MEDS: ENOXAPARIN 40 MG/0.4 ML SYRINGE SUBCUT (13:18)
--- NOTE | 2018-06-03 15:00 | PT.IPTN ---
Current Diagnoses Anemia in other chronic diseases classified elsewhere (05/29/18) Hypo-osmolality and hyponatremia (05/29/18) Major depressive disorder, recurrent, moderate (05/29/18) Heart failure, unspecified (05/29/18) Hypotension, unspecified (05/29/18) Pneumonia, unspecified organism (05/29/18) Pleural effusion in other conditions classified elsewhere (05/29/18) Acute respiratory failure, unspecified whether with hypoxia or hypercapnia (05/29/18) Age-related osteoporosis with current pathological fracture, unspecified site, initial encounter for fracture (05/29/18) Age-related osteoporosis without current pathological fracture (05/29/18) Urinary tract infection, site not specified (05/29/18) Other chest pain (05/29/18) Wedge compression fracture of second lumbar vertebra, initial encounter for closed fracture (05/29/18) Physical Therapy Treatment Note M2 PT-IP Current Condition Start: 05/28/18 11:16 Freq: NEEDED Status: Active Protocol: Document 05/28/18 15:35 AB (Rec: 05/28/18 16:29 AB [id number]) Physical Therapy Current Condition Current Condition Evaluation Date 05/28/18 Treatment Diagnosis L2 compression fx; difficulty in walking Onset Date 05/28/18 Precautions Lumbar Precautions Log Roll No Twisting Limit Bending Lifting Restriction of 10 lbs Brace TLSO brace: nurse got a verbal order from pt's doctor that TLSO on when out of bed but can be when in bed. Other Precautions BP M3 PT-IP Subjective Start: 05/28/18 11:16 Freq: NEEDED Status: Active Protocol: Document 06/03/18 15:00 [facility]GD (Rec: 06/03/18 15:45 GGD [id number]) Subjective Physical Therapy Visit Type Type Treatment Note Visit Start Time 14:35 Visit Stop Time 15:00 Total Visit Minutes 25 Number of PLATE GRAINER Visits 6 Physical Therapy Visit Comments Patient Comments Pt willing to get up. M4 PT-IP Mobility and Gait Start: 05/28/18 11:16 Freq: NEEDED Status: Active Protocol: Document 06/03/18 15:00 GGD (Rec: 06/03/18 15:45 [facility]GD [id number]) PT-Bed Mobility Assessment Rolling Type of Rolling Roll to Left Level of Assist Standby Assistance 1 Person Assistance Supine to Sit Supine to Sit Contact Guard Assistance 1 Person Assistance Bedrails Sit to Supine Sit to Supine Contact Guard Assistance 1 Person Assistance Scooting Scooting to Edge of Bed Standby Assistance Scooting Up and Down in Bed Standby Assistance PT-Transfer Assessment Sit to and From Stand Sit to and from Stand Contact Guard Assistance 1 Person Assistance Equipment Transfer Assistive Device Gait Belt Front Wheeled Walker Orthotic/Prosthetic Devices or Brace: Yes Transfers Transfer Destination Bed Transfer Ability Level of Assist Contact Guard Assistance 1 Person Assistance Gait Assessment Gait Gait Assistance Required: Contact Guard Assist 1 Person Assist Distance (Feet) 60 Assistive Devices Assistive Device Gait Belt Front Wheeled Walker Orthotic/Prosthetic Devices or Brace: Yes Gait Deviations General Gait Pattern Decreased Stride Length Decreased Feet Clearance Flexed Trunk Narrow Based Gait Factors Limiting Gait Function Factors Limiting Gait Function Decreased Activity Tolerance Decreased Strength Pain Poor Balance Poor Safety Awareness Respiratory Distress Comments Gait Comments O2 at rest on 2 L 95% with activity 88% M5 PT-IP Objective Assessments Start: 05/28/18 11:16 Freq: NEEDED Status: Active Protocol: Document 05/28/18 10:45 AB (Rec: 05/28/18 11:33 AB [id number]) Orientation Orientation/Cognition Level of Alertness Alert Orientation Name Age Birthday Month Date Year Day of Week Place Situation Safety Awareness Understands Safety Issues Gross Range of Motion Lower Extremity ROM Assessment Within Functional Limits Strength Lower Extremity Strength Assessment Within Functional Limits Sensation Assessment Sensation Gross Sensation WNL M6 PT-IP Treatment Start: 05/28/18 11:16 Freq: NEEDED Status: Active Protocol: Document 05/31/18 10:45 [facility] (Rec: 05/31/18 12:40 [facility] [id number]) Physical Therapy Treatment Education Education Provided Precautions Safety M7 PT-IP Assessment and Plan Start: 05/28/18 11:16 Freq: NEEDED Status: Active Protocol: Document 06/03/18 15:00 GGD (Rec: 06/03/18 15:45 [facility] [id number]) PT Summary Assessment and Plan Summary Assessment Summary Pt able to progress gait. She did have increase in pain with mobility. She did have decrease in O2 sats with mobility. She would benefit from SNF to improved mobility and strength. Frequency of Treatment Frequency Of Treatment Twice a Day Treatment Plan Physical Therapy Treatment Plan Bed Mobility Training Transfer Training Gait Training Therapeutic Exercise Balance Retraining Post Op Education Discharge Planning Hot or Cold Pack Neuromuscular Re-ed Coordination Retraining Manual Therapy Recommendations To Nursing Amount of Assist Needed 1 Person Assist Discharge Recommendations PT Discharge Recommendations SNF Rehab
[2018-06-03] MEDS: FUROSEMIDE 20 MG/2 ML VIAL IV (15:15)
--- NOTE | 2018-06-03 18:51 | PM.PN.1 ---
Subjective Date Patient Seen: 06/03/18 Time Patient Seen: 08:24 Interval history: Met with patient twice today a both in the a.m. and currently. She had a busy day with having chest x-rays and echos and she did get up and walk with physical therapy and did well. She was given 20 mg of oral Lasix and then 20 mg of IV Lasix after results of her CT scan of her chest. She has had excellent diuresis. She has been getting up to go the bathroom and able to do this better. She just feels very weak. She is not complaining of a lot of back pain but more of sternal pain. She is having difficulty using the incentive spirometer because she either falls asleep or it is painful. She feels that her breathing is getting better and she overall feels that she improved. Twelve point review of systems is negative other than the above HPI, subjective. Patient did have a headache for which she received ibuprofen Patient has not had a bowel movement for a week but she has not been eating a lot she is working to eat more No nausea or vomiting Exam Vital Signs (past 8 hours): - 06/03/18 11:27 06/03/18 15:30 Temperature 98.4 F Pulse Rate 74 80 Respiratory Rate 16 17 Blood Pressure 125/57 L 137/78 Pulse Oximetry 94 100 Oxygen Delivery Method Nasal Cannula Oxygen Flow Rate 2 Narrative Exam Narrative: Alert and oriented in no apparent distress. Appears thin HEENT: Mucous membranes moist and pink Neck: Supple without adenopathy Chest: Decreased breath sounds left base otherwise clear Cor: Regular rate and rhythm without murmur Abdomen: Positive bowel sounds, soft, nontender, nondistended Extremities: No edema pulses intact Neurologic exam nonfocal Skin no rashes Objective Labs Result Diagrams: 06/03/18 05:00 06/03/18 05:00 Labs: Laboratory Results - last 24 hr 06/03/18 06/03/18 05:00 05:00 WBC 7.7 RBC 3.26 L Hgb 10.3 L Hct 30.7 L MCV 94.3 MCH 31.5 MCHC 33.4 RDW 12.5 Plt Count 254 Neut % (Auto) 52.8 Lymph % (Auto) 27.2 [place] % (Auto) 14.7 H Eos % (Auto) 3.9 Baso % (Auto) 1.4 Neut # (Auto) 4100 Sodium 139 Potassium 4.1 Chloride 99 Carbon Dioxide 33 H BUN 9 Creatinine 0.50 L Estimated GFR > 60.0 BUN/Creatinine Ratio 18.0 Glucose 95 Calcium 8.5 Total Bilirubin 0.5 AST 43 H ALT 55 H Alkaline Phosphatase 155 H Total Protein 6.1 L Albumin 3.2 L Globulin 2.9 Albumin/Globulin Ratio 1.1 Assessment & Plan Plan: Assessment/Plan Narrative: 83-year-old female Assessment 1. Lumbar compression fracture with improved pain but still very weak and needing help with activities of daily living and mobility Plan: Continue Miacalcin nasal spray Continuing Dilaudid as needed Continue with physical therapy Continue with brace Anticipate hospitalization for another 48 hr and then probable transfer to a skilled care facility Assessment 2. Hypoxemia suspect multifactorial related to pulmonary edema and possible underlying pneumonia versus atelectasis secondary to pleuritic chest pain Plan: Reviewed chest x-ray and CT scan ordered today. He show worsening left pleural effusion improved right pleural effusion and pulmonary edema with possible secondary imposed infiltrates. Clinically patient seems to be improving. Echo to rule out congestive heart failure is pending. Plan: A[place] report of [facility] [place] [facility] Will continue with Lasix With now I will continue with supplemental oxygen and RT and wean oxygen as tolerated Will continue with oral antibiotics patient was changed from IV yesterday. Assessment 3. Anemia suspect situational related to fluid and illness Plan: Continue to monitor Assessment 4. GI prophylaxis Plan: Continue on pantoprazole Assessment 5. DVT prophylaxis Plan: Continue on Lovenox Assessment 6. Episode of hypotension question related to nausea vomiting and pain he medications improved and tolerating Lasix Plan: Continue to monitor. Echo pending. Quality VTE Deep Vein Thrombosis/Pulmonary Embolism Present on Admission: No
[2018-06-03] MEDS: PANTOPRAZOLE 40 MG TABLET PO (20:27)
[2018-06-04] VITALS (8 sets, daily range): BP systolic 120–138; BP diastolic 55–78; PULSE 70–84; RESP 17–20; TEMP 36.6–37.1; O2SAT 90–100
[2018-06-04 06:24] LABS: Add Manual Diff / Slide Review NO; Basophils Percent Auto 1.2 % (0-2); Eosinophils Percent Auto 3.4 % (2-4); Hematocrit 32.6 % (36-46); Hemoglobin 10.9 g/dL (12.0-16.0); Lymphocytes Percent Auto 20.8 % (25-40); Mean Corpuscular HGB Conc 33.3 % (30-36); Mean Corpuscular Hemoglobin 31.7 PG (26-34); Mean Corpuscular Volume 94.9 fL (80-100); Monocytes Percent Auto 11.6 % (3-14); Neutrophils Absolute Auto 5300 /uL (3000-5900); Platelet Count 304 X10^3/uL (150-400); Red Blood Cell Count 3.43 X10^6/uL (4.0-5.2); Red Cell Distribution Width 12.5 % (11.6-14.8); White Blood Cell Count 8.5 X10^3/uL (4.5-11.0)
[2018-06-04 06:37] LABS: Alanine Aminotransferase 55 IU/L (9-52); Albumin 3.4 g/dL (3.5-5.0); Albumin Globulin Ratio 1.1 (1.0-2.8); Alkaline Phosphatase 153 U/L (38-126); Aspartate Aminotransferase 40 IU/L (14-36); Bilirubin Total 0.5 mg/dL (0.2-1.3); Blood Urea Nitrogen 8 mg/dL (7-17); Calcium 8.8 mg/dL (8.4-10.2); Carbon Dioxide 33 mmol/L (22-32); Chloride 95 mmol/L (98-107); Estimated Glomerular Filt Rate > 60.0 mL/min (>60); Globulin 3.1 g/dL (1.7-4.1); Glucose 99 mg/dL (80-110); HEMOLYSIS < 15 (0-50); Sodium 137 mmol/L (137-145); Total Protein 6.5 g/dL (6.3-8.2)
--- NOTE | 2018-06-04 10:20 | PT.IPTN ---
Current Diagnoses Anemia in other chronic diseases classified elsewhere (05/29/18) Hypo-osmolality and hyponatremia (05/29/18) Major depressive disorder, recurrent, moderate (05/29/18) Heart failure, unspecified (05/29/18) Hypotension, unspecified (05/29/18) Pneumonia, unspecified organism (05/29/18) Pleural effusion in other conditions classified elsewhere (05/29/18) Acute respiratory failure, unspecified whether with hypoxia or hypercapnia (05/29/18) Age-related osteoporosis with current pathological fracture, unspecified site, initial encounter for fracture (05/29/18) Age-related osteoporosis without current pathological fracture (05/29/18) Urinary tract infection, site not specified (05/29/18) Other chest pain (05/29/18) Wedge compression fracture of second lumbar vertebra, initial encounter for closed fracture (05/29/18) Physical Therapy Treatment Note M2 PT-IP Current Condition Start: 05/28/18 11:16 Freq: NEEDED Status: Active Protocol: Document 05/28/18 15:35 AB (Rec: 05/28/18 16:29 AB [id number]) Physical Therapy Current Condition Current Condition Evaluation Date 05/28/18 Treatment Diagnosis L2 compression fx; difficulty in walking Onset Date 05/28/18 Precautions Lumbar Precautions Log Roll No Twisting Limit Bending Lifting Restriction of 10 lbs Brace TLSO brace: nurse got a verbal order from pt's doctor that TLSO on when out of bed but can be when in bed. Other Precautions BP M3 PT-IP Subjective Start: 05/28/18 11:16 Freq: NEEDED Status: Active Protocol: Document 06/04/18 10:20 [facility]GD (Rec: 06/04/18 11:38 [facility] [email or web address]) Subjective Physical Therapy Visit Type Type Treatment Note Visit Start Time 09:55 Visit Stop Time 10:20 Total Visit Minutes 25 Number of PHOTO OFFSET PRINTER Visits 7 Physical Therapy Visit Comments Patient Comments Pt states she willing to work with PT. Therapy Pain Assessment Pain When Pain Assessed At Rest Pain Present Pain Present Pain Reported Location Medial Chest Intensity 5 Scale Used Numeric (1 - 10) M4 PT-IP Mobility and Gait Start: 05/28/18 11:16 Freq: NEEDED Status: Active Protocol: Document 06/04/18 10:20 [facility] (Rec: 06/04/18 11:38 [facility] [email or web address]) PT-Bed Mobility Assessment Rolling Type of Rolling Roll to Left Level of Assist Standby Assistance 1 Person Assistance Supine to Sit Supine to Sit Contact Guard Assistance 1 Person Assistance Bedrails Sit to Supine Sit to Supine Minimal Assistance 1 Person Assistance Scooting Scooting to Edge of Bed Standby Assistance Scooting Up and Down in Bed Standby Assistance PT-Transfer Assessment Sit to and From Stand Sit to and from Stand Contact Guard Assistance 1 Person Assistance Equipment Transfer Assistive Device Gait Belt Front Wheeled Walker Orthotic/Prosthetic Devices or Brace: Yes Transfers Transfer Destination Bed Transfer Ability Level of Assist Contact Guard Assistance 1 Person Assistance Gait Assessment Gait Gait Assistance Required: Contact Guard Assist 1 Person Assist Distance (Feet) 60 Assistive Devices Assistive Device Gait Belt Front Wheeled Walker Orthotic/Prosthetic Devices or Brace: Yes Gait Deviations General Gait Pattern Decreased Stride Length Decreased Feet Clearance Flexed Trunk Narrow Based Gait Factors Limiting Gait Function Factors Limiting Gait Function Decreased Activity Tolerance Decreased Strength Pain Poor Balance Poor Safety Awareness Respiratory Distress Comments Gait Comments O2 at rest on 2 L 95% with activity 88-93% M5 PT-IP Objective Assessments Start: 05/28/18 11:16 Freq: NEEDED Status: Active Protocol: Document 05/28/18 10:45 AB (Rec: 05/28/18 11:33 AB [id number]) Orientation Orientation/Cognition Level of Alertness Alert Orientation Name Age Birthday Month Date Year Day of Week Place Situation Safety Awareness Understands Safety Issues Gross Range of Motion Lower Extremity ROM Assessment Within Functional Limits Strength Lower Extremity Strength Assessment Within Functional Limits Sensation Assessment Sensation Gross Sensation WNL M6 PT-IP Treatment Start: 05/28/18 11:16 Freq: NEEDED Status: Active Protocol: Document 05/31/18 10:45 [facility] (Rec: 05/31/18 12:40 [facility] [id number]) Physical Therapy Treatment Education Education Provided Precautions Safety M7 PT-IP Assessment and Plan Start: 05/28/18 11:16 Freq: NEEDED Status: Active Protocol: Document 06/04/18 10:20 GGD (Rec: 06/04/18 11:38 GGD [email or web address]) PT Summary Assessment and Plan Summary Assessment Summary Pt had increase in pain with mobility. She did need min a with LE into the bed. She did decrease in O2 with bed mobility, but not gait. Frequency of Treatment Frequency Of Treatment Twice a Day Treatment Plan Physical Therapy Treatment Plan Bed Mobility Training Transfer Training Gait Training Therapeutic Exercise Balance Retraining Post Op Education Discharge Planning Hot or Cold Pack Neuromuscular Re-ed Coordination Retraining Manual Therapy Recommendations To Nursing Amount of Assist Needed 1 Person Assist Discharge Recommendations PT Discharge Recommendations SNF Rehab
[2018-06-04] MEDS: LIDOCAINE PATCH 1 EACH ADH..PATCH TOP (10:51)
[2018-06-04] MEDS: ENOXAPARIN 40 MG/0.4 ML SYRINGE SUBCUT (10:52)
[2018-06-04] MEDS: CALCITONIN,SALMON, NASAL SPRAY 1 SPRAYS NASAL (10:55)
[2018-06-04] MEDS: CITALOPRAM 20 MG TABLET PO (10:55)
[2018-06-04] MEDS: POLYETHYLENE GLYCOL 3350 17 GM POWD.PACK PO (10:57)
[2018-06-04] MEDS: FUROSEMIDE 20 MG TABLET PO (10:57)
[2018-06-04] MEDS: cefUROXime 250 MG TABLET 500 MG PO ×2 (13:14→21:10)
--- NOTE | 2018-06-04 13:34 | P.PN_ITS ---
Subjective Date Patient Seen: 06/04/18 Time Patient Seen: 13:29 Interval history: Patient is feeling good today. She has not had any pain medications since last night. She was able to get up with physical therapy and did not have pain. She has not had a bowel movement since admission she has had some MiraLax today. She is eating more today. She is working on taking deep breaths and is able to do so better because she is not having as much trouble pain. She denies any shortness of breath. She denies any chest pain. She denies any abdominal pain. She denies any urinary symptoms. Her back pain is tolerable. Twelve point review of systems is negative other than above Exam Vital Signs (past 8 hours): - 06/04/18 07:15 06/04/18 07:36 06/04/18 10:40 Temperature 97.9 F Pulse Rate 73 Respiratory Rate 20 Blood Pressure 122/61 Pulse Oximetry 95 96 95 06/04/18 11:20 Temperature 97.9 F Pulse Rate 70 Respiratory Rate 18 Blood Pressure 138/69 Pulse Oximetry 100 Oxygen Delivery Method Nasal Cannula Oxygen Flow Rate 2 Narrative Exam Narrative: Alert and oriented x3 Neck is supple without adenopathy Chest: Clear to auscultation with improved air exchange in the bilateral bases left greater than right Cor: Regular rate and rhythm without murmur Abdomen: Positive bowel sounds, soft, nontender, nondistended Extremities: No edema pulses intact Skin: No rashes Objective Labs Result Diagrams: 06/04/18 06:15 06/04/18 06:15 Labs: Laboratory Results - last 24 hr 06/04/18 06/04/18 06:15 06:15 WBC 8.5 RBC 3.43 L Hgb 10.9 L Hct 32.6 L MCV 94.9 MCH 31.7 MCHC 33.3 RDW 12.5 Plt Count 304 Neut % (Auto) 63.0 Lymph % (Auto) 20.8 L [place] % (Auto) 11.6 Eos % (Auto) 3.4 Baso % (Auto) 1.2 Neut # (Auto) 5300 Sodium 137 Potassium 4.0 Chloride 95 L Carbon Dioxide 33 H BUN 8 Creatinine 0.50 L Estimated GFR > 60.0 BUN/Creatinine Ratio 16.0 Glucose 99 Calcium 8.8 Total Bilirubin 0.5 AST 40 H ALT 55 H Alkaline Phosphatase 153 H B-Natriuretic Peptide 133.0 H Total Protein 6.5 Albumin 3.4 L Globulin 3.1 Albumin/Globulin Ratio 1.1 Assessment & Plan Plan: Assessment/Plan Narrative: 83-year-old female status post fall Assessment 1. Vertebral compression fracture and exacerbation of previous sternal fracture pain improved Plan: Continue with PT. Continue with Dilaudid as needed. Continue with brace. Will likely be discharged to skilled care facility tomorrow or on Friday. Continue calcitonin nasal spray Assessment 2. Constipation Plan: MiraLax as needed, prune juice as needed Assessment 3. Hypoxemia suspect multifactorial related to fluid overload with excellent response to diuresis with IV Lasix and empiric antibiotic treatment for suspected secondary bacterial pneumonia. Plan: Will give an additional 20 mg of IV Lasix today. Will continue oral antibiotics. Will continue with RT and supplemental oxygen and wean oxygen as able. Reviewed echo which did not show evidence of heart failure. Shared this with patient Assessment 4. GI prophylaxis Plan: Continue pantoprazole Assessment 5. DVT prophylaxis Plan: Continue Lovenox Assessment 6. Depression stable Plan: Continue citalopram Quality VTE Deep Vein Thrombosis/Pulmonary Embolism Present on Admission: No
--- NOTE | 2018-06-04 13:40 | PT.IPTN ---
Current Diagnoses Anemia in other chronic diseases classified elsewhere (05/29/18) Hypo-osmolality and hyponatremia (05/29/18) Major depressive disorder, recurrent, moderate (05/29/18) Heart failure, unspecified (05/29/18) Hypotension, unspecified (05/29/18) Pneumonia, unspecified organism (05/29/18) Pleural effusion in other conditions classified elsewhere (05/29/18) Acute respiratory failure, unspecified whether with hypoxia or hypercapnia (05/29/18) Age-related osteoporosis with current pathological fracture, unspecified site, initial encounter for fracture (05/29/18) Age-related osteoporosis without current pathological fracture (05/29/18) Urinary tract infection, site not specified (05/29/18) Other chest pain (05/29/18) Wedge compression fracture of second lumbar vertebra, initial encounter for closed fracture (05/29/18) Physical Therapy Treatment Note M2 PT-IP Current Condition Start: 05/28/18 11:16 Freq: NEEDED Status: Active Protocol: Document 05/28/18 15:35 AB (Rec: 05/28/18 16:29 AB [id number]) Physical Therapy Current Condition Current Condition Evaluation Date 05/28/18 Treatment Diagnosis L2 compression fx; difficulty in walking Onset Date 05/28/18 Precautions Lumbar Precautions Log Roll No Twisting Limit Bending Lifting Restriction of 10 lbs Brace TLSO brace: nurse got a verbal order from pt's doctor that TLSO on when out of bed but can be when in bed. 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 Therapy Pain Assessment Pain When Pain Assessed At Rest Pain Present Pain Present Pain Reported Location Lower Back Intensity 2 Scale Used Numeric (1 - 10) Pain Management Techniques Re-positioning M4 PT-IP Mobility and Gait Start: 05/28/18 11:16 Freq: NEEDED Status: Active Protocol: Document 06/04/18 13:40 GGD (Rec: 06/04/18 14:35 GGD [id number]) PT-Bed Mobility Assessment Rolling Type of Rolling Roll to Left Level of Assist Standby Assistance 1 Person Assistance Supine to Sit Supine to Sit Contact Guard Assistance 1 Person Assistance Bedrails Sit to Supine Sit to Supine Contact Guard Assistance 1 Person Assistance Scooting Scooting to Edge of Bed Standby Assistance Scooting Up and Down in Bed Standby Assistance PT-Transfer Assessment Sit to and From Stand Sit to and from Stand Contact Guard Assistance 1 Person Assistance Equipment Transfer Assistive Device Gait Belt Front Wheeled Walker Orthotic/Prosthetic Devices or Brace: Yes Transfers Transfer Destination Bed Transfer Ability Level of Assist Contact Guard Assistance 1 Person Assistance Gait Assessment Gait Gait Assistance Required: Contact Guard Assist 1 Person Assist Distance (Feet) 75 Assistive Devices Assistive Device Gait Belt Front Wheeled Walker Orthotic/Prosthetic Devices or Brace: Yes Gait Deviations General Gait Pattern Decreased Stride Length Decreased Feet Clearance Flexed Trunk Narrow Based Gait Factors Limiting Gait Function Factors Limiting Gait Function Decreased Activity Tolerance Decreased Strength Pain Poor Balance Poor Safety Awareness Respiratory Distress Comments Gait Comments O2 at rest on 2 L 98% with activity 88-93% M5 PT-IP Objective Assessments Start: 05/28/18 11:16 Freq: NEEDED Status: Active Protocol: Document 05/28/18 10:45 AB (Rec: 05/28/18 11:33 AB [id number]) Orientation Orientation/Cognition Level of Alertness Alert Orientation Name Age Birthday Month Date Year Day of Week Place Situation Safety Awareness Understands Safety Issues Gross Range of Motion Lower Extremity ROM Assessment Within Functional Limits Strength Lower Extremity Strength Assessment Within Functional Limits Sensation Assessment Sensation Gross Sensation WNL M6 PT-IP Treatment Start: 05/28/18 11:16 Freq: NEEDED Status: Active Protocol: Document 05/31/18 10:45 CLB (Rec: 05/31/18 12:40 CLB [id number]) Physical Therapy Treatment Education Education Provided Precautions Safety M7 PT-IP Assessment and Plan Start: 05/28/18 11:16 Freq: NEEDED Status: Active Protocol: Document 06/04/18 13:40 GGD (Rec: 06/04/18 14:35 GGD [id number]) PT Summary Assessment and Plan Summary Assessment Summary Pt improving with mobility. She had better pain control with mobility. She has decrease in O2 to 88%, but quickly recovers. She would benefit from SNF to improve mobility, gait and balance. Frequency of Treatment Frequency Of Treatment Twice a Day Treatment Plan Physical Therapy Treatment Plan Bed Mobility Training Transfer Training Gait Training Therapeutic Exercise Balance Retraining Post Op Education Discharge Planning Hot or Cold Pack Neuromuscular Re-ed Coordination Retraining Manual Therapy Other Recommendations and Next Treatment Progress gait, monitor O2 Focus Recommendations To Nursing Amount of Assist Needed 1 Person Assist Discharge Recommendations PT Discharge Recommendations SNF Rehab
[2018-06-04] MEDS: FUROSEMIDE 20 MG/2 ML VIAL IV (14:38)
--- NOTE | 2018-06-04 19:30 | PC.NURSE ---
Pt lying quietly in bed, reports comfortable, denies Herbert, pain, and nausea. 94% 1L nc, LS mild course bases bilat, right upper wheezes moved with coughing. Enjoys popcicles, waiting for family to bring turkey dinner and visit. Call light in reach, bed alarm on, no further needs at this time.
[2018-06-04] MEDS: HYDROMORPHONE 2 MG TABLET PO (21:09)
[2018-06-04] MEDS: PANTOPRAZOLE 40 MG TABLET PO (21:10)
[2018-06-05 04:00] VITALS: BP 127/65; PULSE 77; RESP 18; TEMP 36.5; O2SAT 95
[2018-06-05 07:27] LABS: Add Manual Diff / Slide Review NO; Basophils Percent Auto 1.4 % (0-2); Eosinophils Percent Auto 4.9 % (2-4); Hematocrit 34.3 % (36-46); Hemoglobin 11.3 g/dL (12.0-16.0); Mean Corpuscular Hemoglobin 31.1 PG (26-34); Mean Corpuscular Volume 94.4 fL (80-100); Monocytes Percent Auto 13.5 % (3-14); Neutrophils Absolute Auto 4900 /uL (3000-5900); Neutrophils Percent Auto 54.2 % (50-75); Platelet Count 354 X10^3/uL (150-400); Red Blood Cell Count 3.63 X10^6/uL (4.0-5.2); Red Cell Distribution Width 12.7 % (11.6-14.8)
[2018-06-05 07:43] LABS: Alanine Aminotransferase 51 IU/L (9-52); Albumin 3.6 g/dL (3.5-5.0); Albumin Globulin Ratio 1.2 (1.0-2.8); Alkaline Phosphatase 146 U/L (38-126); Aspartate Aminotransferase 39 IU/L (14-36); Bilirubin Total 0.4 mg/dL (0.2-1.3); Blood Urea Nitrogen 12 mg/dL (7-17); Calcium 8.9 mg/dL (8.4-10.2); Carbon Dioxide 32 mmol/L (22-32); Chloride 96 mmol/L (98-107); Estimated Glomerular Filt Rate > 60.0 mL/min (>60); Glucose 94 mg/dL (80-110); HEMOLYSIS < 15 (0-50); Potassium 4.5 mmol/L (3.4-5.1); Sodium 137 mmol/L (137-145); Total Protein 6.6 g/dL (6.3-8.2)
[2018-06-05 08:00] VITALS: BP 133/67; PULSE 67; RESP 19; TEMP 36.6; O2SAT 96
[2018-06-05 09:09] VITALS: O2SAT 94
[2018-06-05] MEDS: CALCITONIN,SALMON, NASAL SPRAY 1 SPRAYS NASAL (10:12)
[2018-06-05] MEDS: LIDOCAINE PATCH 1 EACH ADH..PATCH TOP (10:13)
[2018-06-05] MEDS: BISACODYL 10 MG SUPP PR (10:13)
[2018-06-05] MEDS: ENOXAPARIN 40 MG/0.4 ML SYRINGE SUBCUT (10:13)
[2018-06-05] MEDS: cefUROXime 250 MG TABLET 500 MG PO (10:15)
[2018-06-05] MEDS: HYDROMORPHONE 2 MG TABLET PO (10:15)
[2018-06-05] MEDS: FUROSEMIDE 20 MG TABLET PO (10:15)
[2018-06-05] MEDS: CITALOPRAM 20 MG TABLET PO (10:15)
[2018-06-05 10:28] VITALS: O2SAT 94
--- NOTE | 2018-06-05 11:41 | PT.IPTN ---
Current Diagnoses Anemia in other chronic diseases classified elsewhere (05/29/18) Hypo-osmolality and hyponatremia (05/29/18) Major depressive disorder, recurrent, moderate (05/29/18) Heart failure, unspecified (05/29/18) Hypotension, unspecified (05/29/18) Pneumonia, unspecified organism (05/29/18) Pleural effusion in other conditions classified elsewhere (05/29/18) Acute respiratory failure, unspecified whether with hypoxia or hypercapnia (05/29/18) Age-related osteoporosis with current pathological fracture, unspecified site, initial encounter for fracture (05/29/18) Age-related osteoporosis without current pathological fracture (05/29/18) Urinary tract infection, site not specified (05/29/18) Other chest pain (05/29/18) Wedge compression fracture of second lumbar vertebra, initial encounter for closed fracture (05/29/18) Physical Therapy Treatment Note M2 PT-IP Current Condition Start: 05/28/18 11:16 Freq: NEEDED Status: Active Protocol: Document 05/28/18 15:35 AB (Rec: 05/28/18 16:29 AB [id number]) Physical Therapy Current Condition Current Condition Evaluation Date 05/28/18 Treatment Diagnosis L2 compression fx; difficulty in walking Onset Date 05/28/18 Precautions Lumbar Precautions Log Roll No Twisting Limit Bending Lifting Restriction of 10 lbs Brace TLSO brace: nurse got a verbal order from pt's doctor that TLSO on when out of bed but can be when in bed. Other Precautions BP M3 PT-IP Subjective Start: 05/28/18 11:16 Freq: NEEDED Status: Active Protocol: Document 06/05/18 11:00 AMB (Rec: 06/05/18 11:41 AMB [id number]) Subjective Physical Therapy Visit Type Type Treatment Note Visit Start Time 11:00 Visit Stop Time 11:20 Total Visit Minutes 20 Number of STRIPPER SOFT PLASTIC Visits 0 Physical Therapy Visit Comments Patient Comments Pt has just finished bowel movement from suppository, but is feeling ok. Therapy Pain Assessment Pain When Pain Assessed At Rest Pain Present Pain Present Pain Reported Location Lower Back Intensity 2 Scale Used Numeric (1 - 10) M4 PT-IP Mobility and Gait Start: 05/28/18 11:16 Freq: NEEDED Status: Active Protocol: Document 06/05/18 11:00 AMB (Rec: 06/05/18 11:41 AMB [id number]) PT-Bed Mobility Assessment Rolling Type of Rolling Roll to Left Level of Assist Standby Assistance Supine to Sit Supine to Sit Contact Guard Assistance Sit to Supine Sit to Supine Minimal Assistance PT-Transfer Assessment Sit to and From Stand Sit to and from Stand Standby Assistance Equipment Transfer Assistive Device Gait Belt Front Wheeled Walker Orthotic/Prosthetic Devices or Brace: Yes Transfers Transfer Destination Bed Transfer Ability Level of Assist Contact Guard Assistance Gait Assessment Gait Gait Assistance Required: Contact Guard Assist Distance (Feet) 200 Assistive Devices Assistive Device Gait Belt Front Wheeled Walker Orthotic/Prosthetic Devices or Brace: Yes Gait Deviations General Gait Pattern Decreased Stride Length Flexed Trunk Factors Limiting Gait Function Factors Limiting Gait Function Decreased Activity Tolerance Decreased Strength Pain Comments Gait Comments On room air: SpO2 92-94% at rest, dropped to 90-88% with ambulation. Pt did not feel short of breath. M5 PT-IP Objective Assessments Start: 05/28/18 11:16 Freq: NEEDED Status: Active Protocol: Document 05/28/18 10:45 AB (Rec: 05/28/18 11:33 AB [id number]) Orientation Orientation/Cognition Level of Alertness Alert Orientation Name Age Birthday Month Date Year Day of Week Place Situation Safety Awareness Understands Safety Issues Gross Range of Motion Lower Extremity ROM Assessment Within Functional Limits Strength Lower Extremity Strength Assessment Within Functional Limits Sensation Assessment Sensation Gross Sensation WNL M6 PT-IP Treatment Start: 05/28/18 11:16 Freq: NEEDED Status: Active Protocol: Document 05/31/18 10:45 CLB (Rec: 05/31/18 12:40 CLB [id number]) Physical Therapy Treatment Education Education Provided Precautions Safety M7 PT-IP Assessment and Plan Start: 05/28/18 11:16 Freq: NEEDED Status: Active Protocol: Document 06/05/18 11:00 AMB (Rec: 06/05/18 11:41 AMB [id number]) PT Summary Assessment and Plan Summary Assessment Summary Pt improving with O2 during activity and tolerance to gait . Did need Wilber to get LE into bed, but otherwise improving well. Frequency of Treatment Frequency Of Treatment Twice a Day Treatment Plan Physical Therapy Treatment Plan Bed Mobility Training Transfer Training Gait Training Therapeutic Exercise Balance Retraining Post Op Education Discharge Planning Hot or Cold Pack Neuromuscular Re-ed Coordination Retraining Manual Therapy Other Recommendations and Next Treatment Progress gait, monitor O2 Focus Recommendations To Nursing Amount of Assist Needed 1 Person Assist Discharge Recommendations PT Discharge Recommendations SNF Rehab
--- NOTE | 2018-06-05 13:00 | OT.IP.TRT ---
Current Diagnoses Anemia in other chronic diseases classified elsewhere (05/29/18) Hypo-osmolality and hyponatremia (05/29/18) Major depressive disorder, recurrent, moderate (05/29/18) Heart failure, unspecified (05/29/18) Hypotension, unspecified (05/29/18) Pneumonia, unspecified organism (05/29/18) Pleural effusion in other conditions classified elsewhere (05/29/18) Acute respiratory failure, unspecified whether with hypoxia or hypercapnia (05/29/18) Age-related osteoporosis with current pathological fracture, unspecified site, initial encounter for fracture (05/29/18) Age-related osteoporosis without current pathological fracture (05/29/18) Urinary tract infection, site not specified (05/29/18) Other chest pain (05/29/18) Wedge compression fracture of second lumbar vertebra, initial encounter for closed fracture (05/29/18) Occupational Therapy Treatment Note M2 OT-IP Current Condition Start: 05/29/18 15:09 Freq: Status: Active Protocol: Document 05/30/18 12:19 [facility] (Rec: 05/30/18 12:41 [facility] [id number]) Occupational Therapy Current Condition Current Condition Evaluation Date 05/30/18 Treatment Diagnosis L2 compression fx Diagnosis Onset Date 05/28/18 Post Operative Precautions Lumbar Precautions Log Roll No Twisting Limit Bending Lifting Restriction of 10 lbs Other Precautions BP, to wear TLSO when out of bed M3 OT- IP Subjective and Pain Start: 05/29/18 15:09 Freq: Status: Active Protocol: Document 06/05/18 13:00 PJParas (Rec: 06/05/18 13:37 PJ [id number]) OT- Subjective Occupational Therapy Visit Type Type Administrative Note Visit Start Time 13:00 Notes Attempted to see pt x2, but pt just had suppository, then later had nausea and abdominal cramping so unable to participate. Pain control appears better today. Will attempt again in AM.
--- NOTE | 2018-06-05 13:46 | CM.DPC ---
Addendum entered by Alida Hirsch LPN 06/05/18 15:13: All is now confirmed for [facility], 1600 pickup/ w/c van. DC summary and medication list plus scripts have been faxed. Handed these off to ИВАН Huff who is calling report before giving case to leanna Cabrera. Pt states she is agreeable to the d/c today after talking it over with Dr. Zavala. Original Note: Addendum entered by Alida Hirsch LPN 06/05/18 14:37: ИВАН Huff is updated. She confirms that she was able to wean pt off the o2 successfully today. Dr. Zavala is aware that [facility] can accept with 02 if need be. Original Note: Addendum entered by Alida Hirsch LPN 06/05/18 14:27: Spoke with Maryann/[facility] can accept pt at 1600 if all is ready by then. They have van transport. Spoke then with Dr. Zavala, who had just arrived in ICU to see a patient. She agrees to see pt next and, if she has been weaned off o2 today she says she will likely do the d/c. States will need help with the snf order process and RN coordinator Lis Kaye is alerted to same. Will also follow closely to make sure all in completed as per snf order process. Original Note: DCP: continued: EMR reviewed and note that Dr. Zavala did see pt yesterday afternnoon and her plan was for a d/c to [facility] either today or tomorrow.. Pt has been working with PT and OT and improved in functional abilities as well as pain management. Checked in with ИВАН Hopper who confirms Dr. Zavala has not been in yet today but said no concerns were noted re pt today by nursing. Checked in with Maryann/[facility]. She confirms they are ready for pt but says that due to lateness of the hour and fact that there is no dc order yet she will have to check in with her team. [facility] is admitting 4 patients already today and she needs to determine if another admission nurse will be available. [facility] also needs to set up a van transport for pt. Requested that she give us a time cut off for today for consideration of an admit and she readily agrees to call back with an update as soon as she discusses with the [facility] team. Met then with pt. She is found lying in bed, emesis bag at hand. Confirms that she has been improving and states she expects she will probable be d/c'd tomorrow. Explained that [facility] is keeping the bed for her and just waiting to hear from the physician that she is ready to go. PASRR: completed and faxed to [facility] efax. P: dc to [facility] either this afternoon/see above specifics or tomorrow. DCP team will be following.
--- NOTE | 2018-06-05 14:02 | PC.NURSE ---
Addendum entered by Daria Mcpherson R.N. 06/05/18 15:47: Report called to [facility] at 1539, spoke with Scarlett and gave update on current pt status. Original Note: Day Shift- Pt A&OX4, pleasant and cooperative. Dilaudid po prn given X1 at 1020 for 3-4/10 pain to lower back and 1-2/10 to sternum where lidocaine patch is placed daily. Pt OOB to [facility] and ambulated in halls with PT, pt preferred to not use TLSO brace. CMS+. Biscodyl prn supp given at 1015, pt stated feeling uncomfortable. Pt had 2 episodes of scant pieces of soft BM. Denies nausea, tolerating diet. Prt repositions herself in bed. High fall risk precautions in place, bed alarm on.
[2018-06-05] MEDS: POLYETHYLENE GLYCOL 3350 17 GM POWD.PACK PO (14:31)
--- NOTE | 2018-06-05 14:50 | P.DS_ITS ---
History of Present Illness Chief complaint: Fall Narrative: This pleasant 83-year-old female well known to me presents to the emergency room via ambulance due to fall with complaints of sternal pain and low back pain and sacral pain. She was monitored in the ER and given Dilaudid for pain but was unable to mobilize due to L1 compression fracture and was admitted to the hospital for further treatment and monitoring. Her workup in the ER consisted of a CT scan of the head which was repeated because there was a concern for possible bleed and repeat CT scan 4 hr later was entirely normal showing only small vessel ischemic changes. She had a CT scan of her cervical spine that did not show acute abnormalities and she had a CT scan of her abdomen and pelvis that showed evidence of an acute mildly displaced L1 compression fracture. This was discussed with the orthopedist on-call doctor Armani. He recommended hospitalization for pain control and recommended she be fitted in an appropriate lumbar brace, MAGI . The patient has continued to have difficulty with getting up due to severe pain as well as feeling lightheaded and weak. She had episode of vomiting. Since this happened at approximately noon she was given Zofran and is currently being given a L of IV fluids because a suspected that she is dehydrated. She is feeling a little bit better. She was able to keep yogurt and 7 up down. She has not had any further vomiting. She has a brace in place and feels that it is comfortable because it is holding her together . Past medical history: 1. Depression 2. Distant history of breast cancer in 1971 3. osteopenia medications: Citalopram 20 mg daily calcium vitamin-D allergies: No known drug allergies past surgical history: 1. 1971 right mastectomy 2. cholecystectomy family history: 1. Sister with hypothyroidism 2. father of bladder cancer, smoker 3. 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 Her sister also lives with her and she has caregiver for her as well. Patient's sons both live in [facility] and she is involved in her grandchildren's lives. They are supportive. Review of systems: 2 weeks ago patient had episode of vomiting and fever and chills which resolved spontaneously. She has had no further symptoms. She did not have any diarrhea. Last bowel movement was yesterday. No change in bowel movements. No abdominal pain. No nausea or vomiting until she fell. She denies any other pain other than the sternum and the sacrum. She denies any headache or visual changes. She denies any urine symptoms. She denies any worsening depression or anxiety. Discharge Providers Date of admission: 05/29/18 15:05 Primary care physician: Chiquis Zavala MD Consults: 05/28/18 01:47 Consult to Physical Therapy Evaluate & Treat Comment: pt admitted L2 compression fx Physician Instructions: Evaluate and Treat 05/28/18 01:48 Consult to Physician Routine Comment: Consulting Provider: Chiquis Zavala Reason for consultation: admission Has provider been notified: Yes 05/28/18 17:24 Consult to Occupational Therapy Evaluate & Treat Comment: Physician Instructions: Evaluate and treat 05/31/18 12:26 Consult to Respiratory Therapy Evaluate & Treat Comment: Physician Instructions: Evaluate and treat 06/02/18 08:39 Consult to Respiratory Therapy Evaluate & Treat Comment: Physician Instructions: Evaluate and treat 06/03/18 14:23 Consult to Respiratory Therapy Evaluate & Treat Comment: Physician Instructions: Evaluate and treat Discharge provider: Chiquis Zavala MD Discharge Date: 06/05/18 Summary Discharge Diagnosis: L2 compression fracture Atelectasis Pleural effusion Pneumonia, community-acquired Hospital Course: Patient sustained a fall off a ladder and developed an L2 compression fracture and were unable to control her pain as an outpatient. She developed nausea vomiting and hypotension and was admitted to the hospital. She was slow to improve. She had difficulty with deep breathing due to previous sternal fracture that was exacerbated by her fall as well as because of her back pain. This she then developed pneumonia secondary to atelectasis caused by inability to deep breathe. CC treated with IV antibiotics azithromycin and ceftriaxone and then transferred over to Ceftin because she received a 5 day course of IV azithromycin. She was also noted to have a pleural effusion and was aggressively diuresed with IV Lasix. Her CT scan she had upper chest showed bilateral pleural effusions and possible underlying pneumonia. No evidence of a PE. She had echo done that showed a normal ejection fraction. After aggressive diuresis her pulmonary function improved and she required less oxygen. At the time of discharge she was stable on room air and O2 sats 93% with ambulation on room air. She was able to walk 200 ft. She developed constipation and did have 1 small loose stool prior to discharge. Her pain was adequately controlled with oral Dilaudid at fairly low doses. She was discharged home on hospital day 9. In stable and improved condition Discharge follow-up a CBC, BMP and chest x-ray on 06/10/2018 and then appointment with me . She was discharged to skilled care facility for Status at Discharge Cognitive/behavioral status at discharge: normal Functional status at discharge: uses cane/walker Overall status at discharge: patient is progressing back to baseline Time Spent with Patient Greater than 30 minutes Exam Vital Signs (past 8 hours): - 06/05/18 08:00 06/05/18 09:09 06/05/18 10:28 Temperature 97.9 F Pulse Rate 67 Respiratory Rate 19 Blood Pressure 133/67 Pulse Oximetry 96 94 94 Oxygen Delivery Method Room Air Oxygen Flow Rate 0 Narrative Exam Narrative: Patient alert and oriented x3 in no apparent distress Vital signs are stable O2 sat with ambulation on room air is 93% HEENT: Unremarkable Neck: Supple Chest: Improved air exchange still with slight decreased breath sounds bibasilar, right greater than left but improved from yesterday Cor: Regular rate and rhythm with distant S1 and S2 Extremities: No edema, pulses intact Abdomen: Positive bowel sounds, soft, nontender, nondistended Objective Labs Result Diagrams: 06/05/18 06:49 06/05/18 05:00 Labs: Laboratory Results - last 24 hr 06/05/18 06/05/18 05:00 06:49 WBC 9.0 RBC 3.63 L Hgb 11.3 L Hct 34.3 L MCV 94.4 MCH 31.1 MCHC 33.0 RDW 12.7 Plt Count 354 Neut % (Auto) 54.2 Lymph % (Auto) 26.0 Burnett % (Auto) 13.5 Eos % (Auto) 4.9 H Baso % (Auto) 1.4 Neut # (Auto) 4900 Sodium 137 Potassium 4.5 Chloride 96 L Carbon Dioxide 32 BUN 12 Creatinine 0.60 Estimated GFR > 60.0 BUN/Creatinine Ratio 20.0 Glucose 94 Calcium 8.9 Total Bilirubin 0.4 AST 39 H ALT 51 Alkaline Phosphatase 146 H Total Protein 6.6 Albumin 3.6 Globulin 3.0 Albumin/Globulin Ratio 1.2 Discharge Plan Discharge Plan Patient Disposition: SNF Transfer to: [facility] Under care of provider: jessica zavala Transportation: Wheelchair Diagnostic studies (x-ray, etc.): cxr pa and lateral on 06/10/2018 Labs: bmp, cbc on 06/10/2018 Consult as needed: Dental, Hearing, Mental health, Podiatry and Vision I certify the postop hospital long term care is medically necessary on a continuing basis for any conditions for which he/ she received care during this hospitalization.: Yes The receiving facility has agreed to accept transfer and provide medical treatment.: Yes Discharge Med Rec/Prescriptions Prescriptions: New cefuroxime axetil 250 mg Tablet 500 mg PO BID Qty: 10 RF: 0 polyethylene glycol 3350 17 gram Powder In Packet 17 gm PO DAILY PRN (Reason: Constipation) Qty: 30 RF: 0 hydromorphone 2 mg Tablet 2 mg PO Q4HR PRN (Reason: Pain, Moderate (4-6)) Qty: 30 RF: 0 citalopram 20 mg Tablet 20 mg PO DAILY Qty: 30 RF: 0 calcitonin (salmon) 200 unit/actuation [place],Non-Aerosol 1 spry Intranasal DAILY Qty: 1 RF: 0 bisacodyl 10 mg Suppository 10 mg NC DAILY PRN (Reason: Constipation) Qty: 10 RF: 0 furosemide 20 mg Tablet 20 mg PO DAILY Qty: 10 RF: 0 ibuprofen 600 mg Tablet 600 mg PO Q6HR PRN (Reason: As Needed For Fever/Mild Pain) Qty: 60 RF: 0 Follow up/Referrals: Chiquis Zavala MD [Primary Care Provider] - Discharge Health Status Brief summary of current health status: patient s/p fall and lumbar vertebral compression fracture complicated by pneumonia and pleural effusion Multidrug resistant organism: No MDRO Precautions: [place] Provider Discharge Instructions Diet: Diet as Tolerated Liquid consistency: Normal/Thin Food texture: Regular Activity: as tolerated Oxygen: prn Skin/Wound/Dressing Care Report to your healthcare provider any signs of infection, such as:: chills, fever, night sweats, increased pain and unusual drainage Special Rehabilitation Services Reason for rehabilitation: Recovery r/t decondition Rehab type: Physical therapy and Occupational therapy Visit Report/Discharge Packet Instructions: Vertebral Compression Fracture, DI for Pneumonia -- Adult, DI for Constipation, How to Prevent Falls Discharge Data Primary Care Provider: Chiquis Zavala Attending Provider: Chiquis Zavala Admit Date/Time: 05/29/18 15:05 Discharges patient from system. Discharge Date/Time: 06/05/18 16:19 Quality VTE Deep Vein Thrombosis/Pulmonary Embolism Present on Admission: No
--- NOTE | 2018-06-05 14:55 | PT.IPTN ---
Current Diagnoses Anemia in other chronic diseases classified elsewhere (05/29/18) Hypo-osmolality and hyponatremia (05/29/18) Major depressive disorder, recurrent, moderate (05/29/18) Heart failure, unspecified (05/29/18) Hypotension, unspecified (05/29/18) Pneumonia, unspecified organism (05/29/18) Pleural effusion in other conditions classified elsewhere (05/29/18) Acute respiratory failure, unspecified whether with hypoxia or hypercapnia (05/29/18) Age-related osteoporosis with current pathological fracture, unspecified site, initial encounter for fracture (05/29/18) Age-related osteoporosis without current pathological fracture (05/29/18) Urinary tract infection, site not specified (05/29/18) Other chest pain (05/29/18) Wedge compression fracture of second lumbar vertebra, initial encounter for closed fracture (05/29/18) Physical Therapy Treatment Note M2 PT-IP Current Condition Start: 05/28/18 11:16 Freq: NEEDED Status: Active Protocol: Document 05/28/18 15:35 AB (Rec: 05/28/18 16:29 AB [id number]) Physical Therapy Current Condition Current Condition Evaluation Date 05/28/18 Treatment Diagnosis L2 compression fx; difficulty in walking Onset Date 05/28/18 Precautions Lumbar Precautions Log Roll No Twisting Limit Bending Lifting Restriction of 10 lbs Brace TLSO brace: nurse got a verbal order from pt's doctor that TLSO on when out of bed but can be when in bed. Other Precautions BP M3 PT-IP Subjective Start: 05/28/18 11:16 Freq: NEEDED Status: Active Protocol: Document 06/05/18 13:57 TAPAN (Rec: 06/05/18 14:55 TAPAN [id number]) Subjective Physical Therapy Visit Type Type Treatment Note Visit Start Time 13:57 Visit Stop Time 14:15 Total Visit Minutes 18 Physical Therapy Visit Comments Patient Comments Pt in bed resting with hot pack on abdoomen. States she needs to go to the commode as soon as possible. Therapy Pain Assessment Pain When Pain Assessed At Rest Pain Present Pain Present Pain Reported M4 PT-IP Mobility and Gait Start: 05/28/18 11:16 Freq: NEEDED Status: Active Protocol: Document 06/05/18 13:57 TAPAN (Rec: 06/05/18 14:55 LJ [id number]) PT-Bed Mobility Assessment Rolling Type of Rolling Roll to Left Level of Assist Standby Assistance Supine to Sit Supine to Sit Standby Assistance Sit to Supine Sit to Supine Standby Assistance Scooting Scooting to Edge of Bed Standby Assistance Scooting Up and Down in Bed Standby Assistance PT-Transfer Assessment Sit to and From Stand Sit to and from Stand Standby Assistance Equipment Transfer Assistive Device Front Wheeled Walker Transfers Transfer Destination Bedside Commode Transfer Ability Level of Assist Contact Guard Assistance Gait Assessment Comments Gait Comments Pt unwilling at this time to ambulate. M5 PT-IP Objective Assessments Start: 05/28/18 11:16 Freq: NEEDED Status: Active Protocol: Document 05/28/18 10:45 AB (Rec: 05/28/18 11:33 AB [id number]) Orientation Orientation/Cognition Level of Alertness Alert Orientation Name Age Birthday Month Date Year Day of Week Place Situation Safety Awareness Understands Safety Issues Gross Range of Motion Lower Extremity ROM Assessment Within Functional Limits Strength Lower Extremity Strength Assessment Within Functional Limits Sensation Assessment Sensation Gross Sensation WNL M6 PT-IP Treatment Start: 05/28/18 11:16 Freq: NEEDED Status: Active Protocol: Document 05/31/18 10:45 CLB (Rec: 05/31/18 12:40 CLB [id number]) Physical Therapy Treatment Education Education Provided Precautions Safety M7 PT-IP Assessment and Plan Start: 05/28/18 11:16 Freq: NEEDED Status: Active Protocol: Document 06/05/18 13:57 LJ (Rec: 06/05/18 14:55 LJ [id number]) PT Summary Assessment and Plan Summary Assessment Summary Pt reports she is fatigued getting onto the commode and is unable to walk. Pt did not have any shortness of breath during the transfer. DRIER UNLOADER came into room and stayed with patient to assist getting back into bed. Frequency of Treatment Frequency Of Treatment Twice a Day Treatment Plan Physical Therapy Treatment Plan Bed Mobility Training Transfer Training Gait Training Therapeutic Exercise Balance Retraining Post Op Education Discharge Planning Hot or Cold Pack Neuromuscular Re-ed Coordination Retraining Manual Therapy Other Recommendations and Next Treatment Progress gait, monitor O2 Focus Recommendations To Nursing Amount of Assist Needed Standby Assistance Discharge Recommendations PT Discharge Recommendations SNF Rehab
--- NOTE | 2018-06-05 14:58 | PT.IPTN ---
Current Diagnoses Anemia in other chronic diseases classified elsewhere (05/29/18) Hypo-osmolality and hyponatremia (05/29/18) Major depressive disorder, recurrent, moderate (05/29/18) Heart failure, unspecified (05/29/18) Hypotension, unspecified (05/29/18) Pneumonia, unspecified organism (05/29/18) Pleural effusion in other conditions classified elsewhere (05/29/18) Acute respiratory failure, unspecified whether with hypoxia or hypercapnia (05/29/18) Age-related osteoporosis with current pathological fracture, unspecified site, initial encounter for fracture (05/29/18) Age-related osteoporosis without current pathological fracture (05/29/18) Urinary tract infection, site not specified (05/29/18) Other chest pain (05/29/18) Wedge compression fracture of second lumbar vertebra, initial encounter for closed fracture (05/29/18) Physical Therapy Treatment Note M2 PT-IP Current Condition Start: 05/28/18 11:16 Freq: NEEDED Status: Active Protocol: Document 05/28/18 15:35 AB (Rec: 05/28/18 16:29 AB [id number]) Physical Therapy Current Condition Current Condition Evaluation Date 05/28/18 Treatment Diagnosis L2 compression fx; difficulty in walking Onset Date 05/28/18 Precautions Lumbar Precautions Log Roll No Twisting Limit Bending Lifting Restriction of 10 lbs Brace TLSO brace: nurse got a verbal order from pt's doctor that TLSO on when out of bed but can be when in bed. Other Precautions BP M3 PT-IP Subjective Start: 05/28/18 11:16 Freq: NEEDED Status: Active Protocol: Document 06/05/18 13:57 TAPAN (Rec: 06/05/18 14:55 TAPAN [id number]) Subjective Physical Therapy Visit Type Type Treatment Note Visit Start Time 13:57 Visit Stop Time 14:15 Total Visit Minutes 18 Physical Therapy Visit Comments Patient Comments Pt in bed resting with hot pack on abdoomen. States she needs to go to the commode as soon as possible. Therapy Pain Assessment Pain When Pain Assessed At Rest Pain Present Pain Present Pain Reported M4 PT-IP Mobility and Gait Start: 05/28/18 11:16 Freq: NEEDED Status: Active Protocol: Document 06/05/18 13:57 TAPAN (Rec: 06/05/18 14:55 LJ [id number]) PT-Bed Mobility Assessment Rolling Type of Rolling Roll to Left Level of Assist Standby Assistance Supine to Sit Supine to Sit Standby Assistance Sit to Supine Sit to Supine Standby Assistance Scooting Scooting to Edge of Bed Standby Assistance Scooting Up and Down in Bed Standby Assistance PT-Transfer Assessment Sit to and From Stand Sit to and from Stand Standby Assistance Equipment Transfer Assistive Device Front Wheeled Walker Transfers Transfer Destination Bedside Commode Transfer Ability Level of Assist Contact Guard Assistance Gait Assessment Comments Gait Comments Pt unwilling at this time to ambulate. M5 PT-IP Objective Assessments Start: 05/28/18 11:16 Freq: NEEDED Status: Active Protocol: Document 05/28/18 10:45 AB (Rec: 05/28/18 11:33 AB [id number]) Orientation Orientation/Cognition Level of Alertness Alert Orientation Name Age Birthday Month Date Year Day of Week Place Situation Safety Awareness Understands Safety Issues Gross Range of Motion Lower Extremity ROM Assessment Within Functional Limits Strength Lower Extremity Strength Assessment Within Functional Limits Sensation Assessment Sensation Gross Sensation WNL M6 PT-IP Treatment Start: 05/28/18 11:16 Freq: NEEDED Status: Active Protocol: Document 05/31/18 10:45 CLB (Rec: 05/31/18 12:40 CLB [id number]) Physical Therapy Treatment Education Education Provided Precautions Safety M7 PT-IP Assessment and Plan Start: 05/28/18 11:16 Freq: NEEDED Status: Active Protocol: Document 06/05/18 13:57 LJ (Rec: 06/05/18 14:55 LJ [id number]) PT Summary Assessment and Plan Summary Assessment Summary Pt reports she is fatigued getting onto the commode and is unable to walk. Pt did not have any shortness of breath during the transfer. SET UP MECH[employer]IC HEADING MACHINES came into room and stayed with patient to assist getting back into bed. Frequency of Treatment Frequency Of Treatment Twice a Day Treatment Plan Physical Therapy Treatment Plan Bed Mobility Training Transfer Training Gait Training Therapeutic Exercise Balance Retraining Post Op Education Discharge Planning Hot or Cold Pack Neuromuscular Re-ed Coordination Retraining Manual Therapy Other Recommendations and Next Treatment Progress gait, monitor O2 Focus Recommendations To Nursing Amount of Assist Needed Standby Assistance Discharge Recommendations PT Discharge Recommendations SNF Rehab
== END 2018-06-05 16:19 | DRG 542 ==
LOC: ED 05-28 01:48 → AC 05-28 01:58
PROVIDERS: Family Medicine; Admitting Provider Family Medicine; Emergency Provider Emergency Medicine; Family Provider Family Medicine; PCP Family Medicine; Visit Provider Family Medicine
DX: M80.08XA Age-related osteoporosis with current pathological fracture, vertebra(e), initial encounter for fracture (principal); J96.01 Acute respiratory failure with hypoxia; J18.9 Pneumonia, unspecified organism; F33.8 Other recurrent depressive disorders; E87.1 Hypo-osmolality and hyponatremia; J90 Pleural effusion, not elsewhere classified; J98.11 Atelectasis; W11.XXXA Fall on and from ladder, initial encounter; Y92.008 Other place in unspecified non-institutional (private) residence as the place of occurrence of the external cause; E86.0 Dehydration; S20.219A Contusion of unspecified front wall of thorax, initial encounter; D64.9 Anemia, unspecified; R11.2 Nausea with vomiting, unspecified; M85.80 Other specified disorders of bone density and structure, unspecified site; E87.70 Fluid overload, unspecified; I95.9 Hypotension, unspecified; K59.00 Constipation, unspecified
CPT/HCPCS: 36415; 70450; 71045; 71046; 71260; 72125; 74177; 80048; 80053; 80076; 81001; 82150; 82607; 82746; 83540; 83550; 83880; 84484; 85025; 87086; 93005; 93306; 94760; 96361; 96374; 96375; 97116; 97162; 97166; 97530; 97535; 99285; G0378; C9113; J1170; J1650; J1885; J1940; J2405; Q9967

== ENCOUNTER → 2018-07-01 13:31 | Outpatient (CLI) | payer MEDICARE, SELFPAY ==
[2018-06-02 16:42] VITALS: BMI 23.1
--- NOTE | 2018-07-01 | DI.RAD.S_ITS ---
PROCEDURE: XR LUMBAR SPINE 2-3V INDICATIONS: LOW BACK PAIN TECHNIQUE: 3 views of the lumbar spine were acquired. COMPARISON: [facility], CT, CT ABDOMEN PELVIS W CON, 05/27/2018, 18:40. FINDINGS: Bones: 5 [id number] vertebrae are present. There is mild levoscoliosis centered at L3 level. Chronic appearing anterior wedge compression deformity at L1 level is again seen, not significantly changed from previous study. There is interval further loss of L2 vertebral body height with now approximately 30% loss of L2 vertebral body height anteriorly. Degenerative disc disease throughout lumbar spine is seen. No suspicious bony lesions. Soft tissues: Overlying bowel gas pattern is normal. No suspicious soft tissue calcifications. IMPRESSION: Interval further decompression involving superior endplate of L2 vertebral body with now up to 30% loss of L2 vertebral body height anteriorly. Chronic anterior wedge compression at L1 level unchanged from previous study. Degenerative disc disease throughout lumbar spine. Dictated by: Collin Lomeli M.D. on 07/01/2018 at 14:32 Approved by: Collin Lomeli M.D. on 07/01/2018 at 14:42
== END ==
PROVIDERS: Family Provider Family Medicine; PCP Family Medicine; Visit Provider Family Medicine
DX: M54.5 Low back pain (principal); M51.36 Other intervertebral disc degeneration, lumbar region
CPT/HCPCS: 72100

== ENCOUNTER → 2018-12-30 07:41 | Outpatient (CLI) | payer MEDICARE, SELFPAY ==
[2018-06-02 16:42] VITALS: BMI 23.1
--- NOTE | 2018-12-30 07:48 | DI.MG.S_ITS ---
UNILATERAL LEFT DIGITAL SCREENING MAMMOGRAM 3D/2D WITH CAD POST MASTECTOMY: 12/30/2018 CLINICAL: Routine screening. Personal history of right breast cancer. Family history of breast cancer. Comparison is made to exams dated: 11/29/2017 mammogram, 11/18/2016 mammogram, 07/18/2014 mammogram, 01/11/2009 mammogram, 04/12/2013 mammogram, and 04/09/2012 mammogram - [facility]. There are scattered fibroglandular elements in left breast. Current study was also evaluated with a Computer Aided Detection (CAD) system. No significant masses, calcifications, or other findings are seen in the breast. There has been no significant interval change. IMPRESSION: NEGATIVE There is no mammographic evidence of malignancy. A 1 year screening mammogram is recommended. This exam was interpreted at Station ID: [id number]. NOTE: For mammograms, a report in lay terms will be sent to the patient. Approximately 15% of breast malignancies will not be visualized mammographically. In the management of a palpable breast mass, a negative mammogram must not discourage biopsy of a clinically suspicious lesion. Electronically Signed By: Gatito mckeon/eileen:12/30/2018 15:16:55 letter sent: Normal Exam ACR BI-RADS Category 1: Negative [id number]
== END ==
PROVIDERS: PCP Family Medicine; Visit Provider Family Medicine
DX: Z12.31 Encounter for screening mammogram for malignant neoplasm of breast (principal); Z85.3 Personal history of malignant neoplasm of breast; Z80.3 Family history of malignant neoplasm of breast
CPT/HCPCS: 77063; 77067

== ENCOUNTER → 2019-04-30 15:40 | Outpatient (CLI) | payer MEDICARE, SELFPAY ==
[2018-06-02 16:42] VITALS: BMI 23.1
--- NOTE | 2019-04-30 | DI.ECHO.S_ITS ---
[facility]---------+ [facility] +---------+ : : [address] : : : : [address] : : : : Phone: [phone]+ Echocardiogram Report + + :Name: FERNANDO EUCEDA Study Date: 04/30/2019 Height: 66 in : :[facility] Weight: 132 lb : : Gender: Female BSA: 1.7 m2 : :: 1935 Age: 84 yrs BP: 148/80 mmHg: :Reason For Study: Hypotension : : Performed By: Ayanna Overton : :Referring: LAUREN GANN : + + Interpretation Summary Normal left ventricle size with ejection fraction 60-65%. Severely dilated left atrium. Mild mitral annular calcification. Moderate mitral regurgitation, eccentrically directed. Moderate tricuspid regurgitation. Comparison is made with the echocardiogram of 05-15-18, mitral regurgitation has worsen. Procedure: A two-dimensional transthoracic echocardiogram with color flow and Doppler was performed. The study quality was technically adequate. Comparison is made with the echocardiogram of 05-15-18. The patient was in normal sinus rhythm during the exam. Left Ventricle: The left ventricle is normal in size. There is normal left ventricular wall thickness. The ejection fraction is estimated to be 60-65%. There are no focal wall motion abnormalities. Right Ventricle: The right ventricle grossly appears normal in size with probable normal systolic function. Atria: The left atrium is severely dilated. Right atrial size is normal. The interatrial septum is intact with no evidence for an atrial septal defect. Mitral Valve: The mitral valve leaflets appear borderline thickened, but open well. There is mild mitral annular calcification. There is moderate mitral regurgitation. The mitral regurgitant jet is eccentrically directed. Aortic Valve: The aortic valve is trileaflet. The aortic valve opens well. There is trace aortic regurgitation. Tricuspid Valve: The tricuspid valve leaflets are thin and pliable. There is moderate tricuspid regurgitation. The right ventricular systolic pressure is estimated to be at least 32 mmHg based on an estimated right atrial pressure of 3 mm Hg. Pulmonic Valve: The pulmonic valve is normal in structure and function. There is trace pulmonic regurgitation. Great Vessels: The aortic root is normal size. The dimensions of the ascending aorta are normal. The aortic arch is at the upper limits of normal in size. The IVC is of normal diameter and collapses greater than 50% with a sniff. This suggests a low right atrial pressure of 3 mm Hg. Pericardium/ Pleura There is no pericardial effusion. There is no pleural effusion. MMode/2D Measurements & Calculations LVIDd: 5.0 cm Ao root diam: 3.0 cm LVIDs: 2.9 cm Aortic Jxn: 2.4 cm FS: 41.2 % asc Aorta Diam: 3.1 cm EPSS: 0.67 cm Ao Arch Diam (Prox Trans): 2.3 cm IVSd: 0.88 cm LVPWd: 0.79 cm LV mora. diameter/BSA (cm/m^2): 3.0 LV sys. diameter/BSA (cm/m^2): 1.8 LA dimension: 3.8 cm RA long axis: 5.0 cm LA A2 area: 24.7 cm2 RA area: 16.1 cm2 LA A4 area: 24.5 cm2 RA vol: 43.9 ml LA length (vol): 5.9 cm RA : 26.2 ml/m2 LA vol: 86.4 ml IVC diam: 1.7 cm LA vol index: 51.6 ml/m2 RVDd major: 5.7 cm RVD1 (basal): 3.6 cm RVD2 (mid): 2.9 cm Doppler Measurements & Calculations Ao V2 max: 133.5 cm/sec Med Peak E' Maurice: 5.8 cm/sec Ao V2 mean: 93.1 cm/sec Lat Peak E' Maurice: 8.8 cm/sec Ao max P.1 mmHg MR ERO: 0.17 cm2 Ao mean P.9 mmHg Ao V2 VTI: 32.0 cm TR max maurice: 271.0 cm/sec MR flow rate: 88.2 cm3/sec TR max P.4 mmHg MR PISA radius: 0.60 cm PA V2 max: 73.7 cm/sec PA V2 mean: 49.8 cm/sec PA mean P.2 mmHg PA Accel Time: 0.13 sec Electronically signed by: Ori Granda on Reading Physician:04/30/2019 05:57 PM
== END ==
PROVIDERS: PCP Family Medicine; Visit Provider Family Medicine
DX: I08.1 Rheumatic disorders of both mitral and tricuspid valves (principal); I95.9 Hypotension, unspecified
CPT/HCPCS: 93306

== ENCOUNTER → 2020-01-22 15:14 | Outpatient (CLI) | payer MEDICARE, SELFPAY ==
[2020-01-04 09:32] VITALS: BMI 23.1
--- NOTE | 2020-01-22 15:29 | DI.MG.S_ITS ---
Patient Name: FERNANDO EUCEDA date: 1935 Sex: F Attending Physician: Lucas Indications: Date: 01/22/2020 15:23 At the request of: LAUREN GANN Procedure: MM screening mammo unilat LT UNILATERAL LEFT DIGITAL SCREENING MAMMOGRAM 3D/2D WITH CAD POST MASTECTOMY: 01/22/2020 CLINICAL: Routine screening. Personal history of right breast cancer. Family history of breast cancer. Comparison is made to exams dated: 12/30/2018 mammogram, 11/29/2017 mammogram, and 11/18/2016 mammogram - [facility]. There are scattered fibroglandular elements in left breast. Current study was also evaluated with a Computer Aided Detection (CAD) system. No significant masses, calcifications, or other findings are seen in the breast. There has been no significant interval change. IMPRESSION: NEGATIVE There is no mammographic evidence of malignancy. A 1 year screening mammogram is recommended. This exam was interpreted at Station ID: [id number]. NOTE: For mammograms, a report in lay terms will be sent to the patient. Approximately 15% of breast malignancies will not be visualized mammographically. In the management of a palpable breast mass, a negative mammogram must not discourage biopsy of a clinically suspicious lesion. Electronically Signed By: Brielle buenrostro/eileen:01/24/2020 13:05:25 letter sent: Normal Exam ACR BI-RADS Category 1: Negative [id number]
== END ==
PROVIDERS: PCP Family Medicine; Referring Provider Family Medicine; Visit Provider Family Medicine
DX: Z12.31 Encounter for screening mammogram for malignant neoplasm of breast (principal); Z85.3 Personal history of malignant neoplasm of breast; Z80.3 Family history of malignant neoplasm of breast
CPT/HCPCS: 77063; 77067

== ENCOUNTER → 2021-01-29 10:57 | Outpatient (CLI) | payer OTHER, SELFPAY ==
[2020-01-04 09:32] VITALS: BMI 23.1
== END ==
PROVIDERS: PCP Family Medicine; Referring Provider Family Medicine; Visit Provider Family Medicine
DX: M81.0 Age-related osteoporosis without current pathological fracture (principal); Z78.0 Asymptomatic menopausal state; Z85.3 Personal history of malignant neoplasm of breast; Z87.891 Personal history of nicotine dependence
CPT/HCPCS: 77080

== ENCOUNTER → 2021-05-14 09:23 | Outpatient (CLI) | payer OTHER, SELFPAY ==
[2020-01-04 09:32] VITALS: BMI 23.1
--- NOTE | 2021-05-14 | DI.MG.S_ITS ---
UNILATERAL LEFT DIGITAL SCREENING MAMMOGRAM 3D/2D WITH CAD POST MASTECTOMY: 05/14/2021 CLINICAL: Routine screening. Breast cancer. Family history of breast cancer. Comparison is made to exams dated: 01/22/2020 mammogram, 12/30/2018 mammogram, and 11/29/2017 mammogram - [facility]. The tissue of left breast is heterogeneously dense. This may lower the sensitivity of mammography. Current study was also evaluated with a Computer Aided Detection (CAD) system. No significant masses, calcifications, or other findings are seen in the breast. There has been no significant interval change. IMPRESSION: NEGATIVE There is no mammographic evidence of malignancy. A 1 year screening mammogram is recommended. This exam was interpreted at Station ID: [id number]. NOTE: For mammograms, a report in lay terms will be sent to the patient. Approximately 15% of breast malignancies will not be visualized mammographically. In the management of a palpable breast mass, a negative mammogram must not discourage biopsy of a clinically suspicious lesion. Electronically Signed By: Corey martines/eileen:05/14/2021 11:44:52 letter sent: Normal Exam ACR BI-RADS Category 1: Negative [id number]
== END ==
PROVIDERS: PCP Family Medicine; Referring Provider Family Medicine; Visit Provider Family Medicine
DX: Z12.31 Encounter for screening mammogram for malignant neoplasm of breast (principal); Z85.3 Personal history of malignant neoplasm of breast; Z80.3 Family history of malignant neoplasm of breast
CPT/HCPCS: 77063; 77067

== ENCOUNTER → 2021-06-20 11:23 | Outpatient (CLI) | payer OTHER, SELFPAY ==
[2020-01-04 09:32] VITALS: BMI 23.1
[2021-06-20 12:43] LABS: Add Manual Diff / Slide Review NO; Basophils Absolute Auto 100 /uL (0-100); Eosinophils Absolute Auto 100 /uL (0-450); Eosinophils Percent Auto 1.9 % (2-4); Hematocrit 34.6 % (36-46); Hemoglobin 11.6 g/dL (12.0-16.0); Lymphocytes Absolute Auto 1800 /uL (1100-4500); Lymphocytes Percent Auto 32.7 % (25-40); Mean Corpuscular HGB Conc 33.4 % (30-36); Mean Corpuscular Hemoglobin 31.3 PG (26-34); Mean Corpuscular Volume 93.6 fL (80-100); Monocytes Absolute Auto 600 /uL (0-900); Monocytes Percent Auto 11.4 % (3-14); Neutrophils Absolute Auto 2900 /uL (1500-7000); Platelet Count 217 X10^3/uL (150-400); Red Cell Distribution Width 12.5 % (11.6-14.8); White Blood Cell Count 5.4 X10^3/uL (4.5-11.0)
[2021-06-20 13:16] LABS: Alanine Aminotransferase 21 IU/L (<35); Albumin 3.9 g/dL (3.5-5.0); Albumin Globulin Ratio 1.5 (1.0-2.8); Alkaline Phosphatase 65 U/L (38-126); Aspartate Aminotransferase 34 IU/L (14-36); BUN Creatinine Ratio 22.7 (6-22); Bilirubin Total 0.4 mg/dL (0.2-1.3); Blood Urea Nitrogen 15 mg/dL (7-17); Calcium 9.3 mg/dL (8.4-10.2); Carbon Dioxide 30 mmol/L (22-32); Chloride 101 mmol/L (98-107); Cholesterol 199 mg/dL (140-199); Estimated Glomerular Filt Rate > 60.0 mL/min (>60); Globulin 2.6 g/dL (1.7-4.1); Glucose 92 mg/dL (80-110); HDL Cholesterol 100 mg/dL (40-60); HEMOLYSIS < 15 (0-50); LDL Cholesterol Calculated 91 mg/dL (<100); Potassium 4.1 mmol/L (3.4-5.1); Sodium 134 mmol/L (137-145); Total Protein 6.5 g/dL (6.3-8.2); Triglycerides 39 mg/dL (35-150)
[2021-06-20 13:43] LABS: Thyroid Stimulating Hormone 1.62 uIU/mL (0.47-4.68)
[2021-06-20 14:04] LABS: Vitamin B12 429 pg/mL (239-931)
== END ==
PROVIDERS: PCP Family Medicine; Referring Provider Family Medicine; Visit Provider Family Medicine
DX: E53.8 Deficiency of other specified B group vitamins (principal); Z13.220 Encounter for screening for lipoid disorders; R53.83 Other fatigue; M81.0 Age-related osteoporosis without current pathological fracture
CPT/HCPCS: 36415; 80053; 80061; 82607; 84443; 85025

== ENCOUNTER → 2022-06-12 08:28 | Outpatient (CLI) | payer OTHER, SELFPAY ==
[2020-01-04 09:32] VITALS: BMI 23.1
--- NOTE | 2022-06-12 | DI.MG.S_ITS ---
UNILATERAL LEFT DIGITAL SCREENING MAMMOGRAM 3D/2D WITH CAD: 06/12/2022 CLINICAL: Routine screening. Personal history of right breast cancer. Family history of breast cancer. Comparison is made to exams dated: 05/14/2021 mammogram, 01/22/2020 mammogram, and 12/30/2018 mammogram - [facility]. The left breast is heterogeneously dense, which may obscure small masses (category c / 51-75% glandular tissue). Current study was also evaluated with a Computer Aided Detection (CAD) system. No significant masses, calcifications, or other findings are seen in the breast. There has been no significant interval change. IMPRESSION: NEGATIVE There is no mammographic evidence of malignancy. A 1 year screening mammogram is recommended. This exam was interpreted at Station ID: [id number]. NOTE: For mammograms, a report in lay terms will be sent to the patient. Approximately 15% of breast malignancies will not be visualized mammographically. In the management of a palpable breast mass, a negative mammogram must not discourage biopsy of a clinically suspicious lesion. Electronically Signed By: Corey martines/eileen:06/12/2022 11:28:56 letter sent: Normal Exam ACR BI-RADS Category 1: Negative 3341F
== END ==
PROVIDERS: PCP Family Medicine; Referring Provider Family Medicine; Visit Provider Family Medicine
DX: Z12.31 Encounter for screening mammogram for malignant neoplasm of breast (principal); Z85.3 Personal history of malignant neoplasm of breast; Z80.3 Family history of malignant neoplasm of breast
CPT/HCPCS: 77063; 77067

== ENCOUNTER → 2022-06-19 09:40 | Outpatient (CLI) | payer OTHER, SELFPAY ==
[2020-01-04 09:32] VITALS: BMI 23.1
--- NOTE | 2022-06-19 | DI.RAD.S_ITS ---
PROCEDURE: XR KNEE RT 3V INDICATIONS: Pain in right knee TECHNIQUE: 3 views of the knee were acquired. COMPARISON: None. FINDINGS: Bones: No fractures or dislocations. No suspicious bony lesions. Soft tissues: No joint effusion. No suspicious soft tissue calcifications. IMPRESSION: No acute finding. Dictated by: Kevin Reyna M.D. on 06/19/2022 at 11:05 Approved by: Kevin Reyna M.D. on 06/19/2022 at 11:07
== END ==
PROVIDERS: PCP Family Medicine; Referring Provider Family Medicine; Visit Provider Family Medicine
DX: M25.561 Pain in right knee (principal)
CPT/HCPCS: 73562

== ENCOUNTER → 2022-10-02 14:39 | Outpatient (CLI) | payer OTHER, SELFPAY ==
[2020-01-04 09:32] VITALS: BMI 23.1
--- NOTE | 2022-10-02 | DI.RAD.S_ITS ---
PROCEDURE: XR FOOT RT MIN 3V INDICATIONS: right foot pain TECHNIQUE: 3 views of the foot were acquired. COMPARISON: None. FINDINGS: Bones: Mildly displaced intra-articular fracture involving the 5th metatarsal base.. No suspicious bony lesions. Mild 1st MTP and diffuse interphalangeal joint space narrowing with mild periarticular osteophyte formation. Calcaneal enthesopathy. Soft tissues: No tibiotalar joint effusion. Achilles tendon appears normal. IMPRESSION: 5th metatarsal base fracture. Dictated by: Alec Gallardo [facility] Interpreted: Brielle Kc MD on 10/02/2022 at 15:15 Transcribed by: JOLENE on 10/02/2022 at 15:16 Approved by: Brielle Kc M.D. on 10/10/2022 at 8:52
== END ==
PROVIDERS: PCP Family Medicine; Referring Provider Family Medicine; Visit Provider Family Medicine
DX: S92.351A Displaced fracture of fifth metatarsal bone, right foot, initial encounter for closed fracture; M79.671 Pain in right foot
CPT/HCPCS: 73630

== ENCOUNTER → 2023-01-03 | Outpatient (CLI) | payer OTHER, SELFPAY ==
[2020-01-04 09:32] VITALS: BMI 23.1
--- NOTE | 2023-01-03 | DI.RAD.S_ITS ---
Bone Density Report Name: FERNANDO EUCEDA Age: 87 Sex: Female Ethnicity: White Date of : 1935 Indication: osteopenia; prior fracture; Referring Provider: LAUREN GANN Study: Bone densitometry was performed. Exam Date: January 03, 2023 Accession number: [id number] Bone Density: Region BMD T-score Z-score Classification AP Spine(L1, L2, L3) 0.862 -1.4 1.4 Osteopenia Femoral Neck (Left) 0.586 -2.4 0.2 Osteopenia Total Hip (Left) 0.719 -1.8 0.5 Osteopenia Femoral Neck (Right) 0.553 -2.7 -0.1 Osteoporosis Total Hip (Right) 0.721 -1.8 0.5 Osteopenia Total Hip Mean 0.720 -1.8 0.5 Osteopenia World Health Organization criteria for BMD impression classify patients as: Normal (T-score at or above -1.0), Osteopenia (T-score between -1.0 and -2.5), or Osteoporosis (T-score at or below -2.5). 10-year Fracture Risk: FRAX not reported because: Some T-score for Spine Total or Hip Total or Femoral Neck at or below -2.5 Prior hip or vertebral fracture Previous Exams: -- Region Exam Age BMD T-score BMD Change BMD Change Date g/cm2 vs Baseline vs Previous -- AP Spine (L1-L3) 01/03/2023 87 0.862 -1.4 -0.008 (-0.9%)# -0.008 (-0.9%)# 01/29/2021 85 0.870 -1.3 Total Hip(Left) 01/03/2023 87 0.719 -1.8 -0.003 (-0.4%)# -0.003 (-0.4%)# 01/29/2021 85 0.722 -1.8 Total Hip(Right) 01/03/2023 87 0.721 -1.8 -0.025 (-3.4%)# -0.025 (-3.4%)# 01/29/2021 85 0.746 -1.6 -- *Denotes significance at 95% confidence level, LSC for AP Spine = 0.022 g/cm2, LSC for Total Hip = 0.027 g/cm2 # Denotes dissimilar scan types or analysis methods Impression: The patient has established osteoporosis, based on the Right Femoral Neck T-score and the existence of a prior fracture. The patient has risk factors, including: previous fracture. No significant bone loss was observed. Discussion: HIGH RISK OF FRACTURE. BONE DENSITY IS UNDESIRABLY LOW AT ONE OR MORE SKELETAL SITES, CONSISTENT WITH POSTMENOPAUSAL OSTEOPOROSIS. This patient's lowest T-score, in a patient who has previously fractured, meets the World Health Organization's (WHO) criteria for severe osteoporosis. In untreated patients, the risk of osteoporotic fracture increases approximately two-fold for each 1.0 SD decrease in T-score. Low bone density is not the only risk factor for fracture; also consider factors such as patient's age, frailty or poor health, risk of falling, risk of injury, previous osteoporotic fracture, family history of osteoporosis, cigarette smoking, low body weight, etc. Not everyone with low bone mineral density has osteoporosis; osteomalacia and other metabolic bone disorders should also be considered. Patients who have osteoporosis should be evaluated for specific diseases and conditions (secondary causes) that may cause or contribute to bone loss. The [place] [employer]ocrinologists (AACE) and National Osteoporosis Foundation (NOF) recommend pharmacologic intervention for all postmenopausal women with a previous hip or vertebral fracture and a T-score in this range. The patient should follow a healthful lifestyle (good nutrition with adequate calcium and vitamin D, and appropriate weight-bearing exercise). Follow-Up: Consider a repeat BMD and Vertebral Fracture Assessment (VFA) exam in 2 years or sooner if medically necessary, to reassess this patient's status. Reported by: VITALY JUAN MD on 01/03/2023 10:03:00 AM.
== END ==
LOC: RAD 09:34
PROVIDERS: PCP Family Medicine; Referring Provider Family Medicine; Visit Provider Family Medicine
DX: M81.0 Age-related osteoporosis without current pathological fracture (principal); Z87.311 Personal history of (healed) other pathological fracture
CPT/HCPCS: 77080

== ENCOUNTER → 2023-09-09 11:41 | Outpatient (CLI) | payer OTHER, SELFPAY ==
[2020-01-04 09:32] VITALS: BMI 23.1
--- NOTE | 2023-09-09 | DI.RAD.S_ITS ---
PROCEDURE: XR CHEST 2V INDICATIONS: ACUTE COUGH TECHNIQUE: 2 views of the chest were acquired. COMPARISON: [facility], CR, XR CHEST 2V, 06/03/2018, 8:32. FINDINGS: Surgical changes and devices: Surgical clips are noted in the region of right axilla. Lungs and pleura: Lungs are clear. No pleural effusions or pneumothorax. Mediastinum: Mediastinal contours are normal. Heart size is normal. Bones and chest wall: No suspicious bony abnormalities. Soft tissues appear unremarkable. IMPRESSION: No acute cardiopulmonary pathology. Dictated by: Collin Lomeli M.D. on 09/09/2023 at 14:18 Approved by: Collin Lomeli M.D. on 09/09/2023 at 14:20
== END ==
LOC: RAD 11:42
PROVIDERS: PCP Family Medicine; Referring Provider Family Medicine; Visit Provider Family Medicine
DX: R05.1 Acute cough (principal)
CPT/HCPCS: 71046

== ENCOUNTER → 2024-07-02 10:11 | Outpatient (CLI) | payer OTHER, SELFPAY ==
[2020-01-04 09:32] VITALS: BMI 23.1
--- NOTE | 2024-07-02 10:13 | DI.MG.S_ITS ---
UNILATERAL LEFT DIGITAL SCREENING MAMMOGRAM 3D/2D WITH CAD POST MASTECTOMY: 07/02/2024 CLINICAL: Routine screening. Personal history of right breast cancer. Comparison is made to exams dated: 06/12/2022 mammogram, 05/14/2021 mammogram, and 01/22/2020 mammogram - [facility]. The breasts are heterogeneously dense, which may obscure small masses (category c / 51-75% glandular tissue). Current study was also evaluated with a Computer Aided Detection (CAD) system. No significant masses, calcifications, or other findings are seen in the breast. There has been no significant interval change. IMPRESSION: NEGATIVE There is no mammographic evidence of malignancy. A 1 year screening mammogram is recommended. This exam was interpreted at Station ID: [id number]. NOTE: For mammograms, a report in lay terms will be sent to the patient. Approximately 15% of breast malignancies will not be visualized mammographically. In the management of a palpable breast mass, a negative mammogram must not discourage biopsy of a clinically suspicious lesion. Electronically Signed By: Raffaele kurtz/eileen:07/02/2024 16:41:04 letter sent: Normal Exam ACR BI-RADS Category 1: Negative
--- NOTE | 2024-07-02 10:13 | DI.RAD.S_ITS ---
PROCEDURE: XR DEXA AXIAL SKELETON INDICATIONS: ROUTINE SCREENING/OSTEOPOROSIS,POSTMENOPAUSAL COMPARISON: [facility], , XR DEXA AXIAL SKELETON, 01/03/2023, 9:52. FINDINGS: Lumbar Spine: Bone mineral density 0.83 g/cm2, T score -1.5, compared to -1.3. Left Hip: Bone mineral density 0.720 g/cm2, T score -1.8, unchanged. Left Femoral Neck: Bone mineral density 0.564 g/cm2, T score -2.6, compared to -2.4. Right Hip: Bone mineral density 0.719 g/cm2, T score -1.8, unchanged. Right Femoral Neck: Bone mineral density 0.543 g/cm2, T score -2.8, compared to -2.7. Fracture Risk Calculation (when applicable): 10-year fracture risk of a major osteoporotic fracture 21 percent and of a hip fracture 7.4 percent. (T score greater or equal to -1.0 to: NORMAL) (T score from -1.1 to -2.4: OSTEOPENIA) (T score less than or equal to -2.5: OSTEOPOROSIS) IMPRESSION: Osteoporosis in the femoral necks bilaterally, progressive. Slight progression of osteopenia in the lumbar spine. Follow-up guidelines as follows: Osteoporosis: Consider a repeat DEXA and Vertebral Fracture Assessment (VFA) exam in 2 years or sooner if medically necessary, to reassess this patient's status. Osteopenia: Consider a repeat DEXA in 2-3 years to reassess this patient's status, or if there is a new clinical indication. Normal: Consider a repeat DEXA in 5 years or sooner, or if there is a new clinical indication. All treatment decisions require clinical judgment and consideration of individual patient factors, including patient preferences, comorbidities, previous drug use, risk factors not captured in the FRAX model (e.g., frailty, falls, vitamin D deficiency, increased bone turnover, interval significant decline in bone density ) and possible under- or over-estimation of fracture risk by FRAX. In addition, the NOF Guide recommends that FDA-approved medical therapies be considered in postmenopausal women and men age >= 50 years with a: * Hip or vertebral (clinical or morphometric) fracture * T-score of <=-2.5 at the spine or hip * Ten-year fracture probability by FRAX of >= 3% for hip fracture or >=20% for major osteoporotic fracture. People with diagnosed cases of osteoporosis or at high risk for fracture should have regular bone mineral density tests. For patients eligible for Medicare, routine testing is allowed once every 2 years. The testing frequency can be increased to one year for patients who have rapidly progressing disease, those who are receiving or discontinuing medical therapy to restore bone mass, or have additional risk factors. Dictated by: Nai Echevarria M.D. on 07/02/2024 at 16:42 Approved by: Nai Echevarria M.D. on 07/02/2024 at 16:48
== END ==
LOC: RAD 10:12
PROVIDERS: PCP Family Medicine; Referring Provider Family Medicine; Visit Provider Family Medicine
DX: Z12.31 Encounter for screening mammogram for malignant neoplasm of breast (principal); M81.0 Age-related osteoporosis without current pathological fracture; Z85.3 Personal history of malignant neoplasm of breast; R92.333 Mammographic heterogeneous density, bilateral breasts
CPT/HCPCS: 77063; 77067; 77080

== ENCOUNTER 2025-02-18 00:01 | Emergency (ER) | payer OTHER, SELFPAY ==
[2020-01-04 09:32] VITALS: BMI 23.1
[2025-02-18] VITALS (8 sets, daily range): BP systolic 134–151; BP diastolic 62–72; PULSE 61–68; RESP 14–25; TEMP 36.3; O2SAT 92–98
--- NOTE | 2025-02-18 00:41 | ED_ITS ---
HPI - Abdominal Pain General Chief Complaint: Abdominal Pain Stated Complaint: Severe Lower abdomen pain, stomach is distended Time Seen by Provider: 02/18/25 00:21 History of Present Illness HPI narrative: 89-year-old female patient with a history of CHF, depression and osteoporosis who complains of lower abdominal pain since yesterday afternoon, worse on the right side. However good appetite with no nausea, vomiting or diarrhea. She feels like she might need to have a bowel movement but does not necessarily feel constipated. No dysuria or frequency. Previous cholecystectomy only Related Data Previous Rx's ?Medication ?Instructions ?Recorded bisacodyl 10 mg rectal suppository [address] DAILY PRN Constipation 06/05/18 #10 ea calcitonin (salmon) 200 1 spry intranasal DAILY #1 m L 06/05/18 unit/actuation nasal spray cefuroxime axetil 250 mg tablet 500 mg (2 x 250 mg) PO BID #10 tabs 06/05/18 citalopram 20 mg tablet 20 mg PO DAILY #30 tabs 05/15 09/28 furosemide 20 mg tablet 20 mg PO DAILY #10 tabs 05/15 09/28 hydromorphone 2 mg tablet 2 mg PO Q4HR PRN Pain, Moder ate 06/05/18 (4-6) #30 tabs ibuprofen 600 mg tablet 600 mg PO Q6HR PRN As Needed For 06/05/18 Fever/Mild Pain #60 tabs polyethylene glycol 3350 17 gram 17 gm PO DAILY PRN Co nstipation 06/05/18 oral powder packet #30 ea Allergies Allergy/AdvReac Type Severity Reaction Status Date / Time No Known Drug Allergies Allergy Verified 05/27/18 19:03 Review of Systems Review of Systems ROS Unobtainable: All systems reviewed & are unremarkable except as noted in HPI and below Patient History Medical History (Updated 02/18/25 @ 02:57 by Albino Barahona MD) Breast cancer in female Depression Surgical History Status post mastectomy History of cholecystectomy Family History (Updated 03/25/18 @ 14:25 by Jeremie De Leon MD) Sister Cancer Father Cancer Social History household members: spouse and family alcohol intake frequency: 0-2 drinks per day Exam Narrative Exam Narrative: General: Alert and conversant. No distress. Appears well nourished and well hydrated Craniofacial: No evidence of trauma. Nontender and no swelling. Eyes: PERRLA EOMI conjunctiva clear Lungs: Clear to auscultation with good air movement. No wheezing, rales or rhonchi. No respiratory distress Cardiac: Regular rate and rhythm with no appreciable murmur or gallop Abdomen: Soft, moderate right lower quadrant tenderness but no rebound or guarding. With no distention or masses. Normal bowel sounds. Musculoskeletal: Exam of the extremities, axial spine and ribcage reveals no deformity, bony tenderness or swelling. Range of motion intact Neuro: Alert and oriented. Cranial nerves, motor, sensory and cerebellar all grossly intact. No focal deficit Skin: Warm and normal color. No rashes Psychological: Normal affect and interaction. No evidence of delusion or psychosis. Normal mood. Initial Vital Signs Initial Vital Signs: Vital Signs Pulse Rate 63 02/18/25 00:14 Respiratory Rate 22 02/18/25 00:14 Pulse Oximetry 98 02/18/25 00:14 Course Course Course Narrative: 02:55 Patient sleeping in the room on the [place]. When awoken she describes continued lower abdominal discomfort. Lab work unremarkable. No rebound or guarding. Possible constipation. Patient would like to be discharged home. She will try a few [id number] treatments for constipation. Return to the ER if worse or if not improving Orders Ordered: ED Orders 02/18/25 00:35 Complete Blood Count AUTO DIFF Stat Comprehensive Metabolic Panel Stat Lipase Stat 02/18/25 01:39 UA Complete [Urinalysis and Microscopic] Stat Vital Signs Vital signs: Vital Signs - 8 hr 02/18/25 00:14 02/18/25 00:15 02/18/25 00:15 Temperature Pulse Rate 63 64 Respiratory Rate 22 24 Blood Pressure 150/69 H Pulse Oximetry 98 98 Oxygen Delivery Method 02/18/25 00:30 02/18/25 00:30 02/18/25 00:30 Temperature 97.4 F L Pulse Rate 62 63 Respiratory Rate 18 25 H Blood Pressure 151/65 H 134/62 Pulse Oximetry 98 95 Oxygen Delivery Method Room Air 02/18/25 01:00 02/18/25 01:00 02/18/25 01:30 Temperature Pulse Rate 65 Respiratory Rate 19 Blood Pressure 135/65 149/72 H Pulse Oximetry 92 Oxygen Delivery Method 02/18/25 01:30 02/18/25 02:00 02/18/25 02:30 Temperature Pulse Rate 67 61 62 Respiratory Rate 19 14 17 Blood Pressure Pulse Oximetry 93 96 96 Oxygen Delivery Method 02/18/25 03:00 Temperature Pulse Rate 68 Respiratory Rate Blood Pressure Pulse Oximetry 98 Oxygen Delivery Method MDM - Abdominal Pain Lab Data Attestation: I reviewed the patient's lab results. Lab results narrative: CBC, CMP and urinalysis essentially unremarkable 02/18/25 00:35 02/18/25 00:35 Labs: Lab Results 02/18/25 02/18/25 Range/Units 00:35 01:39 WBC 8.0 (4.5-11.0) X10^3/uL RBC 3.59 L (4.0-5.2) X10^6/uL Hgb 11.6 L (12.0-16.0) g/dL Hct 34.2 L (36-46) % MCV 95.2 (80-100) fL MCH 32.3 (26-34) PG MCHC 33.9 (30-36) % RDW 12.8 (11.6-14.8) % Plt Count 197 (150-400) X10^3/uL Neut % (Auto) 56.9 (50-75) % Lymph % (Auto) 30.5 (25-40) % Orange % (Auto) 9.3 (3-14) % Eos % (Auto) 2.4 (2-4) % Baso % (Auto) 0.9 (0-2) % Neut # (Auto) 4600 (7811-8391) /uL Lymph # (Auto) 2500 (9727-7961) /uL Orange # (Auto) 700 (0-900) /uL Eos # (Auto) 200 (0-450) /uL Baso # (Auto) 100 (0-100) /uL Sodium 134 L (137-145) mmol/L Potassium 4.1 (3.4-5.1) mmol/L Chloride 105 (98-107) mmol/L Carbon Dioxide 23 (22-32) mmol/L BUN 19 H (7-17) mg/dL Creatinine 0.81 (0.52-1.04) mg/dL Estimated GFR > 60 (>60) mL/min BUN/Creatinine Ratio 23.5 H (6-22) Glucose 103 H (70-99) mg/dL Calcium 8.9 (8.4-10.2) mg/dL Total Bilirubin 0.5 (0.2-1.3) mg/dL AST 35 (14-36) IU/L ALT 17 (<35) IU/L Alkaline Phosphatase 63 (38-126) U/L Total Protein 6.6 (6.3-8.2) g/dL Albumin 3.9 (3.5-5.0) g/dL Globulin 2.7 (1.7-4.1) g/dL Albumin/Globulin Ratio 1.4 (1.0-2.8) Lipase 162 (23-300) U/L Urine Color Yellow Urine Appearance Clear Urine pH 6.5 (4.5-8.0) Ur Specific Ponce 1.015 (1.000-1.035) Urine Protein Negative (Negative) Urine Glucose (UA) Negative (Negative) g/dL Urine Ketones Negative (NEGATIVE) Urine Occult Blood Negative (Negative) Urine Nitrate Negative (Negative) Urine Bilirubin Negative (NEGATIVE) Urine Urobilinogen 0.2 (0.2) E.U./dL Ur Leukocyte Esterase Negative (NEGATIVE) Urine RBC None seen (0-5/HPF) Urine WBC None seen (0-5/HPF) Ur Squamous Epith Cells 0-1 /hpf (0-5/HPF) Urine Bacteria Occasional (0-1) (None) Ur Culture Indicated? Cult not indicated Vol Urine Centrifuged 10ml (spun) MDM Narrative Medical decision making narrative: Lower abdominal pain but patient able to sleep comfortably. Possible constipation. No imaging indicated based on lab work and physical exam. Soft abdomen no rebound or guarding. Plan will be for her to try treating constipation at home with MiraLax, milk of magnesia and/or mineral well and increased fiber and fluids. Follow up as needed. Return to the ER if worse Discharge Plan Departure Patient Disposition: Home Clinical Impression: Abdominal pain, lower Instructions: Constipation, DI for Abdominal Pain-Adult Activity Restrictions/Additional Instructions: Plan: Try treating constipation with MiraLax, milk of magnesia or mineral oil. Plenty of fluids and increased fiber. Follow-up with your doctor if not improving. Return to the ER if worse Prescriptions: No Action cefuroxime axetil 250 mg Tablet 500 mg PO BID Qty: 10 0RF polyethylene glycol 3350 17 gram Powder In Packet 17 gm PO DAILY PRN (Reason: Constipation) Qty: 30 0RF hydromorphone 2 mg Tablet 2 mg PO Q4HR PRN (Reason: Pain, Moderate (4-6)) Qty: 30 0RF citalopram 20 mg Tablet 20 mg PO DAILY Qty: 30 0RF calcitonin (salmon) 200 unit/actuation [place],Non-Aerosol 1 spry Intranasal DAILY Qty: 1 0RF bisacodyl 10 mg Suppository [address] DAILY PRN (Reason: Constipation) Qty: 10 0RF furosemide 20 mg Tablet 20 mg PO DAILY Qty: 10 0RF ibuprofen 600 mg Tablet 600 mg PO Q6HR PRN (Reason: As Needed For Fever/Mild Pain) Qty: 60 0RF Referrals: Chiquis Zavala MD [Primary Care Provider, Family Practice] Stand Alone Forms: Patient Portal/API
[2025-02-18 00:54] LABS: Add Manual Diff / Slide Review NO; Hematocrit 34.2 % (36-46); Hemoglobin 11.6 g/dL (12.0-16.0); Lymphocytes Absolute Auto 2500 /uL (1100-4500); Mean Corpuscular HGB Conc 33.9 % (30-36); Mean Corpuscular Hemoglobin 32.3 PG (26-34); Mean Corpuscular Volume 95.2 fL (80-100); Platelet Count 197 X10^3/uL (150-400)
[2025-02-18 01:01] LABS: Alanine Aminotransferase 17 IU/L (<35); Albumin 3.9 g/dL (3.5-5.0); Albumin Globulin Ratio 1.4 (1.0-2.8); Alkaline Phosphatase 63 U/L (38-126); Blood Urea Nitrogen 19 mg/dL (7-17); Calcium 8.9 mg/dL (8.4-10.2); Carbon Dioxide 23 mmol/L (22-32); Chloride 105 mmol/L (98-107); Estimated Glomerular Filt Rate > 60 mL/min (>60); Globulin 2.7 g/dL (1.7-4.1); Glucose 103 mg/dL (70-99); HEMOLYSIS 22 (0-50); Lipase 162 U/L (23-300); Potassium 4.1 mmol/L (3.4-5.1); Sodium 134 mmol/L (137-145); Total Protein 6.6 g/dL (6.3-8.2)
[2025-02-18 01:49] LABS: Appearance Urine UA CLEAR; Bilirubin Urine UA NEGATIVE (NEGATIVE); Color Urine UA YELLOW; Glucose Urine UA NEGATIVE (Negative); Ketones Urine UA NEGATIVE (NEGATIVE); Leukocyte Esterase Urine UA NEGATIVE (NEGATIVE); Nitrite Urine UA NEGATIVE (Negative); Occult Blood Urine UA NEGATIVE (Negative); Protein Urine UA NEGATIVE (Negative); Specific Gravity Urine UA 1.015 (1.000-1.035); Urobilinogen Urine UA 0.2 E.U./dL (0.2)
[2025-02-18 01:51] LABS: pH Urine UA 6.5 (4.5-8.0)
[2025-02-18 02:47] LABS: Culture Indicated Urine Cult Not Indicated
== END 2025-02-18 03:25 | disposition home or self-care (01) ==
PROVIDERS: Emergency Provider Emergency Medicine; PCP Family Medicine
DX: R10.30 Lower abdominal pain, unspecified (principal); K59.00 Constipation, unspecified
CPT/HCPCS: 36415; 80053; 81001; 83690; 85025; 99283; J0330; J1100; J1171; J2405; J2704; J3010; J3490